=== PATIENT | female | born 1945 | race Caucasian/White ===

== ENCOUNTER → 2016-12-14 | Outpatient (CLI) | payer OTHER ==
--- NOTE | 2016-12-14 14:05 | MAMMOGRAPHY REPORT ---
BILATERAL DIGITAL SCREENING MAMMOGRAM WITH CAD: 12/14/2016 CLINICAL HISTORY: Routine screening examination. TECHNIQUE: Bilateral CC and MLO views were obtained. Current study was also evaluated with a Compute r Aided Detection (CAD) system. COMPARISON: Comparison is made to exams dated: 12/12/2015 mammogram, 12/10/2014 mammogram, 12/06/2013 m ammogram, 12/05/2012 mammogram, 12/03/2011 mammogram, and 12/01/2010 mammogram - [facility] enter. BREAST COMPOSITION: There are scattered areas of fibroglandular density in both breasts. FINDINGS: There are mild vascular calcifications bilaterally, and a benign coarse calcification in t he anterior left breast. There are also diffuse benign round and punctate microcalcifications mostly throughout the middle and anterior one third of each breast. No new suspicious mass, architectural distortion or cluster of microcalcifications is seen. IMPRESSION: ACR BI-RADS CATEGORY 1: NEGATIVE There is no mammographic evidence of malignancy. A 1 year screening mammogram is recommended. The pa tient will receive written notification of the results. Approximately 10% of breast cancers are not detected with mammography. A negative mammographic report should not delay biopsy if a clinically suggestive mass is present. Selam Patel M.D. ay/:12/14/2016 11:10:22 Lead Simulation Modeling Engineer: Donna VELEZ(Crow)(), [facility] letter sent: Normal 1/2 BI-RADS Code: ACR BI-RADS Category 1: Negative
== END | disposition home or self-care (01) ==
LOC: C.MAMM 10:24
PROVIDERS: ATTEND Family Medicine
DX: Z12.31 Encounter for screening mammogram for malignant neoplasm of breast (principal)

== ENCOUNTER → 2017-12-15 | Outpatient (CLI) | payer OTHER ==
--- NOTE | 2017-12-15 14:56 | MAMMOGRAPHY REPORT ---
BILATERAL DIGITAL SCREENING MAMMOGRAM TOMOSYNTHESIS WITH CAD: 12/15/2017 CLINICAL HISTORY: Routine screening. Patient has no complaints. TECHNIQUE: The study was acquired using full field digital technology and interpreted from soft copy. Breast tomosynthesis in addition to standard 2D mammography was performed. Current study was also ev aluated with a Computer Aided Detection (CAD) system. COMPARISON: Comparison is made to exams dated: 12/14/2016 mammogram, 12/12/2015 mammogram, 12/10/2014 m ammogram, 12/06/2013 mammogram, 12/05/2012 mammogram, and 12/03/2011 mammogram - [facility] enter. BREAST COMPOSITION: There are scattered areas of fibroglandular density in both breasts. FINDINGS: No suspicious masses, calcifications, or areas of architectural distortion are noted in either breast . There has been no significant interval change compared to prior exams. Scattered bilateral benign-a ppearing calcifications are not significantly changed. IMPRESSION: ACR BI-RADS CATEGORY 2: BENIGN There is no mammographic evidence of malignancy. A 1 year screening mammogram is recommended.( 019) The patient will receive written notification of the results. Some breast cancers are not detected with mammography. A negative mammographic report should not saurabh y biopsy if a clinically suggestive mass is present. Florinda Odell M.D. /:12/15/2017 14:10:20 Master Dyer: Michaela Dumont [facility] letter sent: Normal 1/2 BI-RADS Code: ACR BI-RADS Category 2: Benign
== END | disposition home or self-care (01) ==
LOC: C.MAMM 10:19
PROVIDERS: ATTEND Family Medicine
DX: Z12.31 Encounter for screening mammogram for malignant neoplasm of breast (principal)

== ENCOUNTER 2023-11-02 06:56 | Observation (INO) ==
--- OUTSIDE RECORDS SUMMARY | 2023-11-02 07:26 | External Medical Summary ---
Author Name Unknown Address Unknown Organization [id number]:[facility] [address] [place] [address] Laboratory Report Ordering Provider Test Date Status RIANYOJANA 10/27/2023 13:15:17 Final Warfarin Therapy
INR: 2 .0-3.0 conventional anticoagulation
INR: 2.5- 3.5 high intensity anticoagulation Observation Date Value Abnormality Reference (Units ) Status PT 10/27/2023 13:15:17 13.1 11.6-15.2 (seconds) Final INR 10/27/2023 13:15:17 1.0 0.8-1.2 Final Performing Location LAB[facility] [address] [place] [id number]
--- OUTSIDE RECORDS SUMMARY | 2023-11-02 07:26 | External Medical Summary ---
Author Name Unknown Address Unknown Organization [id number]:[facility] [place] [facility] [address] [place] [address] Laboratory Report Ordering Provider Test Date Status RIANYOJANA 10/27/2023 13:15:17 Final Observation Date Value Abnormality Reference (Units ) Status TSH 10/27/2023 13:15:17 55.30 Above high normal 0. 27-4.20 (uIU/mL) Final Performing Location LABORATORY C - [address] [place] [address]
--- OUTSIDE RECORDS SUMMARY | 2023-11-02 07:26 | External Medical Summary ---
Author Name Unknown Address Unknown Organization [id number]:[facility] [address] [place] [address] Laboratory Report Ordering Provider Test Date Status YOJANA MODI 10/27/2023 13:15:17 Final Observation Date Value Abnormality Reference (Units ) Status BUN 10/27/2023 13:15:17 22 Above high normal 6-20 (mg/dL) Final Creatinine 10/27/2023 13:15:17 1.4 Above high normal 0.5-1.0 (mg/dL) Final Glomerular filtration rate/1.73 sq M.predicted [Volume Rate/Area] in Serum, Plasma or Blood by Creatinine-based formula (CKD-EPI) 10/27/2023 13:15:17 38 Below low normal >=60 (mL/min) Final eGFR is calculated based on the CKD-EPI 2020 equation Sodium 10/27/2023 13:15:17 136 135-146 (m mol/L) Final Potassium 10/27/2023 13:15:17 4.0 3.5-5.1 (m mol/L) Final Cl 10/27/2023 13:15:17 97 Below low normal 98- 107 (mmol/L) Final CO2 10/27/2023 13:15:17 24 22-32 (mmo l/L) Final Anion gap 10/27/2023 13:15:17 15 7-15 (mmol /L) Final Glucose 10/27/2023 13:15:17 209 Above high normal 70 -120 (mg/dL) Final Albumin 10/27/2023 13:15:17 4.5 3.8-5.0 (g /dL) Final AST (Aspartate aminotransferase) 10/27/2023 13:15:17 43 Above high normal 10-35 (U/L) Final Alk Phos 10/27/2023 13:15:17 77 35-130 (U/ L) Final Bilirubin, Total 10/27/2023 13:15:17 0.4 <=1 .2 (mg/dL) Final Calcium 10/27/2023 13:15:17 10.0 8.4-10.2 ( mg/dL) Final Protein 10/27/2023 13:15:17 7.6 6.0-8.3 (g /dL) Final ALT (Alanine aminotransferase) 10/27/2023 13:15:17 25 10-35 (U/L) Eduardo bennett Performing Location LABORATORY [facility] [address] [facility] [address]
--- OUTSIDE RECORDS SUMMARY | 2023-11-02 07:26 | External Medical Summary | Summary of Care ---
Author Name Unknown Organization [facility] Address [address] [facility] [address] Phone [phone] Care Team Providers Care Assisted Living Manager Name Role Phone Mayelin Ritter MD Primary Care Provider [phone] Reason for Visit * Reason Comments Follow Up Encounter Details Date Type Department Care Team (Late st Contact Info) Description 09/14/2023 4:00 PM EDT Office Visit Cardiology, [facility] [address] [place] [address] Ricardo Deluna MD [address] [place] [address] HTN, goal below 140/90*; S/P angioplasty with stent; Old NM (myocardial infarction) Allergies No known active allergiesdocumented as of this encounter (statuses as of 09/14/2023) Medications Medication Sig Dispensed Refills Start Date End Date Status ASPIRIN EC LOW STRENGTH TBEC 81 MG OR take one tablet daily 34 5 4 Active nitroglycerin (NITROSTAT) 0.4 MG SUBLIndications: S/P angioplasty with stent 1 Tab under tongue every 5 MIN X 3 for CHEST PAIN 25 Tab 5 7 Active Additional Information Patient not taking.Reported on 09/14/2023 OneTouch Ultra In Vitro Strip (Glucose Blood)Indication s:Type 2 diabetes mellitus with hemoglobin A1c goal of less than 8.0% ([facility]) TEST BLOOD SUGAR THREE TIMES PER DAY DIRECTED - UNCONTROLLED DIABETES 300 Strip 3 3 Active metFORMIN HCl 850 MG Oral Tablet (Glucophage)Shayy cations:Type 2 diabetes mellitus with hemoglobin A1c goal of less than 8.0% (HCC) TAKE 1 TABLET BY MOUTH THREE TIMES A DAY WITH MEALS 300 Tablet 3 3 Active B-12 1000 MCG Oral TabletIndication s:Low serum vitamin B12 Take 1 tab by mouth daily. 0 3 Active Levothyroxine Sodium 88 MCG Oral Tablet (Levoxyl)Indicat ions:Hypothyroid ism, unspecified type Take 1 Tablet by mouth in the morning. (at least 30 min prior to breakfast or other meds). 90 Tablet 3 3 Active Pravastatin Sodium 80 MG Oral TabletIndication s:Dyslipidemia, goal LDL below 70 TAKE 1 TABLET BY MOUTH EVERY DAY 90 Tablet 3 4 Active Metoprolol Succinate ER 25 MG Oral Tablet Extended Release 24 Hour (toPROL XL)Indications:H TN, goal below 140/90 TAKE 1 TABLET BY MOUTH EVERY DAY IN THE MORNING 90 Tablet 3 4 Active amLODIPine Besylate 5 MG Oral Tablet (Norvasc)Indicat ions:HTN, goal below 140/90,Old NM (myocardial infarction) TAKE 1 TABLET BY MOUTH EVERY DAY 90 Tablet 3 4 Active Citalopram Hydrobromide 20 MG Oral Tablet (CeleXA) TAKE 1 TABLET BY MOUTH EVERY DAY 90 Tablet 1 4 Active Ezetimibe 10 MG Oral Tablet (Zetia)Indicatio ns:HTN, goal below 140/90,Old NM (myocardial infarction) TAKE 1 TABLET BY MOUTH EVERY DAY 90 Tablet 3 4 Active glipiZIDE 10 MG Oral Tablet (Glucotrol) TAKE 1 TABLET BY MOUTH TWICE A DAY 30 MINS BEFORE A MEAL 180 Tablet 1 4 Active Isosorbide Mononitrate ER 30 MG Oral Tablet Extended Release 24 Hour (Imdur)Indicatio ns:HTN, goal below 140/90 Take 2 Tablets by mouth in the morning. 180 Tablet 3 4 Active hydroCHLOROthiaz dimitry 25 MG Oral Tablet (Hydrodiuril) Take one 3 days per week 36 Tablet 11 4 Active Losartan Potassium 50 MG Oral Tablet (Cozaar) Take 1 Tablet by mouth in the morning. 90 Tablet 3 4 Active Tradjenta 5 MG Oral Tablet (linaGLIPtin) TAKE 1 TABLET BY MOUTH EVERY DAY 90 Tablet 2 2 09/14/19 24 Discontinued(Delbert hernandez preference/disc ontinuation) Losartan Potassium 50 MG Oral Tablet (Cozaar) TAKE 1 TABLET BY MOUTH TWICE A DAY 180 Tablet 2 4 09/14/19 24 Discontinued Isosorbide Mononitrate ER 30 MG Oral Tablet Extended Release 24 Hour (Imdur)Indicatio ns:HTN, goal below 140/90 TAKE 1 TABLET BY MOUTH EVERY DAY IN THE MORNING 90 Tablet 3 4 09/14/19 24 Discontinued documented as of this encounter (statuses as of 09/14/2023) Active Problems Problem Noted Date Diagnosed Date Chronic kidney disease, stage 3a 08/23/2023 Overview: Per CKD protocol Facet arthropathy, multilevel 09/28/2022 Atherosclerosis of n[place]ki co ronary artery of nik[place]ki heart with stable angina pectoris 02/17/2021 Age-related osteoporosis wit hout current pathological fracture 02/17/2021 Old NM (myocardial infarction) 01/03/2019 Chronic rhinitis 07/16/2015 HTN, goal below 140/90 07/17/2014 Type 2 diabetes mellitus wit h hemoglobin A1c goal of less than 8.0% 06/23/2013 Overview: ICD-10 update of inactive term DYSLIPIDEMIA, GOAL LDL BELOW 70 05/02/2009 Overview: Per Lipid Taxonomy. S/P angioplasty with stent 04/21/2005 Overview: TAXUS- RCA 02/17 GENERALIZED ANXIETY DIS 10/01/1999 Gastroesophageal reflux disease without esophagi tis 11/08/1998 ASCVD 11/08/1998 Hypothyroidism documented as of this encounter (statuses as of 09/14/2023) Resolved Problems Problem Noted Date Diagnosed Date Resolved Date Acute sinusitis 07/16/2015 12/09/2015 Viral URI with cough 07/16/2015 016 HTN, goal below 140/80 01/04/201207/17 Overview: Per HTN Protocol #27. HTN, GOAL BELOW 130/80 06/13/200901/06 Overview: Per HTN Taxonomy. Type 2 diabetes mellitus wit h hemoglobin A1c goal of less than 7.0% 03/14/2009 06/23/2013 Overview: Per Diabetes Taxonomy. ICD-10 update of inactive term Other nonspecific abnormal c ardiovascular system function study 03/29/2007 12/30/2016 Chronic coronary artery disease 03/28/2007 12/30/2016 Type 2 diabetes mellitus wit h hemoglobin A1c goal of less than 7.0% 06/21/2002 03/14/2009 Overview: Per Diabetes Taxonomy. ICD-10 update of inactive term Sequelae of myocardial infarction 04/29/2002 12/30/2016 Menopause 10/01/1999 12/30/2016 HTN, goal below 140/90 06/13 Overview: Per HTN Taxonomy. Mixed dyslipidemia Overview: Per Lipid Taxonomy. documented as of this encounter (statuses as of 09/14/2023) Immunizations Name Administration Dates Next Due COVID-19 mRNA, LNP-s, No Pre serve, 2-Dose Series (1DocWay) 03/12/2021,09/04/2020,08/14/2020 Pneumococcal Conjugate Vacc, 13 Valent (Prevnar) 04/03/2015 Pneumococcal Polysaccharide PPV23 (Pneumovax) 06/23/2010 Season Influenza, Quad, PF, Adjuvanted, 65+ Yrs, IM (FLUAD) 03/13/2020 Seasonal Influenza, PF, 6 M & above, IM , (FluLaval or Fluzone) 03/15/2018,03/01/2017 Seasonal Influenza, Quadriva lent Hd (Fluzone Hd) 02/23/2022,03/27/2021 Seasonal Influenza, Quadriva lent, No Preserve, IM 03/04/2016,03/11/2015 Seasonal Influenza, Split, I IV3, With Preserve, Inj 03/13/2013,03/07/2012,02/26/2011,1009/2009,02/21/2009,03/12/2008,03/23/20 07,02/23/2006 03/13/2014 Seasonal Influenza, Trivalen t, Adjuvanted, 65+ yrs 03/15/2019 TDAP (age 10 and older)(Boostrix) 11/07/2013 documented as of this encounter Social History Tobacco Use Types Packs/Day Years Used Date Smoking Tobacco: Former Cigarettes 0.3 20 0 05/26/1975 - 05/26/1995 Smokeless Tobacco: Never Tobacco Cessation:Counseling Given: Not Answered Comments:quit Alcohol Use Standard Drinks/Week Comments No 0 (1 standard drink = 0.6 oz pur e alcohol) PHQ-2 Answer Date Recorded PHQ Adult Total Score 0 08/28/2020 Hunger Vital Sign Answer Date Recorded Worried About Running Out of Food in the Last Ye ar Never true 01/03/2019 Ran Out of Food in the Last Year Never true 01/03/2019 Sex and Gender Information Value Date Recorded Sex Assigned at Female 03/30/2019 10:54 AM EST Gender Identity Female 03/30/2019 10:54 AM EST Sexual Orientation Straight 03/30/2019 10 :54 AM EST Job Start Date Occupation Industry Not on file Not on file Not on file documented as of this encounter Last Filed Vital Signs Vital Sign Reading Time Taken Comments Blood Pressure 158/66 09/14/2023 4:01 PM EDT Pulse 68 09/14/2023 4:01 PM EDT Temperature - - Respiratory Rate 20 09/14/2023 4:01 PM EDT Oxygen Saturation - - Inhaled Oxygen Concentration - - Weight 66.6 kg (146 lb 12.8 oz) 09/14/2023 4:01 PM EDT Height - - Body Mass Index 26 08/17/2023 5:30 PM EDT documented in this encounter Progress Notes * Ricardo Deluna MD - 09/14/2023 4:11 PM EDT September 14, 2023 Cardiology Follow Up Referring Provider: PCP: MAYELIN [address] [place] [address] Chief Complaint: Follow-up ischemic heart disease SUBJECTIVE: Leyla Catherine is a 77 year old year old female with ongoing cardiac issues 1. Atherosclerotic coronary disease status post anterior septal myocardial infarction in October of 1997. 2. Prior PTCA and stenting of the left anterior descending in 2000. 3. PTCA and stenting of the right coronary artery in 2003. 4. Hypertension. 5. Hyperlipidemia with limited statin intolerance, currently on pravastatin 80 mg per day. 6. Stable class 2 angina pectoris with atypical symptoms at baseline 7. Aortic sclerosis 8. Left bundle-branch block Patient presents today in routine followup. Notes not having felt as well over the last year's timein part in conjunction with loss of . But feels feels more breathless with physical exertion. No chest pains no tachy palpitations no dizziness. Blood pressure is trending lower. No fevers chills unexplained infections. No bleeding difficulties. Still chronic back pain A Complete Review of Systems is as stated above or negative. Patient Active Problem List Diagnosis Code Gastroesophageal reflux disease without esophagitis K21.9 ASCVD I25.10 GENERALIZED ANXIETY DIS F41.1 Hypothyroidism E03.9 S/P angioplasty with stent Z95.820 DYSLIPIDEMIA, GOAL LDL BELOW 70 E78.5 Type 2 diabetes mellitus with hemoglobin A1c goal of less than 8.0% ([facility]) E11.9 HTN, goal below 140/90 I10 Chronic rhinitis J31.0 Old NM (myocardial infarction) I25.2 Atherosclerosis of nikolski coronary artery of nikolski heart with stable angina pectoris ([facility]) I25.118 Age-related osteoporosis without current pathological fracture M81.0 Facet arthropathy, multilevel M47.819 Chronic kidney disease, stage 3a ([facility]) N18.31 Review of patient's allergies indicates: No Known Allergies Current Outpatient Medications Medication Sig Dispense Refill ASPIRIN EC LOW STRENGTH TBEC 81 MG OR take one tablet daily 34 5 metFORMIN HCl 850 MG Oral Tablet (Glucophage) TAKE 1 TABLET BY MOUTH THREE TIMES A DAY WITH MEALS 300 Tablet 3 B-12 1000 MCG Oral Tablet Take 1 tab by mouth daily. Levothyroxine Sodium 88 MCG Oral Tablet (Levoxyl) Take 1 Tablet by mouth in the morning. (at least 30 min prior to breakfast or other meds). 90 Tablet 3 Pravastatin Sodium 80 MG Oral Tablet TAKE 1 TABLET BY MOUTH EVERY DAY 90 Tablet 3 Metoprolol Succinate ER 25 MG Oral Tablet Extended Release 24 Hour (toPROL XL) TAKE 1 TABLET BY MOUTH EVERY DAY IN THE MORNING 90 Tablet 3 Losartan Potassium 50 MG Oral Tablet (Cozaar) TAKE 1 TABLET BY MOUTH TWICE A DAY 180 Tablet 2 amLODIPine Besylate 5 MG Oral Tablet (Norvasc) TAKE 1 TABLET BY MOUTH EVERY DAY 90 Tablet 3 Citalopram Hydrobromide 20 MG Oral Tablet (CeleXA) TAKE 1 TABLET BY MOUTH EVERY DAY 90 Tablet 1 Ezetimibe 10 MG Oral Tablet (Zetia) TAKE 1 TABLET BY MOUTH EVERY DAY 90 Tablet 3 Isosorbide Mononitrate ER 30 MG Oral Tablet Extended Release 24 Hour (Imdur) TAKE 1 TABLET BY MOUTHEVERY DAY IN THE MORNING 90 Tablet 3 glipiZIDE 10 MG Oral Tablet (Glucotrol) TAKE 1 TABLET BY MOUTH TWICE A DAY 30 MINS BEFORE A MEAL 180 Tablet 1 nitroglycerin (NITROSTAT) 0.4 MG SUBL 1 Tab under tongue every 5 MIN X 3 for CHEST PAIN (Patient not taking: Reported on 09/14/2023) 25 Tab 5 OneTouch Ultra In Vitro Strip (Glucose Blood) TEST BLOOD SUGAR THREE TIMES PER DAY DIRECTED - UNCONTROLLED DIABETES 300 Strip 3 No current facility-administered medications for this visit. OBJECTIVE/PHYSICAL EXAMINATION: BP 158/66 (BP Site: Left Arm, BP Position: Sitting, BP Cuff Size: Regular) | Pulse 68 | Resp 20 | Wt 66.6 kg (146 lb 12.8 oz) | BMI 26.00 kg/m | BSA 1.72 m General: no acute distress and stated age Head: normocephalic, no masses, lesions, tenderness or abnormalities Eyes: conjunctiva are pink and non-injected, sclera clear Throat: clear Nares: without discharge Neck: supple, no adenopathy, no bruits, normal jugular venous pulse, no hepatojugular reflux, bilateral carotid bruits are present right greater than left Chest: normal shape and normal respiratory effort Lungs: clear to auscultation and percussion Cardiac Exam: - regular rate & rhythm, harsh grade 2/6 systolic murmur no diastolic murmur, gallop or rub - normal S-1, normal S-2 Abdomen: abdomen soft, non-tender, no abnormal masses, no hepatosplenomegaly, no abdominal bruit, no femoral bruit Musculoskeletal: no gait disturbance, no joint inflammation, no deforming arthritis Extremities: Trivial edema, no cyanosis, pulses intact 2+/4 Neuro: grossly normal exam Data: EKG performed September 14, 2023 , and reviewed personally : Normal sinus rhythm at 60 beats per minute with left bundle branch block Lexiscan stress nuclear study January 28, 2022 Abnormal Lexiscan nuclear stress test. Stress testing is positive for scar without superimposed ischemia. Moderate sized infarct involving the anterior, anterior lateral and inferior septal ly consistent with LAD distribution. Mildly reduced LV systolic function with akinesis of the above segments, EF calculated to be 45%. No previous studies available for comparison. Echocardiogram January 28, 2022 Compared to last available study, there has been no interval change. Normal LV chamber size and wall thickness. Mildly reduced LV systolic function. Calculated LV ejection Fraction = 44% (bi-plane method of discs). There is hypokinesis to akinesis of the mid and apical anterior wall and anterior septum, with scarring of the anterior septum. Grade 1 diastolic dysfunction current Focal calcification of the left coronary cusp along with moderate aortic valve sclerosis. Lipid Panel Results: Results for orders placed or performed in visit on 04/07/16 LIPID PANEL Result Value Ref Range HOURS FASTING 12 hours Triglycerides 123 <200 mg/dL Cholesterol 167 <200 mg/dL HDL Cholesterol 46 >39 mg/dL Cholesterol-HDL Ratio 3.6 LDL Cholesterol 96 0 - 129 mg/dL Results for orders placed or performed in visit on 12/10/21 LIPID PANEL WITH DIRECT LDL IF TG IS HIGH Result Value Ref Range Triglycerides 127 <=174 mg/dL Cholesterol 141 <200 mg/dL HDL Cholesterol 47 (L) >49 mg/dL Non-HDL Cholesterol 94 <=159 mg/dL LDL Cholesterol 69 <=129 mg/dL ASSESSMENT: 77 year old year old female Longstanding ischemic heart disease withstable class 2 functional capacity and chronic exertional dyspnea. Most recently in the last year's time has had symptoms of increasing dyspnea labile blood pressures. No specific chest pain no dizziness or lightheadedness PLAN: Will optimize medical therapies and if symptoms persist consider coronary angiography Reduce losartan to 50 mg daily Increase isosorbide mononitrate to 60 mg daily Resume hydrochlorothiazide 25 mg 3 days per week DISPOSITION: Return 6 to 8 weeks Rciardo Deluna MD Cardiology, [address] [address] documented in this encounter Nursing Notes * Selam Vazquez CMA - 09/14/2023 3:55 PM EDT Examination Room: 14 Name: Leyla Catherine Date of : (1945). Reason for Visit: 1 yr f/u Interim Hospitalization(s): none Problems/Concerns: Occasional fluttering palpitations. Resolves with rest. Chest Pain/SOB: Chest heaviness with walking, sometimes at rest. Takes about an hr to go away. Worsening SOBOE, states occurs with any activity. [facility] Discussed: No [facility] is a way you can talk to your provider online through e-mail. Would you like to sign up? I can activate it for you? DECLINES Patient was instructed to not get up on the exam table until directed and assisted by their provider; patient is to remain seated in the chair/ wheelchair/ exam table for fall prevention and safety reasons. Patient is aware to have assistance to step down off exam table with personnel. Patient voiced full comprehension of instructions. documented in this encounter Plan of Treatment Upcoming Encounters Date Type Department Care Team (Late st Contact Info) Description 10/27/2023 11:00 AM EDT Office Visit Cardiology, [facility] [address] [facility] [place] [address] Ricardo Deluna MD [address] [facility] [place] [address] 03/16/2024 1:20 PM EDT Office Visit [facility] [address] [place] [facility] [place] [id number] Mayelin Ritter MD [address] [place] [address] Scheduled Orders Name Type Priority Associated Diagnoses Orde r Schedule EKG EKG Routine HTN, goal below 140/90 S/P angioplasty with stent Old NM (myocardial infarction) Ordered: 09/14/2023 Health Maintenance Due Date Last Done Comments Zoster Vaccines (1 of 2) 1994 CKD PHOS USE SMARTSET 34535 03/29/2008 03/29/2007, 1 Mammogram 01/07/2021 01/08/2020, 080 05/2017, 12/14/2016, Additional history exists *BISPHONATE OR OTHER ACCEPTABLE MEDICATION NEEDED FOR OSTEOPOROSIS (REFER TO SMARTSET #1146) 02/19/2021 Depression Screening 08/28/2021 08/28/2020 Diabetic Foot Exam 02/17/2022 02/17/2021, 0 10/04/2019, 08/31/2018, Additional history exists Diabetic Eye Exam 08/05/2022 08/05/2021, , 06/28/2017, Additional history exists CKD HGB USE SMARTSET 05540 12/10/202212/10, 12/10/2021, 04/27/2018, Additional history exists DXA Scan 12/16/2022 12/16/2020, 100 12/2012, 02/21/2013, Additional history exists COVID-19 Vaccine ( season) 2023 03/12/2021, 09/04/2020, 08/14/2020 DTaP,Tdap,and Td Vaccines (2 - Td or Tdap) 11/08/2023 11/07/2013, 10/24/2003 Influenza Vaccine (FLU shot) (Season Ended) 2024 02/23/2022, 03/27/2021, 03/13/2020, Additional history exists GFR 02/10/2024 08/10/2023, 03/18, 06/09/2022, Additional history exists HbA1c 02/10/2024 08/10/2023, 03/18, 06/09/2022, Additional history exists Albumin/Creatinine Ratio 03/22/2024 023, 08/05/2021, 08/20/2020, Additional history exists B-12 08/09/2024 08/10/2023, 03/18, 06/09/2022, Additional history exists TSH 08/09/2024 08/10/2023, 03/18, 06/09/2022, Additional history exists Pneumococcal Vaccine: 65+ Years Completed 04/03/2015, 06/23/2010, 10/24/2004 VITAMIN D LEVEL ONCE IN A LIFETIME-USE SMARTSET# [id number] Completed 06/09/2022 GARDASIL-HPV IMMUNIZATION SERIES Aged Out No longer eligible based on patient's age to complete this topic Hepatitis B Aged Out No longer eligi ble based on patient's age to complete this topic MENINGOCOCCAL (MENACTRA/MENVEO) Aged Out No longer eligible based on patient's age to complete this topic documented as of this encounter Medical Devices Implanted Type Area Second Language Tutor Device Identifier Shelf Expiration Date Model / Serial / Lot Mx60 24.0d Implanted:Qty: 1 on 11/15/2014 by Mau Angel MD at OR [facility] Eye [employer] 04/17/2017 [id number] / / [id number] Lens 23.5 Mx60 - [id number] - [id number] Implanted:Qty: 1 on 01/04/2017 by Terrence Mccormack DO at OR [facility] Right: Eye [employer] : SURGICAL 05/16/2019 [id number] / [id number] / [id number] documented as of this encounter Visit Diagnoses Diagnosis HTN, goal below 140/90- Primary Unspecified essential hypertension S/P angioplasty with stent Postsurgical percutaneous transluminal coronary angioplasty status Old NM (myocardial infarction) Old myocardial infarction documented in this encounter Advance Directives Documents on File Type Date Recorded Patient [employer] Expl anation Advance Directives and Living Will 10/06/2022 ADVANCE DIRECTIVE / LIVING WILL LIVING WILL Latest Code Status on File Code Status Date Activated Date Inactivated Comments Full Code 01/04/2017 6:33 AM 01/04/2017 12:43 PM This order reflects the patients wishes and were consensually agreed upon. Code Status History Code Status Date Activated Date Inactivated Comments Full Code 11/15/2014 6:39 AM 11/15/2014 12:27 PM This o rder reflects the patients wishes and were consensually agreed upon. Full Code 03/29/2007 5:19 PM 03/30/2007 4:48 PM Care Teams Assisted Living Manager Relationship Specialty Start Date End Date Mayelin Ritter MD [address] [place] [address] PCP - General 03/04/00 documented as of this encounter"
--- OUTSIDE RECORDS SUMMARY | 2023-11-02 07:26 | External Medical Summary ---
Author Name Unknown Address Unknown Organization [id number]:[facility] [place] [address] [place] [address] Laboratory Report Ordering Provider Test Date Status YOJANA MODI 10/27/2023 13:15:17 Final Observation Date Value Abnormality Reference (Units ) Status T4, Free 10/27/2023 13:15:17 <0.1 Below low normal 0.9 -1.7 (ng/dL) Final Performing Location LAB[facility]ATORY [facility] - [address] [place] [address]
--- OUTSIDE RECORDS SUMMARY | 2023-11-02 07:26 | External Medical Summary ---
Author Name Unknown Address Unknown Organization [id number][facility] [address] [place] [address] Laboratory Report Ordering Provider Test Date Status YOJANA MODI 10/27/2023 13:15:17 Final Observation Date Value Abnormality Reference (Units ) Status WBC, Total 10/27/2023 13:15:17 8.07 4.00-10.8 0 (K/uL) Final RBC 10/27/2023 13:15:17 4.78 3.85-5.15 (M/uL) Final Hemoglobin 10/27/2023 13:15:17 13.2 12.0-15.3 (g/dL) Final HCT 10/27/2023 13:15:17 39.9 36.0-45.2 (%) Final MCV 10/27/2023 13:15:17 83.5 81.5-97.5 (fL) Final MCH 10/27/2023 13:15:17 27.6 27.0-34.0 (pg) Final MCHC 10/27/2023 13:15:17 33.1 32.0-36.0 (g/dL) Final RDW 10/27/2023 13:15:17 14.6 11.5-15.5 (%) Final Platelets 10/27/2023 13:15:17 197 140-400 (K /uL) Final MPV 10/27/2023 13:15:17 10.8 6.6-11.1 ( fL) Final Per[facility] Location [facility] - [address] [place] [address]
--- OUTSIDE RECORDS SUMMARY | 2023-11-02 07:26 | External Medical Summary | Summary of Care ---
Author Name Unknown Organization [facility] Address [address] [facility] [address] Phone [phone] Care Team Providers Care Field Installation Technician Name Role Phone Viktor Mcdonald MD Primary Care Provider [phone] Reason for Visit * Reason Comments Outpatient Testing Encounter Details Date Type Department Care Team (Late st Contact Info) Description 10/27/2023 1:30 PM EDT Laboratory Laboratory, [facility] [address] [address] [facility] [address] [address] Old CO (myocardial infarction); BATRES (dyspnea on exertion) Allergies No known active allergiesdocumented as of this encounter (statuses as of 10/27/2023) Medications Medication Sig Dispensed Refills Start Date End Date Status ASPIRIN EC LOW STRENGTH TBEC 81 MG OR take one tablet daily 34 5 03/24/2004 Active nitroglycerin (NITROSTAT) 0.4 MG SUBLIndications:S/P angioplasty with stent 1 Tab under tongue every 5 MIN X 3 for CHEST PAIN 25 Tab 5 12/30/2016 Active Additional Information Patient not taking.Reported on 09/14/2023 OneTouch Ultra In Vitro Strip (Glucose Blood)Indications:T ype 2 diabetes mellitus with hemoglobin A1c goal of less than 8.0% ([facility]) TEST BLOOD SUGAR THREE TIMES PER DAY DIRECTED - UNCONTROLLED DIABETES 300 Strip 3 10/09/2022 Active metFORMIN HCl 850 MG Oral Tablet (Glucophage)Indicat ions:Type 2 diabetes mellitus with hemoglobin A1c goal of less than 8.0% ([facility]) TAKE 1 TABLET BY MOUTH THREE TIMES A DAY WITH MEALS 300 Tablet 3 03/06/2023 Active B-12 1000 MCG Oral TabletIndications:L ow serum vitamin B12 Take 1 tab by mouth daily. 04/13/2023 Active Levothyroxine Sodium 88 MCG Oral Tablet (Levoxyl)Indication s:Hypothyroidism, unspecified type Take 1 Tablet by mouth in the morning. (at least 30 min prior to breakfast or other meds). 90 Tablet 3 04/13/2023 Active Pravastatin Sodium 80 MG Oral TabletIndications:D yslipidemia, goal LDL below 70 TAKE 1 TABLET BY MOUTH EVERY DAY 90 Tablet 3 06/02/2023 Active Metoprolol Succinate ER 25 MG Oral Tablet Extended Release 24 Hour (toPROL XL)Indications:HTN, goal below 140/90 TAKE 1 TABLET BY MOUTH EVERY DAY IN THE MORNING 90 Tablet 3 06/09/2023 Active amLODIPine Besylate 5 MG Oral Tablet (Norvasc)Indication s:HTN, goal below 140/90,Old CO (myocardial infarction) TAKE 1 TABLET BY MOUTH EVERY DAY 90 Tablet 3 06/09/2023 Active Citalopram Hydrobromide 20 MG Oral Tablet (CeleXA) TAKE 1 TABLET BY MOUTH EVERY DAY 90 Tablet 1 07/01/2023 Active Ezetimibe 10 MG Oral Tablet (Zetia)Indications: HTN, goal below 140/90,Old CO (myocardial infarction) TAKE 1 TABLET BY MOUTH EVERY DAY 90 Tablet 3 06/30/2023 Active glipiZIDE 10 MG Oral Tablet (Glucotrol) TAKE 1 TABLET BY MOUTH TWICE A DAY 30 MINS BEFORE A MEAL 180 Tablet 1 08/26/2023 Active Isosorbide Mononitrate ER 30 MG Oral Tablet Extended Release 24 Hour (Imdur)Indications: HTN, goal below 140/90 Take 2 Tablets by mouth in the morning. 180 Tablet 3 09/14/2023 Active hydroCHLOROthiazide 25 MG Oral Tablet (Hydrodiuril) Take one 3 days per week 36 Tablet 09/14/2023 Active Losartan Potassium 50 MG Oral Tablet (Cozaar) Take 1 Tablet by mouth in the morning. 90 Tablet 3 09/14/2023 Active Hospital, Clinic, or Other Facility Administered Medication Ordered Dose Route Frequency Start Date End Date Status perflutren lipid microsphere inj SUSP 1.956 mgIndications:Old CO (myocardial infarction) 1.956 mg IV ONCE PRN 10/27/2023 10/27/2023 E nded documented as of this encounter (statuses as of 10/27/2023) Active Problems Problem Noted Date Diagnosed Date Chronic kidney disease, stage 3a 08/23/2023 Overview: Per CKD protocol Facet arthropathy, multilevel 09/28/2022 Atherosclerosis of [place] co ronary artery of [place] heart with stable angina pectoris 02/17/2021 Age-related osteoporosis wit hout current pathological fracture 02/17/2021 Old CO (myocardial infarction) 01/03/2019 Chronic rhinitis 07/16/2015 HTN, [...] as of this encounter (statuses as of 10/27/2023) Resolved Problems Problem Noted Date Diagnosed Date [...] 06/13 Overview: Per HTN Taxonomy. Mixed dyslipidemia 9 Overview: Per Lipid Taxonomy. documented as of this encounter (statuses as of 10/27/2023) Immunizations Name Administration Dates Next Due COVID-19 mRNA, LNP-s, No Pre serve, 2-Dose Series (Tube2Tone) 03/12/2021,09/04/2020,08/14/2020 Pneumococcal Conjugate Vacc, 13 Valent (Prevnar) 04/03/2015 Pneumococcal Polysaccharide PPV23 (Pneumovax) 06/23/2010 Season Influenza, Quad, PF, Adjuvanted, 65+ Yrs, IM (FLUAD) 03/13/2020 Seasonal Influenza, PF, 6 M & above, IM , (FluLaval or Fluzone) 03/15/2018,03/01/2017 Seasonal Influenza, Quadriva lent Hd (Fluzone Hd) 02/23/2022,03/27/2021 Seasonal Influenza, Quadriva lent, No Preserve, IM 03/04/2016,03/11/2015 Seasonal Influenza, Split, I IV3, With Preserve, Inj 03/13/2013,03/07/2012,02/26/2011,09/2009,02/21/2009,03/12/2008,03/23/20 07,02/23/2006 03/13/2014 Seasonal Influenza, Trivalen t, Adjuvanted, 65+ yrs 03/15/2019 TDAP (age 10 and older)(Boostrix) 11/07/2013 documented as of this encounter Social History Tobacco Use Types Packs/Day Years Used Date Smoking Tobacco: Former Cigarettes 0.3 20 0 05/26/1975 - 05/26/1995 Smokeless Tobacco: Never Comments:quit Alcohol Use Standard Drinks/Week Comments No [...] on file documented as of this encounter Plan of Treatment Upcoming Encounters Date Type Department Care Team (Late st Contact Info) Description 03/16/2024 1:20 PM EDT Office Visit Located Within [facility] [address] [facility] [place] [address] Viktor Mcdonald MD [address] [place] [facility] [place] [address] Health Maintenance Due Date Last Done Comments Zoster Vaccines (1 of 2) 1994 CKD PHOS USE SMARTSET 05634 03/29/2008 03/29/2007, 1 Mammogram 01/07/2021 01/08/2020, 0805/2017, 12/14/2016, Additional history exists *BISPHONATE OR OTHER ACCEPTABLE MEDICATION NEEDED FOR OSTEOPOROSIS (REFER TO SMARTSET #1146) 02/19/2021 Depression Screening 08/28/2021 08/28/2020 Diabetic Foot Exam 02/17/2022 02/17/2021, 0 10/04/2019, 08/31/2018, Additional history exists Diabetic Eye Exam 08/05/2022 08/05/2021, , 06/28/2017, Additional history exists DXA Scan 12/16/2022 12/16/2020, 1012/2012, 02/21/2013, Additional history exists COVID-19 Vaccine ( season) 2023 03/12/2021, 09/04/2020, 08/14/2020 DTaP,Tdap,and Td Vaccines (2 - Td or Tdap) 11/08/2023 11/07/2013, 10/24/2003 Influenza Vaccine (FLU shot) (Season Ended) 2024 02/23/2022, 03/27/2021, 03/13/2020, Additional history exists HbA1c 02/10/2024 08/10/2023, 03/18, 06/09/2022, Additional history exists Albumin/Creatinine Ratio 03/22/2024 023, 08/05/2021, 08/20/2020, Additional history exists GFR 04/27/2024 10/27/2023, 07/16, 04/06/2023, Additional history exists B-12 08/09/2024 08/10/2023, 03/18, 06/09/2022, Additional history exists TSH 08/09/2024 08/10/2023, 03/18, 06/09/2022, Additional history exists CKD HGB USE SMARTSET 32178 10/26/202410/26, 10/27/2023, 12/10/2021, Additional history exists Pneumococcal Vaccine: 65+ Years Completed 04/03/2015, 06/23/2010, 10/24/2004 VITAMIN D LEVEL ONCE IN A LIFETIME-USE SMARTSET# 89498 Completed 06/09/2022 GARDASIL-HPV IMMUNIZATION SERIES Aged Out No longer eligible based on patient's age to complete this topic Hepatitis B Aged Out No longer eligi ble based on patient's age to complete this topic MENINGOCOCCAL (MENACTRA/MENVEO) Aged Out No longer eligible based on patient's age to complete this topic documented as of this encounter Medical Devices Implanted Type Area Fur Farmer Device Identifier Shelf Expiration Date Model / Serial / Lot Mx60 24.0d Implanted:Qty: 1 on 11/15/2014 by Mau Angel MD at OR [facility] Eye [employer] 04/17/2017 [id number] / / [id number] Lens 23.5 Mx60 - [id number] - [id number] Implanted:Qty: 1 on 01/04/2017 by Terrence Mccormack DO at OR [facility] Right: Eye [employer] : SURGICAL 05/16/2019 [id number] / [id number] / [id number] documented as of this encounter Procedures Procedure Name Priority Date/Time Associated Diagnosis Comments DIFFERENTIAL, AUTOMATED Routine 10/27/2023 1:15 PM EDT Old CO (myocardial infarction) BATRES (dyspnea on exertion) COMPREHENSIVE METABOLIC PANEL Routine 10/27/2023 1:15 PM EDT Old CO (myocardial infarction) BATRES (dyspnea on exertion) CBC Routine 10/27/2023 1:15 PM EDT Old CO (myocardial infarction) BATRES (dyspnea on exertion) PT INR Routine 10/27/2023 1:15 PM EDT Old CO (myocardial infarction) BATRES (dyspnea on exertion) APTT Routine 10/27/2023 1:15 PM EDT Old CO (myocardial infarction) BATRES (dyspnea on exertion) CBC Routine 10/27/2023 1:15 PM EDT Old CO (myocardial infarction) BATRES (dyspnea on exertion) documented in this encounter Results * DIFFERENTIAL, AUTOMATED (10/27/2023 1:15 PM EDT) WBC 8.07 4.00 - 10.80 K/uL 10/27/2023 1:35 PM EDT [facility] Neutrophils % 69.0 40.0 - 75.0 % 10/27/2023 1:35 PM EDT [facility] Lymphocytes % 19.0 18.0 - 42.0 % 10/27/2023 1:35 PM EDT [facility] Monocytes % 8.4 1.0 - 11.0 % 10/27/2023 1:35 PM EDT [facility] Eosinophils % 2.6 0.0 - 6.0 % 10/27/2023 1:35 PM EDT [facility] Basophils % 1.0 0.0 - 2.0 % 10/27/2023 1:35 PM EDT [facility] Absolute Neutrophils 5.57 1.80 - 7.70 K/uL 10/27/2023 1:35 PM EDT [facility] Absolute Lymphocytes 1.53 1.00 - 4.80 K/ul 10/27/2023 1:35 PM EDT [facility] Absolute Monocytes 0.68 0.00 - 1.10 K/uL 10/27/2023 1:35 PM EDT [facility] Absolute Eosinophils 0.21 0.00 - 0.70 K/uL 10/27/2023 1:35 PM EDT [facility] Absolute Basophils 0.08 0.00 - 0.20 K/uL 10/27/2023 1:35 PM EDT [facility] 57[facility]10 Blood Venous blood specimen / Unknown Venipuncture / Unknown 10/27/2023 1:15 PM EDT 10/27/2023 1:15 PM EDT Ricardo Deluna MD LAB BLOOD ORDERABLES [facility] [place] [address] * CBC (10/27/2023 1:15 PM EDT) WBC 8.07 4.00 - 10.80 K/uL 10/27/2023 1:35 PM EDT [facility] RBC 4.78 3.85 - 5.15 M/uL 10/27/2023 1:35 PM EDT [facility] HGB 13.2 12.0 - 15.3 g/dL 10/27/2023 1:35 PM EDT [facility] 57[facility]10 HCT 39.9 36.0 - 45.2 % 10/27/2023 1:35 PM EDT [facility] MCV 83.5 81.5 - 97.5 fL 10/27/2023 1:35 PM EDT [facility] MCH 27.6 27.0 - 34.0 pg 10/27/2023 1:35 PM EDT [facility] MCHC 33.1 32.0 - 36.0 g/dL 10/27/2023 1:35 PM EDT [facility] RDW 14.6 11.5 - 15.5 % 10/27/2023 1:35 PM EDT [facility] PLT 197 140 - 400 K/uL 10/27/2023 1:35 PM EDT [facility] MPV 10.8 6.6 - 11.1 fL 10/27/2023 1:35 PM EDT [facility] Blood Venous blood specimen / Unknown Venipuncture / Unknown 10/27/2023 1:15 PM EDT 10/27/2023 1:15 PM EDT Ricardo Deluna MD LAB BLOOD ORDERABLES Performing Organization Address City/[facility]/ZIP Co de Phone Number [facility] [address] [place] [address] * APTT (10/27/2023 1:15 PM EDT) aPTT 36 21 - 38 seconds 10/27/2023 2:20 PM EDT [facility] Blood Venous blood specimen / Unknown Venipuncture / Unknown 10/27/2023 1:15 PM EDT 10/27/2023 1:15 PM EDT Narrative [facility]10 - 10/27/2023 2:20 PM EDT Anticoagulation may affect testing. Refer to [employer] Test Catalog for a list of effects. Ricardo Deluna MD LAB BLOOD ORDERABLES [facility] [address] * PT INR (10/27/2023 1:15 PM EDT) Prothrombin Time 13.1 11.6 - 15.2 seconds 10/27/2023 2:19 PM EDT [facility] 57-10 INR 1.0 0.8 - 1.2 10/27/2023 2:19 PM EDT [facility]10 Blood Venous blood specimen / Unknown Venipuncture / Unknown 10/27/2023 1:15 PM EDT 10/27/2023 1:15 PM EDT Narrative [facility]-10 - 10/27/2023 2:19 PM EDT Warfarin Therapy INR: 2.0-3.0 conventional anticoagulation INR: 2.5-3.5 high intensity anticoagulation Ricardo Deluna MD LAB BLOOD ORDERABLES [facility] [place] [address] * (ABNORMAL) COMPREHENSIVE METABOLIC PANEL (10/27/2023 1:15 PM EDT) BUN 22(H) 6 - 20 mg/dL 10/27/2023 2:21 PM EDT [facility] Creatinine 1.4(H) 0.5 - 1.0 mg/dL 10/27/2023 2:21 PM EDT [facility] Estimated Glomerular Filtration Rate 38(L) >=60 mL/min 10/27/2023 2:21 PM EDT [facility]10 Comment:eGFR is calculated b ased on the CKD-EPI 2020 equation Sodium 136 135 - 146 mmol/L 10/27/2023 2:21 PM EDT [facility] Potassium 4.0 3.5 - 5.1 mmol/L 10/27/2023 2:21 PM EDT [facility]10 Chloride 97(L) 98 - 107 mmol/L 10/27/2023 2:21 PM EDT [facility]10 CO2 24 22 - 32 mmol/L 10/27/2023 2:21 PM EDT [facility] 57-10 Anion Gap 15 7 - 15 mmol/L 10/27/2023 2:21 PM EDT [facility] Glucose 209(H) 70 - 120 mg/dL 10/27/2023 2:21 PM EDT [facility] 57[facility]10 Albumin 4.5 3.8 - 5.0 g/dL 10/27/2023 2:21 PM EDT [facility] 57[facility]10 AST 43(H) 10 - 35 U/L 10/27/2023 2:21 PM EDT [facility]10 Alkaline Phosphatase 77 35 - 130 U/L 10/27/2023 2:21 PM EDT [facility] Bilirubin, Total 0.4 <=1.2 mg/dL 10/27/2023 2:21 PM EDT [facility] Calcium 10.0 8.4 - 10.2 mg/dL 10/27/2023 2:21 PM EDT [facility] Protein 7.6 6.0 - 8.3 g/dL 10/27/2023 2:21 PM EDT [facility] 57[facility]10 ALT 25 10 - 35 U/L 10/27/2023 2:21 PM EDT [facility] 57[facility]10 Blood Venous blood specimen / Unknown Venipuncture / Unknown 10/27/2023 1:15 PM EDT 10/27/2023 1:15 PM EDT Ricardo Deluna MD LAB BLOOD ORDERABLES Performing Organization Address City/State/[facility] Co de Phone Number [facility] [address] [place] [address] documented in this encounter Visit Diagnoses Diagnosis Old CO (myocardial infarction) Old myocardial infarction BATRES (dyspnea on exertion) Other dyspnea and respiratory abnormality documented in this encounter Advance Directives Documents on File Type Date Recorded Patient Human Resources Support Specialist Expl anation Advance Directives and Living Will 10/06/2022 ADVANCE DIRECTIVE / LIVING WILL LIVING WILL * Full Code (Latest Code Status on File) Date Activated Date Inactivated Comments 01/04/2017 6:33 AM 01/04/2017 12:43 PM This order reflects the patients wishes and were consensually agreed upon. * Full Code Date Activated Date Inactivated Comments 11/15/2014 6:39 AM 11/15/2014 12:27 PM This order re flects the patients wishes and were consensually agreed upon. * Full Code Date Activated Date Inactivated Comments 03/29/2007 5:19 PM 03/30/2007 4:48 PM Care Teams Field Installation Technician Relationship Specialty Start Date End Date Viktor Mcdonald MD [address] [facility] [place] [id number] PCP - General 03/04/00 documented as of this encounter
--- OUTSIDE RECORDS SUMMARY | 2023-11-02 07:26 | External Medical Summary | Summary of Care ---
Author Name Unknown Organization [facility] Address [address] [place] [facility] [place] [address] Phone [phone] Care Team Providers Care Production Roustabout Name Role Phone Mayelin Ritter MD Primary Care Provider [phone] Reason for Referral * Precert (Within 10 days (routine)) - Authorized Specialty Diagnoses / Procedures Referred By Contac t Referred To Contact Cardiac Studies Diagnoses Old HI (myocardial infarction) Procedures ECHO, COMPLETE (2D), TRANS-THORACIC Ricardo Deluna MD [address] [place] [id number] Referral ID Status Reason Start Date Expiration Date V isits Requested Visits Authorized [id number] Authorized Precert 10/27/2023 999 999 Reason for Visit * Reason Comments Follow Up Encounter Details Date Type Department Care Team (Late st Contact Info) Description 10/27/2023 11:00 AM EDT Office Visit [facility], [facility] [address] [place] [id number] Ricardo Deluna MD [address] [place] [id number] Old HI (myocardial infarction)*; BATRES (dyspnea on exertion); Pre-op testing Allergies No known active allergiesdocumented as of this encounter (statuses as of 2023) Medications Medication Sig Dispensed Refills Start Date End Date Status ASPIRIN EC LOW STRENGTH TBEC 81 MG OR take one tablet daily 34 5 03/24/2004 Active nitroglycerin (NITROSTAT) 0.4 MG SUBLIndications:S/P angioplasty with stent 1 Tab under tongue every 5 MIN X 3 for CHEST PAIN 25 Tab 5 12/30/2016 Active Additional Information Patient not taking.Reported on 09/14/2023 [employer] Ultra In Vitro Strip (Glucose Blood)Indications:T ype 2 diabetes mellitus with hemoglobin A1c goal of less than 8.0% (HCC) TEST BLOOD SUGAR THREE TIMES PER DAY [...] Oral Tablet (Norvasc)Indication s:HTN, goal below 140/90,Old HI (myocardial infarction) TAKE 1 TABLET BY MOUTH EVERY DAY 90 Tablet 3 06/09/2023 Active Citalopram Hydrobromide 20 MG Oral Tablet (CeleXA) TAKE 1 TABLET BY MOUTH EVERY DAY 90 Tablet 1 07/01/2023 Active Ezetimibe 10 MG Oral Tablet (Zetia)Indications: HTN, goal below 140/90,Old HI (myocardial infarction) TAKE 1 TABLET BY MOUTH [...] 3 days per week 36 Tablet 11 09/14/2023 Active Losartan Potassium 50 MG Oral Tablet (Cozaar) Take 1 Tablet by mouth in the morning. 90 Tablet 3 09/14/2023 Active documented as of this encounter (statuses as of 2023) Active Problems Problem Noted Date Diagnosed Date Chronic kidney disease, stage 3a 08/23/2023 Overview: Per CKD protocol Facet arthropathy, multilevel 09/28/2022 Atherosclerosis of [place] co ronary artery of [place] heart with stable angina pectoris 02/17/2021 Age-related osteoporosis wit hout current pathological fracture 02/17/2021 Old HI (myocardial infarction) 01/03/2019 Chronic rhinitis 07/16/2015 HTN, [...] as of this encounter (statuses as of 2023) Resolved Problems Problem Noted Date Diagnosed Date [...] as of this encounter (statuses as of 2023) Immunizations Name Administration Dates Next Due COVID-19 mRNA, LNP-s, No Pre serve, 2-Dose Series (ZapHour) 03/12/2021,09/04/2020,08/14/2020 Pneumococcal Conjugate Vacc, 13 Valent (Prevnar) [...] Sign Reading Time Taken Comments Blood Pressure 116/56 10/27/2023 11:13 AM EDT Pulse 56 10/27/2023 11:13 AM EDT Temperature - - Respiratory Rate 16 10/27/2023 11:13 AM EDT Oxygen Saturation - - Inhaled Oxygen Concentration - - Weight 72.6 kg (160 lb) 10/27/2023 11:13 AM EDT Height - - Body Mass Index 28.34 08/17/2023 5:30 PM EDT documented in this encounter Progress Notes * Ricardo Deluna MD - 10/27/2023 11:22 AM EDT October 27, 2023 Cardiology Follow Up Referring Provider: PCP: MAYELIN RITTER [address] [place] [address] Chief Complaint: Follow-up ischemic heart [...] Left bundle-branch block Patient presents today in close clinical followup. Still with intermittent episodes of dyspnea and chest pressure despite change in medical therapies. No sustained episodes. No syncope or near syncope but occasional lightheadedness with standing and movement. Has restricted activity significantly. No fevers chills or unexplained infections. No bleeding difficulties. Taking medications as prescribed. A Complete Review of Systems is as stated above or negative. 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 COLONOSCOPY, DIAGNOSTIC (RECTUM) 09/28/2018 normal/COLONOSCOPY FLEXIBLE PROXIMAL DIAGNOSTIC performed by Jackie Broderick MD at ENDOSCOPY [facility] CORONARY ARTERY DILATION, BALLOON 02/17 PTCA/STENT [facility] REMOVE CATARACT, INSERT LENS PROSTH Right 01/04/2017 right EXTRACAPSULAR CATARACT REMOVAL WITH INTRAOCULAR LENS performed by DO Bruce Lara [facility] Family History Problem Relation Name Age of Onset Heart Disorder Mother 80 years old due to CAD Began in 40's Hypertension Father Neurological Disorder Father cva Heart Disorder Brother AAA due to AAA Heart Disorder Brother due to Cardiac arrthymia @ 44 years old Heart Disorder Sister cabgx4, valve replacement Social History Socioeconomic History Marital status: Spouse name: kate Number of children: 1 Years of education: Not on file Highest education level: Not on file Occupational History Occupation: unemployed Tobacco Use Smoking status: Former Current packs/day: 0.00 Average packs/day: 0.3 packs/day for 20.0 years (5.0 ttl pk-yrs) Types: Cigarettes Start date: 05/26/1975 Quit date: 05/26/1995 Years since quittin.4 Smokeless tobacco: Never Tobacco comments: quit Vaping Use Vaping status: Never Used Substance and Sexual Activity Alcohol use: No Drug use: No Sexual activity: Yes Other Topics Concern Not on file Social History Narrative Not on file Social Determinants of Health Financial Resource Strain: Not on file Food Insecurity: No Food Insecurity (01/03/2019) Hunger Vital Sign Worried About Running Out of Food in the Last Year: Never true Ran Out of Food in the Last Year: Never true Transportation Needs: Not on file Physical Activity: Not on file Stress: Not on file Social Connections: Not on file Intimate Partner Violence: Not on file Housing Stability: Not on file Review of patient's allergies indicates: No Known [...] DAY IN THE MORNING 90 Tablet 3 amLODIPine Besylate 5 MG Oral Tablet (Norvasc) TAKE 1 TABLET BY MOUTH EVERY DAY 90 Tablet 3 Citalopram Hydrobromide 20 MG Oral Tablet (CeleXA) TAKE 1 TABLET BY MOUTH EVERY DAY 90 Tablet 1 Ezetimibe 10 MG Oral Tablet (Zetia) TAKE 1 TABLET BY MOUTH EVERY DAY 90 Tablet 3 glipiZIDE 10 MG Oral Tablet (Glucotrol) TAKE 1 TABLET BY MOUTH TWICE A DAY 30 MINS BEFORE A MEAL 180 Tablet 1 Isosorbide Mononitrate ER 30 MG Oral Tablet Extended Release 24 Hour (Imdur) Take 2 Tablets by mouth in the morning. 180 Tablet 3 hydroCHLOROthiazide 25 MG Oral Tablet (Hydrodiuril) Take one 3 days per week 36 Tablet 11 Losartan Potassium 50 MG Oral Tablet (Cozaar) Take 1 Tablet by mouth in the morning. 90 Tablet 3 nitroglycerin (NITROSTAT) 0.4 MG SUBL 1 Tab under tongue every 5 MIN X 3 for CHEST PAIN (Patient not taking: Reported on 09/14/2023) 25 Tab 5 OneTouch Ultra In Vitro Strip (Glucose Blood) TEST BLOOD SUGAR THREE TIMES PER DAY DIRECTED - UNCONTROLLED DIABETES 300 Strip 3 No current facility-administered medications for this visit. OBJECTIVE/PHYSICAL EXAMINATION: BP 116/56 | Pulse 56 | Resp 16 | Wt 72.6 kg (160 lb) | BMI 28.34 kg/m | BSA 1.8 m General: Thin pale female no acute distress Head: normocephalic, no masses, lesions, tenderness or abnormalities Eyes: conjunctiva are pink and non-injected, sclera clear Throat: clear Nares: without discharge Neck: supple, no adenopathy, right carotid bruit, normal jugular venous pulse, no hepatojugular reflux, [...] cusp along with moderate aortic valve sclerosis. Results for orders placed or performed in visit on 12/10/21 LIPID PANEL WITH DIRECT LDL IF TG IS HIGH Result Value Ref Range Triglycerides 127 <=174 mg/dL Cholesterol 141 <200 mg/dL HDL Cholesterol 47 (L) >49 mg/dL Non-HDL Cholesterol 94 <=159 mg/dL LDL Cholesterol 69 <=129 mg/dL ASSESSMENT: 77 year old year old female Longstanding ischemic heart disease with prior class 2 functional capacity and chronic exertional dyspnea. Now with recent acceleration in symptoms of exertional dyspnea despite medical therapies PLAN: Lab work chest x-ray today Echocardiogram at this visit Scheduled coronary angiography November 02, 2023 [facility] pending review of testingas above DISPOSITION: Return 6 to 8 weeks Ricardo Deluna MD Cardiology, [facility] [address] [facility] [place] [address] documented in this encounter Nursing Notes * Ban Oconnor LPN - 10/27/2023 11:47 AM EDT [facility] CARDIAC CATHETERIZATION INSTRUCTIONS Please arrive at [facility] via the Main Entrance and check in at Outpatient Registration Desk at 0700 (time) on 11/02/2023(date), Ricardo Bates. MD Mikie will perform your cardiac catheterization. Nothing to eat or drink after 10:00PM the night before. No caffeine 24 hours prior to procedure, No tobacco products after midnight DO NOT take METFORMIN for 2 days before your catheterization. (Take last dose on 10/31/2023 at MORNING DOSE, then stop.) DO NOT take the following medications on the morning of your procedure: GLIPIZIDE, HYDROCHLOROTHIAZIDE No over the counter vitamins, Fish oil and/or Vit E the morning of your procedure OK to take the following medications with a sip of water at their usual times: ALL OTHER MEDS Be sure to take (4) 81mg low dose aspirin on the morning of your catheterization. If you take INSULIN or NON-INSULIN INJECTABLES: N/A If you take COUMADIN/BLOOD THINNERS: N/A DO NOT wear any jewelry the day of the procedure. Bring your medications with you in their original containers. It may be necessary for you to take them after your procedure. You will not be allowed to drive, please bring a tow car driver 18 or older to take you home. You will not be permitted to leave via taxi, public transportation/bus or Uber. You will be admitted to a recovery area for rest and observation after your catheterization is complete. Please bring a book or tablet to occupy your time. No televisions are available in the recovery area. Pre-Op Testing [x] LAB [x] RADIOLOGY/CHEST XRAY [x] EKG If you have questions regarding the procedure or questions in the days after the procedure, please do not hesitate to call the office at [phone]. * Ban Oconnor LPN - 10/27/2023 11:12 AM EDT Examination Room: Name: Leyla Catherine Date of : 1945 Reason for Visit: Follow up Problems/Concerns: Still having chest "heaviness" denies chest pain Interim Hosp(s): denies Chest Pain/SOB: C/o SOB - states about the same, not worsening MyChart Discussed: DECLINES Patient was instructed to not get up on the exam table until directed and assisted by their provider; patient is to remain seated in the chair/ wheelchair/ exam table for fall prevention and safety reasons. Patient is aware staff will assist stepping down off exam table with personnel. documented in this encounter Miscellaneous Notes * Result Encounter Note - Ricardo Deluna MD - 10/28/2023 8:48 AM EDT Laboratory studies demonstrate marked hypothyroidism which may reflect a cause for her symptoms. Is patient is still taking levothyroxine? If yes, increase to 100 mcg p.o. q.day documented in this encounter Plan of Treatment Upcoming Encounters Date Type Department Care Team (Late st Contact Info) Description 03/16/2024 1:20 PM EDT Office Visit [address] [place] [id number] Mayelin Ritter MD [address] [facility] [place] [id number] Scheduled Orders Name Type Priority Associated Diagnoses Orde r Schedule CORONARY ANGIOGRAPHY W/LEFT HEART CATH Card Cath Routine Old HI (myocardial infarction) BATRES (dyspnea on exertion) Ordered: 10/27/2023 Health Maintenance Due Date Last Done Comments Zoster Vaccines (1 of 2) 1994 CKD PHOS USE SMARTSET 14379 03/29/2008 03/29/2007, 1 Mammogram 01/07/2021 01/08/2020, 05/2017, 12/14/2016, Additional history exists *BISPHONATE OR OTHER ACCEPTABLE MEDICATION NEEDED FOR OSTEOPOROSIS (REFER TO SMARTSET #1146) 02/19/2021 Depression Screening 08/28/2021 08/28/2020 Diabetic Foot Exam 02/17/2022 02/17/2021, 0 10/04/2019, 08/31/2018, Additional history exists Diabetic Eye Exam 08/05/2022 08/05/2021, , 06/28/2017, Additional history exists DXA Scan 12/16/2022 12/16/2020, 12/2012, 02/21/2013, Additional history exists COVID-19 Vaccine [...] Additional history exists CKD HGB USE SMARTSET 99083 10/26/202410/26, 10/27/2023, 12/10/2021, Additional history exists TSH 10/26/2024 10/27/2023, 07/16, 04/06/2023, Additional history exists Pneumococcal Vaccine: 65+ Years Completed 04/03/2015, 06/23/2010, 10/24/2004 VITAMIN D LEVEL ONCE IN A LIFETIME-USE SMARTSET# [id number] Completed 06/09/2022 GARDASIL-HPV IMMUNIZATION SERIES Aged Out No longer eligible based on patient's age to complete this topic Hepatitis B Aged Out No longer eligi ble based on patient's age to complete this topic MENINGOCOCCAL (MENACTRA/MENVEO) Aged Out No longer eligible based on patient's age to complete this topic documented as of this encounter Medical Devices Implanted Type Area Computer Assistant Device Identifier Shelf Expiration Date Model / Serial / Lot Mx60 24.0d Implanted:Qty: 1 on 11/15/2014 by Mau Angel MD at OR [facility] Eye [employer] 04/17/2017 [id number] / / [id number] Lens 23.5 Mx60 - [id number] - [id number] Implanted:Qty: 1 on 01/04/2017 by Terrence Mccormack DO at OR [facility] Right: Eye [employer] : SURGICAL 05/16/2019 MX60-23.5 / [id number] / [id number] documented as of this encounter Procedures Procedure Name Priority Date/Time Associated Diagnosis Comments XR CHEST 2 VIEWS Routine 10/27/2023 1:43 PM EDT Old HI (myocardial infarction) BATRES (dyspnea on exertion) TSH WITH FREE T4 IF INDICATED Routine 10/27/2023 1:15 PM EDT Old HI (myocardial infarction) BATRES (dyspnea on exertion) T4, FREE Routine 10/27/2023 1:15 PM EDT Old HI (myocardial infarction) BATRES (dyspnea on exertion) documented in this encounter Results * XR CHEST 2 VIEWS (10/27/2023 1:43 PM EDT) Anatomical Region Laterality Modality Chest Computed Radiogr aphy 10/29/2023 5:55 PM EDT Impressions 10/29/2023 5:53 PM EDT IMPRESSION Interstitial opacities, which could represent chronic interstitial lung disease. Recommend CT thorax for better evaluation. Narrative 10/29/2023 5:53 PM EDT EXAM XR CHEST 2 VIEWS - 10/27/2023 1:43 pm HISTORY "Dyspnea, precath" TECHNIQUE Frontal and lateral views of the chest were obtained. COMPARISON 12/08/2021 FINDINGS There are interstitial opacities, stable. No focal consolidation, pleural fluid, or pneumothorax. Normal heart size. Procedure Note Gato Spain MD - 10/29/2023 EXAM XR CHEST 2 VIEWS - 10/27/2023 1:43 pm HISTORY "Dyspnea, precath" TECHNIQUE Frontal and lateral views of the chest were obtained. COMPARISON 12/08/2021 FINDINGS There are interstitial opacities, stable. No focal consolidation, pleuralfluid, or pneumothorax. Normal heart size. IMPRESSION IMPRESSION Interstitial opacities, which could represent chronic interstitial lungdisease. Recommend CT thorax for better evaluation. Ricardo Deluna MD RADIOLOGY (RAD GENER AL) * (ABNORMAL) T4, FREE (10/27/2023 1:15 PM EDT) T4, Free <0.1(L) 0.9 - 1.7 ng/dL 10/27/2023 8:12 PM EDT LABORATORY [facility] Blood Venous blood specimen / Unknown Venipuncture / Unknown 10/27/2023 1:15 PM EDT 10/27/2023 1:15 PM EDT Ricardo Deluna MD LAB BLOOD ORDERABLES LABORATORY [facility] [address] [place] [address] * APTT (10/27/2023 1:15 PM EDT) aPTT 36 21 - 38 seconds 10/27/2023 2:20 PM EDT LAB[facility]ATORY [place] [facility] Blood Venous blood specimen / Unknown Venipuncture / Unknown 10/27/2023 1:15 PM EDT 10/27/2023 1:15 PM EDT Narrative LABORATORY [place] [facility] - 10/27/2023 2:20 PM EDT Anticoagulation may affect testing. Refer to [employer] Test Catalog for a list of effects. Ricardo Deluna MD LAB BLOOD ORDERABLES Performing Organization Address [facility] Co de Phone Number [place] [address] [address] [place] [address] * PT INR (10/27/2023 1:15 PM EDT) Prothrombin Time 13.1 11.6 - 15.2 seconds 10/27/2023 2:19 PM EDT LAB[facility]ATORY [place] [facility] [facility] INR 1.0 0.8 - 1.2 10/27/2023 2:19 PM EDT LAB[facility]ORY [place] [facility] Blood Venous blood specimen / Unknown Venipuncture / Unknown 10/27/2023 1:15 PM EDT 10/27/2023 1:15 PM EDT [facility] LABORATORY [place] [facility] - 10/27/2023 2:19 PM EDT Warfarin Therapy INR: 2.0-3.0 conventional anticoagulation INR: 2.5-3.5 high intensity anticoagulation Ricardo Deluna MD LAB BLOOD ORDERABLES Performing Organization Address City/[facility]/ZIP Co de Phone Number [facility] [address] [place] [address] * (ABNORMAL) TSH WITH FREE T4 IF INDICATED (10/27/2023 1:15 PM EDT) TSH 55.30(H) 0.27 - 4.20 uIU/mL 10/27/2023 7:00 PM EDT LABORATORY [facility] Blood Venous blood specimen / Unknown Venipuncture / Unknown 10/27/2023 1:15 PM EDT 10/27/2023 1:15 PM EDT Ricardo Deluna MD LAB BLOOD ORDERABLES LABORATORY [facility] [address] [place] [address] * (ABNORMAL) COMPREHENSIVE METABOLIC PANEL (10/27/2023 1:15 PM EDT) BUN 22(H) 6 - 20 mg/dL 10/27/2023 2:21 PM EDT LAB[facility]ATORY [place] [facility] Creatinine 1.4(H) 0.5 - 1.0 mg/dL 10/27/2023 2:21 PM EDT [facility] [place] [facility] Estimated Glomerular Filtration Rate 38(L) >=60 mL/min 10/27/2023 2:21 PM EDT LAB[facility] [place] [facility] Comment:eGFR is calculated b ased on the CKD-EPI 2020 equation Sodium 136 135 - 146 mmol/L 10/27/2023 2:21 PM EDT LAB[facility] [place] [facility] Potassium 4.0 3.5 - 5.1 mmol/L 10/27/2023 2:21 PM EDT LAB[facility]ORY [place] [facility] Chloride 97(L) 98 - 107 mmol/L 10/27/2023 2:21 PM EDT [facility] [place] [facility] [facility] CO2 24 22 - 32 mmol/L 10/27/2023 2:21 PM EDT [facility] [place] [facility] Anion Gap 15 7 - 15 mmol/L 10/27/2023 2:21 PM EDT LAB[facility] [place] [facility] Glucose 209(H) 70 - 120 mg/dL 10/27/2023 2:21 PM EDT [facility] [place] [facility] Albumin 4.5 3.8 - 5.0 g/dL 10/27/2023 2:21 PM EDT LAB[facility] [place] [facility] AST 43(H) 10 - 35 U/L 10/27/2023 2:21 PM EDT [facility] [place] [facility] [facility] Alkaline Phosphatase 77 35 - 130 U/L 10/27/2023 2:21 PM EDT LAB[facility] [place] [facility] [facility] Bilirubin, Total 0.4 <=1.2 mg/dL 10/27/2023 2:21 PM EDT LAB[facility]ORY [place] [facility] Calcium 10.0 8.4 - 10.2 mg/dL 10/27/2023 2:21 PM EDT LAB[facility]ORY [place] [facility] [facility] Protein 7.6 6.0 - 8.3 g/dL 10/27/2023 2:21 PM EDT LAB[facility]ATORY [place] [facility] [facility] ALT 25 10 - 35 U/L 10/27/2023 2:21 PM EDT LAB[facility]ORY [place] [facility] Blood Venous blood specimen / Unknown Venipuncture / Unknown 10/27/2023 1:15 PM EDT 10/27/2023 1:15 PM EDT Ricardo Deluna MD LAB BLOOD ORDERABLES Performing Organization Address [facility]/ZIP Co de Phone Number LABORATORY [facility] [address] [place] [address] * EKG (10/27/2023 1:00 PM EDT) 10/27/2023 1:00 PM EDT Narrative Procedure Note Ricardo Deluna MD - 10/27/2023 1:00 PM EDT REASON FOR STUDY: PRE OP CONCLUSIONS: Sinus rhythm with occasional Premature ventricular complexes Possible Left atrial enlargement Left axis deviation Left bundle branch block Abnormal ECG When compared with ECG of 14-Sep-2023 16:09, Premature ventricular complexes are now Present Ventricular Rate: 61 Atrial Rate: 61 MI Interval: 168 QRS Duration: 156 QT/QTc: 496/499 ms P-R-T [place]: 64 : -57 : 100 degrees Ricardo Deluna MD EKG Performing Organization Address City/[facility]/ZIP Co de Phone Number [facility] * ECHO, COMPLETE (2D), TRANS-THORACIC (10/27/2023 12:38 PM EDT) LEFT VENTRICULAR EJECTION FRACTION 40 % [facility] 10/27/2023 11:5 4 AM EDT Ricardo Deluna MD ECHOCARDIOLOGY [facility] documented in this encounter Visit Diagnoses Diagnosis Old HI (myocardial infarction)- Primary Old myocardial infarction BATRES (dyspnea on exertion) Other dyspnea and respiratory abnormality Pre-op testing Preoperative examination, unspecified Old HI (myocardial infarction) Old myocardial infarction BATRES (dyspnea on exertion) Other dyspnea and respiratory abnormality Pre-op testing Preoperative examination, unspecified documented in this encounter Advance Directives Documents on File Type Date Recorded Patient Optical Manufacturing Technician Expl anation Advance Directives and Living Will [...] 5:19 PM 03/30/2007 4:48 PM Care Teams Production Roustabout Relationship Specialty Start Date End Date Mayelin Ritter MD [address] [place] [address] PCP - General 03/04/00 documented as of this encounter
--- OUTSIDE RECORDS SUMMARY | 2023-11-02 07:26 | External Medical Summary ---
Author Name Unknown Address Unknown Organization [id number] [address] [place] [address] Laboratory Report Ordering Provider Test Date Status YOJANA MODI 10/27/2023 13:15:17 Final Observation Date Value Abnormality Reference (Units ) Status SYNC LEUKOCYTES IN BLOOD BY AUTOMATED COUNT 10/27/2023 13:15:17 8.07 4.00-10.80 (K/uL) Final Segs 10/27/2023 13:15:17 69.0 40.0-75.0 (%) Final Lymphs % 10/27/2023 13:15:17 19.0 18.0-42.0 (%) Final Monos 10/27/2023 13:15:17 8.4 1.0-11.0 (%) Final Eosinophils 10/27/2023 13:15:17 2.6 0.0-6.0 (%) Final Basos 10/27/2023 13:15:17 1.0 0.0-2.0 (%) Final Absolute Segs 10/27/2023 13:15:17 5.57 1.80-7.70 (K/uL) Final Lymphs, absolute 10/27/2023 13:15:17 1.53 1.00-4.80 (K/ul) Final Monos, Abs 10/27/2023 13:15:17 0.68 0.00-1.10 (K/uL) Final Eos, Abs 10/27/2023 13:15:17 0.21 0.00-0.70 (K/uL) Final Basos, Abs 10/27/2023 13:15:17 0.08 0.00-0.20 (K/uL) Final Performing Location LABORATORY [facility] [address] - [address] [place] [address]
--- OUTSIDE RECORDS SUMMARY | 2023-11-02 07:26 | External Medical Summary ---
Author Name Unknown Address Unknown Organization [id number]:LABORATORY [place] [address] - [address] [place] [address] Laboratory Report Ordering Provider Test Date Status YOJANA MODI 10/27/2023 13:15:17 Final Anticoagulation may affect t esting. Refer to [facility] Test Catalog for a list of effects. Observation Date Value Abnormality Reference (Units ) Status aPTT panel - Platelet poor plasma 10/27/2023 13:15:17 36 21-38 (seconds) Final Performing Location LABORATORY [place] [address] - [address] [place] [address]
--- OUTSIDE RECORDS SUMMARY | 2023-11-02 07:27 | External Medical Summary ---
Author Name Unknown Address Unknown Organization K01:[facility] [place] [facility] [address] [facility] [address] [facility] [address] Laboratory Report Ordering Provider Test Date Status RIYA DICK 08/10/2023 09:03:19 Final Observation Date Value Abnormality Reference (Units ) Status HbA1C 08/10/2023 09:03:19 6.8 Above high normal 4. 0-5.6 (%) Final The use of HbA1c to monitor glycemic status is based on normal hemoglobin and HbA composition. This test should not be used in patients with abnormal hemoglobin that affects the half life of the red blood cell or the in vivo glycation rates. Glucose, estimated average 08/10/2023 09:03:19 148 Above high normal <126 (mg/dL) Eduardo al Performing Location [facility] [place] [facility] [address] [facility] [address] [facility] [id number]
--- OUTSIDE RECORDS SUMMARY | 2023-11-02 07:27 | External Medical Summary | Summary of Care ---
Author Name Unknown Organization [facility] Address [address] [place] [address] Phone [phone] Care Team Providers Care Campaign Director Name Role Phone Viktor Mcdonald MD Primary Care Provider [phone] Reason for Visit * Reason Comments eRx-Medication Refill Encounter Details Date Type Department Care Team (Late st Contact Info) Description 06/30/[address] [facility] [address] [place] [address] SeptemberGerson MD [address] [place] [address] Allergies No known active allergiesdocumented as of this encounter (statuses as of 07/01/2023) Medications Medication Sig Dispensed Refills Start Date End Date Status ASPIRIN EC LOW STRENGTH TBEC 81 MG OR take one tablet daily 34 5 4 Active nitroglycerin (NITROSTAT) 0.4 MG SUBLIndications:S /P angioplasty with stent 1 Tab under tongue every 5 MIN X 3 for CHEST PAIN 25 Tab 5 7 Active Additional Information Patient not taking.Reported on 09/22/2022 Tradjenta 5 MG Oral Tablet (linaGLIPtin) TAKE 1 TABLET BY MOUTH EVERY DAY 90 Tablet 2 2 Active OneTouch Ultra In Vitro Strip (Glucose Blood)Indications :Type 2 diabetes mellitus with hemoglobin A1c goal of less than 8.0% ([facility]) TEST BLOOD SUGAR THREE TIMES PER DAY DIRECTED - UNCONTROLLED DIABETES 300 Strip 3 3 Active metFORMIN HCl 850 MG Oral Tablet (Glucophage)Indic ations:Type 2 diabetes mellitus with hemoglobin A1c goal of less than 8.0% (HCC) TAKE 1 TABLET BY MOUTH THREE TIMES A DAY WITH MEALS 300 Tablet 3 3 Active glipiZIDE 10 MG Oral Tablet (Glucotrol) TAKE 1 TABLET BY MOUTH TWICE A DAY 30 MINS BEFORE A MEAL 180 Tablet 1 3 Active B-12 1000 MCG Oral TabletIndications :Low serum vitamin B12 Take 1 tab by mouth daily. 0 3 Active Levothyroxine Sodium 88 MCG Oral Tablet (Levoxyl)Indicati ons:Hypothyroidis m, unspecified type Take 1 Tablet by mouth in the morning. (at least 30 min prior to breakfast or other meds). 90 Tablet 3 3 Active Pravastatin Sodium 80 MG Oral TabletIndications :Dyslipidemia, goal LDL below 70 TAKE 1 TABLET BY MOUTH EVERY DAY 90 Tablet 3 4 Active Metoprolol Succinate ER 25 MG Oral Tablet Extended Release 24 Hour (toPROL XL)Indications:HT N, goal below 140/90 TAKE 1 TABLET BY MOUTH EVERY DAY IN THE MORNING 90 Tablet 3 4 Active Losartan Potassium 50 MG Oral Tablet (Cozaar) TAKE 1 TABLET BY MOUTH TWICE A DAY 180 Tablet 2 4 Active amLODIPine Besylate 5 MG Oral Tablet (Norvasc)Indicati ons:HTN, goal below 140/90,Old [place] (myocardial infarction) TAKE 1 TABLET BY MOUTH EVERY DAY 90 Tablet 3 4 Active Citalopram Hydrobromide 20 MG Oral Tablet (CeleXA) TAKE 1 TABLET BY MOUTH EVERY DAY 90 Tablet 1 4 Active Ezetimibe 10 MG Oral Tablet (Zetia)Indication s:HTN, goal below 140/90,Old [place] (myocardial infarction) TAKE 1 TABLET BY MOUTH EVERY DAY 90 Tablet 3 4 Active Isosorbide Mononitrate ER 30 MG Oral Tablet Extended Release 24 Hour (Imdur)Indication s:HTN, goal below 140/90 TAKE 1 TABLET BY MOUTH EVERY DAY IN THE MORNING 90 Tablet 3 4 Active Citalopram Hydrobromide 20 MG Oral Tablet (CeleXA) TAKE 1 TABLET BY MOUTH EVERY DAY 90 Tablet 1 3 07/01/19 24 Discontinued documented as of this encounter (statuses as of 07/01/2023) Active Problems Problem Noted Date Diagnosed Date Facet arthropathy, multilevel 09/28/2022 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 02/17/2021 Age-related osteoporosis wit hout current pathological fracture 02/17/2021 Old [place] (myocardial infarction) 01/03/2019 Chronic rhinitis 07/16/2015 HTN, [...] as of this encounter (statuses as of 07/01/2023) Resolved Problems Problem Noted Date Diagnosed Date [...] as of this encounter (statuses as of 07/01/2023) Immunizations Name Administration Dates Next Due COVID-19 mRNA, LNP-s, No Pre serve, 2-Dose Series (Pfizer) 03/12/2021,09/04/2020,08/14/2020 Pneumococcal Conjugate Vacc, 13 Valent (Prevnar) [...] Date Smoking Tobacco: Former Cigarettes 0.3 20 Q uit: 05/26/1995 Smokeless Tobacco: Never Comments:quit Alcohol Use [...] on file documented as of this encounter Miscellaneous Notes * Telephone Encounter - Quiana Mcwilliams [facility] - 07/01/2023 8:18 AM ESTSigned Prescriptions: Disp Refills Citalopram Hydrobromide 20 MG Oral Tablet *90 Tab*1 Sig: TAKE 1 TABLET BY MOUTH EVERY DAYAuthorizing Provider: GERSON MORALES User: QUIANA MCWILLIAMS---- documented in this encounter Plan of Treatment Upcoming Encounters Date Type Department Care Team (Late st Contact Info) Description 08/17/2023 5:40 PM EDT Office Visit [facility] [address] [place] [address] Viktor Mcdonald MD [address] [place] [address] Health Maintenance Due Date Last Done Comments Zoster Vaccines (1 of 2) 1994 Hepatitis B (1 of 3 - Risk 3-dose series) 2004 Mammogram 01/07/2021 01/08/2020, 08/0 05/2017, 12/14/2016, Additional history exists *BISPHONATE OR OTHER ACCEPTABLE MEDICATION NEEDED FOR OSTEOPOROSIS (REFER TO SMARTSET #1146) 02/19/2021 Depression Screening 08/28/2021 08/28/2020 Diabetic Foot Exam 02/17/2022 02/17/2021, 0 10/04/2019, 08/31/2018, Additional history exists Diabetic Eye Exam 08/05/2022 08/05/2021, , 06/28/2017, Additional history exists DXA Scan 12/16/2022 12/16/2020, 12/2012, 02/21/2013, Additional history exists COVID-19 Vaccine ( season) 2023 03/12/2021, 09/04/2020, 08/14/2020 Influenza Vaccine (FLU shot) (#1) 2023 02/23/2022, 03/27/2021, 03/13/2020, Additional history exists HbA1c 10/05/2023 04/06/2023, 05/18, 12/10/2021, Additional history exists DTaP,Tdap,and Td Vaccines (2 - Td or Tdap) 11/08/2023 11/07/2013, 10/24/2003 Albumin/Creatinine Ratio 03/22/2024 023, 08/05/2021, 08/20/2020, Additional history exists B-12 04/06/2024 04/06/2023, 05/18, 02/13/2021, Additional history exists GFR 04/06/2024 04/06/2023, 05/18, 12/10/2021, Additional history exists TSH 04/06/2024 04/06/2023, 05/18, 12/10/2021, Additional history exists Pneumococcal Vaccine: 65+ Years Completed 04/03/2015, 06/23/2010, 10/24/2004 VITAMIN D LEVEL ONCE IN A LIFETIME-USE SMARTSET# [id number] Completed 06/09/2022 GARDASIL-HPV IMMUNIZATION SERIES Aged Out No longer eligible based on patient's age to complete this topic MENINGOCOCCAL (MENACTRA/MENVEO) Aged Out No longer eligible based on patient's age to complete this topic documented as of this encounter Medical Devices Implanted Type Area Shader And Toner Device Identifier Shelf Expiration Date Model / Serial / Lot Mx60 24.0d Implanted:Qty: 1 on 11/15/2014 by Mau Angel MD at [facility] Eye [employer] 04/17/2017 [id number] / [id number] Lens 23.5 Mx60 - [id number] Implanted:Qty: 1 on 01/04/2017 by Terrence Mccormack DO at OR [facility] Right: Eye [employer] : SURGICAL 05/16/2019 MX60-23.5 / [id number] / [id number] documented as of this encounter Advance Directives Documents on File Type Date Recorded Patient Slope Tender Expl anation Advance Directives and Living Will [...] 5:19 PM 03/30/2007 4:48 PM Care Teams Campaign Director Relationship Specialty Start Date End Date Viktor Mcdonald MD [address] [place] [address] PCP - General 03/04/00 documented as of this encounter
--- OUTSIDE RECORDS SUMMARY | 2023-11-02 07:27 | External Medical Summary | Summary of Care ---
Author Name Unknown Organization [facility] Address [address] [place] [address] Phone [phone] Care Team Providers Care Career Professional Name Role Phone Viktor Mcdonald MD Primary Care Provider [phone] Reason for Visit * Reason Comments Status Check Return in 4 months Encounter Details Date Type Department Care Team (Late st Contact Info) Description 08/17/2023 5:40 PM EDT Office Visit [facility] [address] [place] [address] Viktor Mcdonald MD [address], [place] [phone] Type 2 diabetes mellitus with hemoglobin A1c goal of less than 8.0% (FORMERLY [facility])*; Risk and functional assessment; Acquired hypothyroidism; ASCVD; Thoracic spine pain; Right-sided low back pain with right-sided sciatica, unspecified chronicity; DYSLIPIDEMIA, GOAL LDL BELOW 70; HTN, goal below 140/90; Gastroesophageal reflux disease without esophagitis Allergies No known active allergiesdocumented as of this encounter (statuses as of 08/30/2023) Medications Medication Sig Dispensed Refills Start Date End Date Status ASPIRIN EC LOW STRENGTH TBEC 81 MG OR take one tablet daily 34 5 4 Active nitroglycerin (NITROSTAT) 0.4 MG SUBLIndications:S /P angioplasty with stent 1 Tab under tongue every 5 MIN X 3 for CHEST PAIN 25 Tab 5 7 Active Tradjenta 5 MG Oral Tablet (linaGLIPtin) [...] 3 3 Active B-12 1000 MCG Oral TabletIndications [...] Oral Tablet (Norvasc)Indicati ons:HTN, goal below 140/90,Old SC (myocardial infarction) TAKE 1 TABLET BY MOUTH EVERY DAY 90 Tablet 3 4 Active Citalopram Hydrobromide 20 MG Oral Tablet (CeleXA) TAKE 1 TABLET BY MOUTH EVERY DAY 90 Tablet 1 4 Active Ezetimibe 10 MG Oral Tablet (Zetia)Indication s:HTN, goal below 140/90,Old SC (myocardial infarction) TAKE 1 TABLET BY MOUTH EVERY DAY 90 Tablet 3 4 Active Isosorbide Mononitrate ER 30 MG Oral Tablet Extended Release 24 Hour (Imdur)Indication s:HTN, goal below 140/90 TAKE 1 TABLET BY MOUTH EVERY DAY IN THE MORNING 90 Tablet 3 4 Active glipiZIDE 10 MG Oral Tablet (Glucotrol) TAKE 1 TABLET BY MOUTH TWICE A DAY 30 MINS BEFORE A MEAL 180 Tablet 1 3 08/26/19 24 Discontinued documented as of this encounter (statuses as of 08/30/2023) Active Problems Problem Noted Date Diagnosed Date Chronic kidney disease, stage 3a 08/23/2023 Overview: Per CKD protocol Facet arthropathy, multilevel 09/28/2022 Atherosclerosis of [place] co ronary artery of [place] heart with stable angina pectoris 02/17/2021 Age-related osteoporosis wit hout current pathological fracture 02/17/2021 Old SC (myocardial infarction) 01/03/2019 Chronic rhinitis 07/16/2015 HTN, [...] as of this encounter (statuses as of 08/30/2023) Resolved Problems Problem Noted Date Diagnosed Date [...] as of this encounter (statuses as of 08/30/2023) Immunizations Name Administration Dates Next Due COVID-19 mRNA, LNP-s, No Pre serve, 2-Dose Series ([employer]) 03/12/2021,09/04/2020,08/14/2020 Pneumococcal Conjugate Vacc, 13 Valent (Prevnar) [...] Sign Reading Time Taken Comments Blood Pressure 128/62 08/17/2023 5:30 PM EDT Pulse 62 08/17/2023 5:30 PM EDT Temperature 36.2 C (97.1 F) 08/17/2023 5:30 PM ED T Respiratory Rate 18 08/17/2023 5:30 PM EDT Oxygen Saturation 96% 08/17/2023 5:30 PM EDT Inhaled Oxygen Concentration - - Weight 69.9 kg (154 lb) 08/17/2023 5:30 PM EDT Height 160 cm (5' 3") 08/17/2023 5:30 PM EDT Body Mass Index 27.28 08/17/2023 5:30 PM EDT documented in this encounter Patient Instructions * Patient Instructions* Sharri Mayo LPN - 08/17/2023 5:30 PM EDT Patient Instructions - Fall Prevention (This education is for all patients over 65 regardless of symptoms) Remember to take your current medications as prescribed. In order to prevent falls, you are encouraged to: Exercise Utilize assistive/adaptive devices Avoid multifocal lenses when walking Avoid hazards in home Maintain a regular toileting schedule Any questions please contact our office. Preventing Falls in the Home (This education is for all patients over 65 regardless of symptoms) As you get older, falls are more likely. Thats because your reaction time slows. Your muscles and joints may also get stiffer, making them less flexible. Illness, medications, and vision changes can also affect your balance. A fall could leave you unable to live on your own. To make your home safer, follow these tips: Floors Put nonskid pads under area rugs Remove throw rugs Replace worn floor coverings Tack carpets firmly to each step on carpeted stairs. Put nonskid strips on the edges of uncarpeted stairs Keep floors and stairs free of clutter and cords Arrange furniture so there are clear pathways Clean up any spills right away Bathrooms Install grab bars in the tub or shower Apply nonskid strips or put a nonskid rubber mat in the tub or shower Sit on a bath chair to bathe Use bathmats with nonskid backing Lighting Keep a flashlight in each room Put a nightlight along the pathway between the bedroom and the bathroom [employer] Patient Education Copyright 2008 - 2010 [employer] except where otherwise noted Preventing Falls: Exercises to Improve Balance, Flexibility, Strength, and Staying Power (This education is for all patients over 65 regardless of symptoms) Certain types of exercises may help make you less likely to fall. Try the ones below. Or do other exercises that your healthcare provider suggests. Depending on your health, you may need to start slowly. Dont let that stop you. Even small amounts of exercise can help you. Be sure to talk to yourhealthcare provider before starting any exercise program. Improve Balance Many types of exercise can help improve balance. Reji chi and yoga are good examples. Heres another one to try. You can do it anytime and almost anywhere. Stand next to a counter or solid support. Push yourself up onto your tiptoes. Hold for 5 seconds. If you start to lose your balance, hold on to the counter. Rest and repeat 5 times. Work up to holding for 20 to 30 seconds, if you can. Increase Flexibility Being more flexible makes it easier for you to move around safely. Try exercises like the seated hamstring stretch. Sit in a chair and put one foot on a stool. Straighten your leg and reach with both hands down either side of your leg. Reach as far down your leg as you can. Hold for about 20 seconds. Go back to the starting position. Then repeat 5 times. Switch legs. Build Strength Resistance exercises help build strength. You can do them without equipment. Or you can use weights, elastic bands, or special machines. One such exercise is called the biceps curl. You can hold a 1 pound weight or even a can of soup. Do this exercise at least 3 times a week. Strive for everyday. Sit up straight in a chair. Keep your elbow close to your body and your wrist straight. Bend your arm, moving your hand up to your shoulder. Then slowly lower your arm. Repeat 5 times. Switch to the other arm. Build Your Staying Power Aerobic exercises make your heart and lungs stronger so you can keep moving longer. Walking and swimming are two of the best types of exercises you can do. Using a stationary bike is great, too. Find an aerobic exercise that you enjoy. Start slowly and build up. Even 5 minutes is helpful. Aimfor a goal of 30 minutes, at least 3 times a week. You dont have to do 30 minutes in one session. Break it up and walk a little throughout the day. More Helpful Tips Start easy. Slowly work up to doing more. Talk with your healthcare provider about the best exercises for you. Call senior centers or health clubs about exercise programs. If needed, have a family member watch you walk every so often to check your stability. Exercise with a friend. Choose an activity you both enjoy. Try exercises that you can do anytime, anywhere. Here are two examples. Have someone with you when you first try these: Practice walking by placing one foot right in front of the other. Stand up and sit down 10 times. Repeat this throughout the day. [employer] Patient Education Copyright 2009 - 2010 [employer] except where otherwise noted. Preventing Falls: Moving Safely Using a Cane or Walker (This education is for all patients over 65 regardless of symptoms) Keep the cane away from your feet so you dont trip. A walking aid, such as a cane or walker, can help you stay more independent and avoid falls. Remember to keep your walking aid within easy reach when youre in a chair or in bed. And learn how to use it safely so you dont injure yourself. Using a Cane If you have a stronger side, hold the cane on that side. Get your balance. Move the cane and your weaker leg forward. Support your weight on both the cane and your weaker side. Step with your stronger leg. Start again from step 1. If youre using a folding walker, be sure you know how to lock it open. Check that its locked open before each use. Using a Walker Roll the walker (or lift it, if youre using one without wheels) forward about 12 inches. Step forward with your weaker leg first. Use the walker to help keep your balance. Bring your other foot forward to the center of the walker. Start again from step 1. Helpful Tips Check with your healthcare provider about the right walking aid to use. Ask about a walker with a seat attached. Check the tips of your cane or walker to make sure they have nonskid covers. Move slowly from room to room. Dont wilder. Sit down to get dressed. Use a jah pack or backpack to keep your hands free. Get help for jobs that mean climbing, even on a stepstool. [employer] Patient Education Copyright 2008 - 2010 [employer] except where otherwise noted. Urinary Incontinence Plan of Care Documentation: (This education is for all patients over 65 regardless of symptoms) Current medications reconciled. Patient encouraged to: Practice kegal exercises Provide education materials Use the restroom every 2 hours throughout the day Limit caffeine, alcohol, spicy foods and acidic foods Keep a bladder diary Limit fluid intake 3-4 hours before bed Lose weight Prevent constipation Take fluid pills at a time when you can get to the bathroom quickly Control sugar better if diabetic Limit fluid intake to 60 oz. per day Wear support stockings (TEDs)if you have edema Sharri Mayo LPN 08/17/2023 Kegel Exercises Kegel exercises dont require special clothing or equipment. Theyre easy to learn and simple to do. And if you do them right, no one can tell youre doing them, so they can be done almost anywhere. Your doctor, nurse, or physical therapist can answer any questions you have and help you get started. A Weak Pelvic Floor The pelvic floor muscles may weaken due to aging, and vaginal childbirth, injury, surgery, chronic cough, or lack of exercise. If the pelvic floor is weak, your bladder and other pelvic organs may sag out of place. The urethra may also open too easily and allow urine to leak out. Kegel exercises can help you strengthen your pelvic floor muscles so they can better support the pelvic organs and control urine flow. How Kegel Exercises Are Done Try each of the Kegel exercises described below. When youre doing them, try not to move your leg, buttock, or stomach muscles. While youre urinating, try to stop the flow of urine. Start and stop it as often as you can. Contract as if you were stopping your urine stream, but do it when youre not urinating. Tighten your rectum as if trying not to pass gas. Contract your anus, but dont move your buttocks. Helpful Hints Do your Kegels as often as you can. The more you do them, the faster youll feel the results. Pick an activity you do often as a reminder. For instance, do your Kegels every time you sit down. Tighten your pelvic floor before you sneeze, get up from a chair, cough, laugh, or lift. This protects your pelvic floor from injury and can help prevent urine leakage. Try to hold each Kegel for a slow count to five. You probably wont be able to hold them for thatlong at first, but keep practicing. It will get easier as your pelvic floor gets stronger. Eventually, special weights that you place in your vagina may be recommended to help make your Kegels even more effective. [employer] Patient Education Copyright 2008 - 2010 [employer] except where otherwise noted. Here are some helpful tips for your urinary incontinence: (This education is for all patients over 65 regardless of symptoms) Practice Kegel exercises Use the restroom every 2 hours throughout the day Limit caffeine, alcohol, spicy foods, and acidic foods Keep a bladder diary Limit fluid intake 3-4 hours before bed Lose weight Prevent constipation Take fluid pills at a time when can get to the bathroom quickly Control sugar better if diabetic Limit fluid intake to 60 oz. per day Any questions, please feel free to contact our office. documented in this encounter Progress Notes * Viktor Mcdonald MD - 08/17/2023 5:47 PM EDT Subjective: Leyla Catherine is a 77 year old female here today for Chief Complaint Patient presents with Status Check Return in 4 months Back pain - goes below the knee No numbness Some weakness both sides Past Medical History: Diagnosis Date ASCVD (arteriosclerotic cardiovascular disease) SC 98 anteroseptal DM type 2, goal A1C below 8.0 06/23/2013 HTN, goal below 140/90 Hypothyroidism Past Surgical History: Procedure Laterality Date BREAST LESION,OTHER,EXCISION left breast x 2. COLONOSCOPY, DIAGNOSTIC (RECTUM) 09/28/2018 normal/COLONOSCOPY FLEXIBLE PROXIMAL DIAGNOSTIC performed by Jackie Broderick MD at ENDOSCOPY [facility] CORONARY ARTERY DILATION, BALLOON 02/17 PTCA/STENT [facility] REMOVE CATARACT, INSERT LENS PROSTH Right 01/04/2017 right EXTRACAPSULAR CATARACT REMOVAL WITH INTRAOCULAR LENS performed by DO Bruce Lara [facility] Review of patient's allergies indicates: No Known Allergies Current Outpatient Medications Medication Sig Dispense Refill ASPIRIN EC LOW STRENGTH TBEC 81 MG OR take one tablet daily 34 5 nitroglycerin (NITROSTAT) 0.4 MG SUBL 1 Tab under tongue every 5 MIN X 3 for CHEST PAIN 25 Tab 5 Tradjenta 5 MG Oral Tablet (linaGLIPtin) TAKE 1 TABLET BY MOUTH EVERY DAY 90 Tablet 2 Tag'ByToAccelergy Ultra In Vitro Strip (Glucose Blood) TEST BLOOD SUGAR THREE TIMES PER DAY DIRECTED - UNCONTROLLED DIABETES 300 Strip 3 metFORMIN HCl 850 MG Oral Tablet (Glucophage) [...] MINS BEFORE A MEAL 180 Tablet 1 No current facility-administered medications for this visit. Objective: BP 128/62 | Pulse 62 | Temp 36.2 C (97.1 F) (Temporal Artery) | Resp 18 | Ht 1.6 m (5' 3") | Wt 69.9 kg (154 lb) | SpO2 96% | BMI 27.28 kg/m | BSA 1.76 m GEN: NAD HEENT: Benign NECK: Supple with no LAD, TM, JVD CHEST: CTA B CV: RRR ABD: Soft, NT/ND, No HSM, NABS EXT: No c,c,e Assessment and Plan: Type 2 diabetes mellitus with hemoglobin A1c goal of less than 8.0% (HCC) (Primary) Risk and functional assessment Acquired hypothyroidism ASCVD Thoracic spine pain - XR T SPINE AP AND LATERAL; Future; Expected date: 08/17/2023 Right-sided low back pain with right-sided sciatica, unspecified chronicity - XR L SPINE AP AND LATERAL; Future; Expected date: 08/17/2023 DYSLIPIDEMIA, GOAL LDL BELOW 70 HTN, goal below 140/90 Gastroesophageal reflux disease without esophagitis Follow Up: Return in about 6 months (around 02/16/2024) for recheck. | For: recheck 26 min with pt and chart review Viktor Mcdonald MD documented in this encounter Nursing Notes * Sharri Mayo LPN - 08/17/2023 5:30 PM EDT The patient has been properly identified by confirmation of name and date of . Chief Complaint Patient presents with Status Check Return in 4 months documented in this encounter Plan of Treatment Upcoming Encounters Date Type Department Care Team (Late st Contact Info) Description 09/14/2023 4:00 PM EDT Office Visit Cardiology, [facility] [address] [id number] Ricardo Deluna MD [address] [address] 03/16/2024 1:20 PM EDT Office Visit [address] [place] [address] Viktor Mcdonald MD [address] [id number] Health Maintenance Due Date Last Done Comments Zoster Vaccines (1 of 2) 1994 CKD PHOS USE SMARTSET 87652 03/29/2008 03/29/2007, 1 Mammogram 01/07/2021 01/08/2020, 05/2017, 12/14/2016, Additional history exists *BISPHONATE OR OTHER ACCEPTABLE MEDICATION NEEDED FOR OSTEOPOROSIS (REFER TO SMARTSET #1146) 02/19/2021 Depression Screening 08/28/2021 08/28/2020 Diabetic Foot Exam 02/17/2022 02/17/2021, 0 10/04/2019, 08/31/2018, Additional history exists Diabetic Eye Exam 08/05/2022 08/05/2021, , 06/28/2017, Additional history exists CKD HGB USE SMARTSET 97788 12/10/202212/10, 12/10/2021, 04/27/2018, Additional history exists DXA Scan 12/16/2022 12/16/2020, 12/2012, 02/21/2013, Additional history exists COVID-19 Vaccine ( - season) 2023 03/12/2021, 09/04/2020, 08/14/2020 DTaP,Tdap,and Td [...] D LEVEL ONCE IN A LIFETIME-USE SMARTSET# [id number] Completed 06/09/2022 GARDASIL-HPV IMMUNIZATION SERIES Aged Out No longer eligible based on patient's age to complete this topic Hepatitis B Aged Out No longer eligi ble based on patient's age to complete this topic MENINGOCOCCAL (MENACTRA/MENVEO) Aged Out No longer eligible based on patient's age to complete this topic documented as of this encounter Medical Devices Implanted Type Area Shoe Worker Device Identifier Shelf Expiration Date Model / Serial / Lot Mx60 24.0d Implanted:Qty: 1 on 11/15/2014 by Mau Angel MD at OR [facility] Eye [employer] 04/17/2017 [id number] / / [id number] Lens 23.5 Mx60 - [id number] - [id number] Implanted:Qty: 1 on 01/04/2017 by Terrence Mccormack DO at OR [facility] Right: Eye [employer] : SURGICAL 05/16/2019 MX60-23.5 / [id number] / [id number] documented as of this encounter Results * XR T SPINE AP AND LATERAL (08/19/2023 1:33 PM EDT) Anatomical Region Laterality Modality Vertebra, Spine, Tspine Computed Radiography 08/24/2023 10:3 3 AM EDT Impressions 08/24/2023 10:30 AM EDT IMPRESSION Degenerative findings as above. Narrative 08/24/2023 10:30 AM EDT EXAM XR T SPINE AP AND LATERAL; XR L SPINE AP AND LATERAL- 08/19/2023 1:33 pm HISTORY Provided clinical history: "thoracic spine pain; lumbar pain" TECHNIQUE Three views of the thoracic spine and three views of the lumbar spine were obtained. COMPARISON Lumbar spine radiographs dated February 18, 2021. FINDINGS Thoracic spine: Mild thoracic dextroscoliosis. No significant spondylolisthesis or vertebral body height loss. Multilevel intervertebral disc degeneration, moderate at T11-12. No acute fracture or aggressive bone lesion. Cardiomediastinal silhouette is normal in size and contour, with coronary artery stents versus calcifications noted. Visualized lungs are clear. Lumbar spine: Five lumbar-type vertebral bodies. Mild lumbar levoscoliosis. Grade 1 anterolisthesis of L4 on L5. There is also mild retrolisthesis of L2 on L3. Mild multilevel intervertebral disc degeneration. Multilevel facet osteoarthritis, greatest near the lumbosacral junction. No acute fracture or aggressive bone lesion. [id number] bilateral sacroiliac osteoarthritis. Atherosclerotic calcifications. Procedure Note Bigger, Deven Lowery MD - 08/24/2023 EXAM XR T SPINE AP AND LATERAL; XR L SPINE AP AND LATERAL- 08/19/2023 1:33 pm HISTORY Provided clinical history: "thoracic spine pain; lumbar pain" TECHNIQUE Three views of the thoracic spine and three views of the lumbar spine wereobtained. COMPARISON Lumbar spine radiographs dated February 18, 2021. FINDINGS Thoracic spine: Mild thoracic dextroscoliosis. No significant spondylolisthesis orvertebral body height loss. Multilevel intervertebral disc degeneration,moderate at T11-12. No acute fracture or aggressive bone lesion.Cardiomediastinal silhouette is normal in size and contour, with coronaryartery stents versus calcifications noted. Visualized lungs are clear. Lumbar spine: Five lumbar-type vertebral bodies. Mild lumbar levoscoliosis. Grade 1anterolisthesis of L4 on L5. There is also mild retrolisthesis of L2 onL3. Mild multilevel intervertebral disc degeneration. Multilevel facetosteoarthritis, greatest near the lumbosacral junction. No acute fractureor aggressive bone lesion. Rtqt-[id number] bilateral sacroiliacosteoarthritis. Atherosclerotic calcifications. IMPRESSION IMPRESSION Degenerative findings as above. Viktor Mcdonald MD RADIOLOGY (RAD GEN ERAL) * XR L SPINE AP AND LATERAL (08/19/2023 1:33 PM EDT) Anatomical Region Laterality Modality Vertebra, Lspine Computed Radiog kleber 08/24/2023 10:3 3 AM EDT Impressions 08/24/2023 10:30 AM EDT IMPRESSION Degenerative findings as above. Narrative 08/24/2023 10:30 AM EDT EXAM XR T SPINE AP AND LATERAL; XR L SPINE AP AND LATERAL- 08/19/2023 1:33 pm HISTORY Provided clinical history: "thoracic spine pain; lumbar pain" TECHNIQUE Three views of the thoracic spine and three views of the lumbar spine were obtained. COMPARISON Lumbar spine radiographs dated February 18, 2021. FINDINGS Thoracic spine: Mild thoracic dextroscoliosis. No significant spondylolisthesis or vertebral body height loss. Multilevel intervertebral disc degeneration, moderate at T11-12. No acute fracture or aggressive bone lesion. Cardiomediastinal silhouette is normal in size and contour, with coronary artery stents versus calcifications noted. Visualized lungs are clear. Lumbar spine: Five lumbar-type vertebral bodies. Mild lumbar levoscoliosis. Grade 1 anterolisthesis of L4 on L5. There is also mild retrolisthesis of L2 on L3. Mild multilevel intervertebral disc degeneration. Multilevel facet osteoarthritis, greatest near the lumbosacral junction. No acute fracture or aggressive bone lesion. Oxsw-[id number] bilateral sacroiliac osteoarthritis. Atherosclerotic calcifications. Procedure Note Bigger, Deven Lowery MD - 08/24/2023 EXAM XR T SPINE AP AND LATERAL; XR L SPINE AP AND LATERAL- 08/19/2023 1:33 pm HISTORY Provided clinical history: "thoracic spine pain; lumbar pain" TECHNIQUE Three views of the thoracic spine and three views of the lumbar spine wereobtained. COMPARISON Lumbar spine radiographs dated February 18, 2021. FINDINGS Thoracic spine: Mild thoracic dextroscoliosis. No significant spondylolisthesis orvertebral body height loss. Multilevel intervertebral disc degeneration,moderate at T11-12. No acute fracture or aggressive bone lesion.Cardiomediastinal silhouette is normal in size and contour, with coronaryartery stents versus calcifications noted. Visualized lungs are clear. Lumbar spine: Five lumbar-type vertebral bodies. Mild lumbar levoscoliosis. Grade 1anterolisthesis of L4 on L5. There is also mild retrolisthesis of L2 onL3. Mild multilevel intervertebral disc degeneration. Multilevel facetosteoarthritis, greatest near the lumbosacral junction. No acute fractureor aggressive bone lesion. Lchl-[id number]-rvywftsb bilateral sacroiliacosteoarthritis. Atherosclerotic calcifications. IMPRESSION IMPRESSION Degenerative findings as above. Viktor Mcdonald MD RADIOLOGY (RAD GEN ERAL) documented in this encounter Visit Diagnoses Diagnosis Type 2 diabetes mellitus with hemoglobin A1c goal of less than 8.0% ([facility]LY [facility])- Primary Risk and functional assessment Screening for unspecified condition Acquired hypothyroidism Unspecified hypothyroidism ASCVD Unspecified cardiovascular disease Thoracic spine pain Pain in thoracic spine Right-sided low back pain with right-sided sciatica, unspecified chronicity DYSLIPIDEMIA, GOAL LDL BELOW 70 Other and unspecified hyperlipidemia HTN, goal below 140/90 Unspecified essential hypertension Gastroesophageal reflux disease without esophagitis Esophageal reflux Right-sided low back pain with right-sided sciatica, unspecified chronicity Thoracic spine pain Pain in thoracic spine documented in this encounter Advance Directives Documents on File Type Date Recorded Patient Bilingual Sales Representative Expl anation Advance Directives and Living Will [...] 5:19 PM 03/30/2007 4:48 PM Care Teams Career Professional Relationship Specialty Start Date End Date Viktor Mcdonald MD [address] [place] [address] PCP - General 03/04/00 documented as of this encounter
--- OUTSIDE RECORDS SUMMARY | 2023-11-02 07:27 | External Medical Summary ---
Author Name Unknown Address Unknown Organization [id number]:[facility] [place] [address] [place] [address] Laboratory Report Ordering Provider Test Date Status RIYA DICK 08/10/2023 09:03:19 Final Observation Date Value Abnormality Reference (Units ) Status Vitamin B12 08/10/2023 09:03:19 [phone] (pg/mL) Final Performing Location [facility] [place] [address] [place] [address]
--- OUTSIDE RECORDS SUMMARY | 2023-11-02 07:27 | External Medical Summary ---
Author Name Unknown Address Unknown Organization [id number][place] [place] [facility] [place] [address] [facility] [facility] [address] [place] [address] Laboratory Report Ordering Provider Test Date Status REGGIE DICKISH 08/10/2023 09:03:19 Final Observation Date Value Abnormality Reference (Units ) Status BUN 08/10/2023 09:03:19 20 6-20 (mg/dL) Final Creatinine 08/10/2023 09:03:19 1.1 Above high normal 0.5-1.0 (mg/dL) Final Glomerular filtration rate/1.73 sq M.predicted [Volume Rate/Area] in Serum, Plasma or Blood by Creatinine-based formula (CKD-EPI) 08/10/2023 09:03:19 51 Below low normal >=60 (mL/min) Final eGFR is calculated based on the CKD-EPI 2020 equation Sodium 08/10/2023 09:03:19 136 135-146 (m mol/L) Final Potassium 08/10/2023 09:03:19 4.4 3.5-5.1 (m mol/L) Final Cl 08/10/2023 09:03:19 98 98-107 (mm ol/L) Final CO2 08/10/2023 09:03:19 27 22-32 (mmo l/L) Final Anion gap 08/10/2023 09:03:19 11 7-15 (mmol /L) Final Glucose 08/10/2023 09:03:19 146 Above high normal 70 -120 (mg/dL) Final Calcium 08/10/2023 09:03:19 9.3 8.4-10.2 ( mg/dL) Final Performing Location [facility] [place] [facility] [place] [address] [place] [address]
--- OUTSIDE RECORDS SUMMARY | 2023-11-02 07:27 | External Medical Summary | Summary of Care ---
Author Name Unknown Organization [facility] Address [address] [place] [address] Phone [phone] Care Team Providers Care Sample Room Supervisor Name Role Phone Viktor Mcdonald MD Primary Care Provider +1- [phone] Reason for Visit * Reason Comments Outpatient Testing Encounter Details Date Type Department Care Team (Late st Contact Info) Description 08/10/2023 9:00 AM EDT Laboratory Laboratory, [place] [address] [place] [address] [place], [facility] [address], [place] [id number] Low serum vitamin B12; Type 2 diabetes mellitus with hemoglobin A1c goal of less than 8.0% ([facility]); Hypothyroidism, unspecified type Allergies No known active allergiesdocumented as of this encounter (statuses as of 08/10/2023) Medications Medication Sig Dispensed Refills Start Date [...] BY MOUTH EVERY DAY 90 Tablet 2 05/30/2021 Active OneTouch Ultra In Vitro Strip (Glucose Blood)Indications:T [...] WITH MEALS 300 Tablet 3 03/06/2023 Active glipiZIDE 10 MG Oral Tablet (Glucotrol) TAKE 1 TABLET BY MOUTH TWICE A DAY 30 MINS BEFORE A MEAL 180 Tablet 1 03/13/2023 Active B-12 1000 MCG Oral TabletIndications:L ow serum vitamin B12 Take 1 tab by mouth daily. 0 04/13/2023 Active Levothyroxine Sodium 88 MCG Oral [...] THE MORNING 90 Tablet 3 06/09/2023 Active Losartan Potassium 50 MG Oral Tablet (Cozaar) TAKE 1 TABLET BY MOUTH TWICE A DAY 180 Tablet 2 06/10/2023 Active amLODIPine Besylate 5 MG Oral Tablet (Norvasc)Indication s:HTN, goal below 140/90,Old [place] (myocardial infarction) TAKE 1 TABLET BY MOUTH EVERY DAY 90 Tablet 3 06/09/2023 Active Citalopram Hydrobromide 20 MG Oral Tablet (CeleXA) TAKE 1 TABLET BY MOUTH EVERY DAY 90 Tablet 1 07/01/2023 Active Ezetimibe 10 MG Oral Tablet (Zetia)Indications: HTN, goal below 140/90,Old [place] (myocardial infarction) TAKE 1 TABLET BY MOUTH EVERY DAY 90 Tablet 3 06/30/2023 Active Isosorbide Mononitrate ER 30 MG Oral Tablet Extended Release 24 Hour (Imdur)Indications: HTN, goal below 140/90 TAKE 1 TABLET BY MOUTH EVERY DAY IN THE MORNING 90 Tablet 3 06/30/2023 Active documented as of this encounter (statuses as of 08/10/2023) Active Problems Problem Noted Date Diagnosed Date Facet arthropathy, multilevel 09/28/2022 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 02/17/2021 Age-related [...] as of this encounter (statuses as of 08/10/2023) Resolved Problems Problem Noted Date Diagnosed Date [...] as of this encounter (statuses as of 08/10/2023) Immunizations Name Administration Dates Next Due COVID-19 [...] Description 08/17/2023 5:40 PM EDT Office Visit [facility] [address] [place] [place] [id number] Viktor [facility]cdonald [facility] [address] [facility] [address] 09/14/2023 4:00 PM EDT Office Visit [facility], [facility] [address] [facility] [place] [address] Ricardo Deluna MD [address] [place] [address] Pending Results Name Type Priority Associated Diagnoses Date /Time VITAMIN B12 Lab Routine Low serum vitamin B12 08/10/2023 9:03 AM EDT HEMOGLOBIN A1C Lab Routine Type 2 diabetes mellitus with hemoglobin A1c goal of less than 8.0% ([facility]) 08/10/2023 9:03 AM EDT BASIC METABOLIC PANEL Lab Routine Type 2 diabetes mellitus with hemoglobin A1c goal of less than 8.0% ([facility]) 08/10/2023 9:03 AM EDT TSH WITH FREE T4 IF INDICATED Lab Routine Hypothyroidism, unspecified type 08/10/2023 9:03 AM EDT Health Maintenance Due Date Last Done Comments Zoster Vaccines (1 of 2) 1994 Mammogram 01/07/2021 01/08/2020, 08/0 05/2017, 12/14/2016, Additional [...] D LEVEL ONCE IN A LIFETIME-USE SMARTSET# 85517 Completed 06/09/2022 GARDASIL-HPV IMMUNIZATION SERIES Aged Out No longer eligible based on patient's age to complete this topic Hepatitis B Aged Out No longer eligi ble based on patient's age to complete this topic MENINGOCOCCAL (MENACTRA/MENVEO) Aged Out No longer eligible based on patient's age to complete this topic documented as of this encounter Medical Devices Implanted Type Area Professional Application Designer Device Identifier Shelf Expiration Date Model / Serial / Lot Mx60 24.0d Implanted:Qty: 1 on 11/15/2014 by Mau Angel MD at OR [facility] Eye [employer]OM[employer] 04/17/2017 [id number] / / [id number] Lens 23.5 Mx60 - [id number] - [id number] Implanted:Qty: 1 on 01/04/2017 by Terrence Mccormack DO at OR [facility] Right: Eye BA[employer]CH [employer] LOMB : SURGICAL 05/16/2019 MX60-23.5 / [id number] / [id number] documented as of this encounter Visit Diagnoses Diagnosis Low serum vitamin B12 Type 2 diabetes mellitus with hemoglobin A1c goal of less than 8.0% (HCC) Hypothyroidism, unspecified type documented in this encounter Advance Directives Documents on File Type Date Recorded Patient Mass Spectrometry Specialist Expl anation Advance Directives and Living [...] 5:19 PM 03/30/2007 4:48 PM Care Teams Sample Room Supervisor Relationship Specialty Start Date End Date Viktor Mcdonald MD [address] [place] [address] PCP - General 03/04/00 documented as of this encounter
--- OUTSIDE RECORDS SUMMARY | 2023-11-02 07:27 | External Medical Summary | Summary of Care ---
Author Name Unknown Organization [facility] Address [address] [facility] [place] [address] Phone [phone] Care Team Providers Care Electronic Coils Supervisor Name Role Phone Viktor Mcdonald MD Primary Care Provider +1- [phone] Reason for Visit * Reason Comments eRx-Medication Refill Encounter Details Date Type Department Care Team (Late st Contact Info) Description 06/30/2023 Refill Cardiology, [facility] [address] [place] [address] Ricardo Deluna MD [address] [place] [address] HTN, goal below 140/90; Old [place] (myocardial infarction) Allergies No known active allergiesdocumented as of this encounter (statuses as of 06/30/2023) Medications Medication Sig Dispensed Refills Start Date [...] hemoglobin A1c goal of less than 8.0% ([facility]) TEST BLOOD SUGAR THREE TIMES PER DAY DIRECTED - UNCONTROLLED DIABETES 300 Strip 3 3 Active Citalopram Hydrobromide 20 MG Oral Tablet (CeleXA) TAKE 1 TABLET BY MOUTH EVERY DAY 90 Tablet 1 3 Active metFORMIN HCl 850 MG Oral [...] Oral Tablet (Norvasc)Indicati ons:HTN, goal below 140/90,Old [place] (myocardial infarction) TAKE 1 TABLET BY MOUTH EVERY DAY 90 Tablet 3 4 Active Ezetimibe 10 MG Oral Tablet (Zetia)Indication s:HTN, goal below 140/90,Old [place] (myocardial infarction) TAKE 1 TABLET BY MOUTH EVERY DAY 90 Tablet 3 4 Active Ezetimibe 10 MG Oral Tablet (Zetia)Indication s:HTN, goal below 140/90,Old [place] (myocardial infarction) TAKE 1 TABLET BY MOUTH EVERY DAY 90 Tablet 3 3 06/30/19 24 Discontinued Isosorbide Mononitrate ER 30 MG Oral Tablet Extended Release 24 Hour (Imdur) Take 1 Tablet by mouth in the morning. 90 Tablet 3 3 06/30/19 24 Discontinued documented as of this encounter (statuses as of 06/30/2023) Active Problems Problem Noted Date Diagnosed Date Facet arthropathy, multilevel 09/28/2022 Atherosclerosis of [place] co ronary artery of [place] heart with stable angina pectoris 02/17/2021 Age-related [...] as of this encounter (statuses as of 06/30/2023) Resolved Problems Problem Noted Date Diagnosed Date [...] as of this encounter (statuses as of 06/30/2023) Immunizations Name Administration Dates Next Due COVID-19 [...] encounter Miscellaneous Notes * Telephone Encounter - Zena Alexander CRNP - 06/30/2023 12:19 PM EST Signed Prescriptions: Disp Refills Ezetimibe 10 MG Oral Tablet (Zetia) 90 Tab*3 Sig: TAKE 1 TABLET BY MOUTH EVERY DAY Authorizing Provider: ZENA ALEXANDER * Telephone Encounter - Yecenia Garcia COT - 06/30/2023 11:21 AM ESTPending Prescriptions: Disp Refills Ezetimibe 10 MG Oral Tablet [Pharmacy Med *90 Tab*3 Sig: TAKE 1 TABLET BY MOUTH EVERY DAY * Telephone Encounter - Yecenia Garcia COT - 06/30/2023 11:21 AM EST Did you pend patient's preferred pharmacy and medication before forwarding?yes Pharmacy: [id number] [address] [facility] Pending Prescriptions: Disp Refills Ezetimibe 10 MG Oral Tablet (Zetia) [Phar*90 Tab*3 Sig: TAKE 1 TABLET BY MOUTH EVERY DAY Last Visit: 09/22/2022 (in office), Visit date not found (telemedicine) Next Visit: Visit date not found If no future appointments scheduled, and last appointment is greater than a year ago, please schedule patient for a follow-up appointment Last date the medication was ordered: 08-06-2022 Is this request for a controlled substance?No Urine Drug Screen:No results found for this or any previous visit. Patient Phone Numbers Labs: Lab Results Component Value Date/Time CREAT 1.1 (H) 04/06/2023 08:29 AM CREAT 1.0 03/05/2020 09:12 AM POTASSIUM 4.3 04/06/2023 08:29 AM POTASSIUM 4.6 03/05/2020 09:12 AM TSH 0.20 (L) 04/06/2023 08:29 AM TSH 0.41 03/05/2020 09:12 AM LDLCALC 69 12/10/2021 08:50 AM LDLCALC 79 09/20/2019 08:41 AM LDLCALC 179. (HH) 03/31/1996 09:30 AM LDLDIRECT NOT APPLICABLE 09/20/2019 08:41 AM LDLDIRECT 82 07/06/2013 09:22 AM ALT 17 04/06/2023 08:29 AM ALT 33 03/05/2020 09:12 AM ALT 12 (L) 03/31/1996 09:30 AM HGBA1C 6.4 (H) 04/06/2023 08:29 AM HGBA1C 7.6 (H) 03/05/2020 09:12 AM documented in this encounter Plan of Treatment Upcoming Encounters Date Type Department Care Team (Late st Contact Info) Description 08/17/2023 5:40 PM EDT Office Visit [facility] [address] [facility] [place] [address] Viktor Mcdonald MD [address] [facility] [place] [address] Health Maintenance Due Date Last Done Comments Zoster Vaccines (1 of 2) 1994 Hepatitis B (1 of 3 - Risk 3-dose series) 2004 Mammogram 01/07/2021 01/08/2020, 0805/2017, 12/14/2016, Additional history [...] D LEVEL ONCE IN A LIFETIME-USE SMARTSET# 17859 Completed 06/09/2022 GARDASIL-HPV IMMUNIZATION SERIES Aged Out No longer eligible based on patient's age to complete this topic MENINGOCOCCAL (MENACTRA/MENVEO) Aged Out No longer eligible based on patient's age to complete this topic documented as of this encounter Medical Devices Implanted Type Area Mission Worker Device Identifier Shelf Expiration Date Model / Serial / Lot Mx60 24.0d Implanted:Qty: 1 on 11/15/2014 by Mau Angel MD at OR [facility] Eye [employer]OMB 04/17/2017 [id number] 31 / / [id number] Lens 23.5 Mx60 - [id number] - [id number] Implanted:Qty: 1 on 01/04/2017 by Terrence Mccormack DO at OR [facility] Right: Eye BA[employer]CH [employer] LOMB : SURGICAL 05/16/2019 MX60-23.5 / [id number] / [id number] documented as of this encounter Visit Diagnoses Diagnosis HTN, goal below 140/90 Unspecified essential hypertension Old [place] (myocardial infarction) Old myocardial infarction documented in this encounter Advance Directives Documents on File Type Date Recorded Patient Interventional Tech Expl anation Advance Directives and Living Will [...] 5:19 PM 03/30/2007 4:48 PM Care Teams Electronic Coils Supervisor Relationship Specialty Start Date End Date Viktor Mcdonald MD [address] [place] [address] PCP - General 03/04/00 documented as of this encounter
--- OUTSIDE RECORDS SUMMARY | 2023-11-02 07:27 | External Medical Summary | Summary of Care ---
Author Name Unknown Organization [facility] Address [address] [place] [address] Phone [phone] Care Team Providers Care Membership Administrator Name Role Phone Mayelin Ritter MD Primary Care Provider +1- [phone] Reason for Visit * Reason Comments eRx-Medication Refill Encounter Details Date Type Department Care Team (Late st Contact Info) Description 08/25/2023 Refill [facility] [address] [place] [address] Mayelin Ritter MD [address] [place] [address] Allergies No known active allergiesdocumented as of this encounter (statuses as of 08/26/2023) Medications Medication Sig Dispensed Refills Start Date [...] hemoglobin A1c goal of less than 8.0% ([facility]) TEST BLOOD SUGAR THREE TIMES [...] Oral Tablet (Norvasc)Indicati ons:HTN, goal below 140/90,Old [place] (myocardial infarction) TAKE 1 TABLET BY MOUTH EVERY DAY 90 Tablet 3 4 Active Citalopram Hydrobromide 20 MG Oral Tablet (CeleXA) TAKE 1 TABLET BY MOUTH EVERY DAY 90 Tablet 1 4 Active Ezetimibe 10 MG Oral Tablet (Zetia)Indication s:HTN, goal below 140/90,Old [place] (myocardial infarction) [...] A MEAL 180 Tablet 1 4 Active glipiZIDE 10 MG Oral Tablet (Glucotrol) TAKE 1 TABLET BY MOUTH TWICE A DAY 30 MINS BEFORE A MEAL 180 Tablet 1 3 08/26/19 24 Discontinued documented as of this encounter (statuses as of 08/26/2023) Active Problems Problem Noted Date Diagnosed Date Chronic kidney disease, stage 3a 08/23/2023 Overview: Per CKD protocol Facet arthropathy, multilevel 09/28/2022 Atherosclerosis of [place] co ronary artery of [place] heart with stable angina pectoris 02/17/2021 Age-related [...] as of this encounter (statuses as of 08/26/2023) Resolved Problems Problem Noted Date Diagnosed Date [...] as of this encounter (statuses as of 08/26/2023) Immunizations Name Administration Dates Next Due COVID-19 [...] encounter Miscellaneous Notes * Telephone Encounter - Du Brown RPh - 08/26/2023 1:18 PM EDTSigned Prescriptions: Disp Refills glipiZIDE 10 MG Oral Tablet (Glucotrol) 180 Ta*1 Sig: TAKE 1 TABLET BY MOUTH TWICE A DAY 30 MINS BEFORE A MEALAuthorizing Provider: MAYELIN RITTER User: DU BROWN documented in this encounter Plan of Treatment Upcoming Encounters Date Type Department Care Team (Late st Contact Info) Description 09/14/2023 4:00 PM EDT Office Visit Cardiology, [facility] [address] [place] [address] Ricardo Deluna MD [address] [facility] [place] [address] 03/16/2024 1:20 PM EDT Office Visit [facility] [address] [place] [facility] [place] [id number] Mayelin Ritter MD [address] [place] [facility] [place] [address] Health Maintenance Due Date Last Done Comments Zoster Vaccines (1 of 2) 1994 Mammogram 01/07/2021 01/08/2020, 0805/2017, 12/14/2016, Additional history [...] 08/09/2024 08/10/2023, 03/18, 06/09/2022, Additional history exists GFR 08/09/2024 08/10/2023, 03/18, 06/09/2022, Additional history exists TSH 08/09/2024 08/10/2023, 03/18, 06/09/2022, Additional history exists Pneumococcal Vaccine: 65+ Years Completed 04/03/2015, 06/23/2010, 10/24/2004 VITAMIN D LEVEL ONCE IN A LIFETIME-USE SMARTSET# 42047 Completed 06/09/2022 GARDASIL-HPV IMMUNIZATION SERIES Aged Out No longer eligible based on patient's age to complete this topic Hepatitis B Aged Out No longer eligi ble based on patient's age to complete this topic MENINGOCOCCAL (MENACTRA/MENVEO) Aged Out No longer eligible based on patient's age to complete this topic documented as of this encounter Medical Devices Implanted Type Area Reproduction Technician Device Identifier Shelf Expiration Date Model / Serial / Lot Mx60 24.0d Implanted:Qty: 1 on 11/15/2014 by Mau Angel MD at OR [facility] Eye [employer] LOMB 04/17/2017 [id number] 31 / / [id number] Lens 23.5 Mx60 - [id number] - [id number] Implanted:Qty: 1 on 01/04/2017 by Terrence Mccormack DO at OR [facility] Right: Eye [employer] LOMB : SURGICAL 05/16/2019 MX60-23.5 / [id number] / [id number] documented as of this encounter Advance Directives Documents on File Type Date Recorded Patient Cnc Mill Set Up Operator Expl anation Advance Directives and Living Will [...] 5:19 PM 03/30/2007 4:48 PM Care Teams Membership Administrator Relationship Specialty Start Date End Date Mayelin Ritter MD [address] [place] [address] PCP - General 03/04/00 documented as of this encounter
--- OUTSIDE RECORDS SUMMARY | 2023-11-02 07:28 | External Medical Summary | Summary of Care ---
Author Name Unknown Organization [facility] Address [address] [facility] [address] Phone [phone] Care Team Providers Care Gastroenterologist Name Role Phone Viktor Mcdonald MD Primary Care Provider +1- [phone] Reason for Visit * Reason Comments eRx-Medication Refill Encounter Details Date Type Department Care Team (Late st Contact Info) Description 06/09/2023 Refill Cardiology, [facility] [address] [place] [address] Ricardo Deluna MD [address] [employer] [place] [address] HTN, goal below 140/90; Old [place] (myocardial infarction) Allergies No known active allergiesdocumented as of this encounter (statuses as of 06/09/2023) Medications Medication Sig Dispensed Refills Start Date [...] EVERY DAY 90 Tablet 2 2 Active Ezetimibe 10 MG Oral Tablet (Zetia)Indication s:HTN, goal below 140/90,Old [place] (myocardial infarction) TAKE 1 TABLET BY MOUTH EVERY DAY 90 Tablet 3 3 Active Isosorbide Mononitrate ER 30 MG Oral Tablet Extended Release 24 Hour (Imdur) Take 1 Tablet by mouth in the morning. 90 Tablet 3 3 Active Losartan Potassium 50 MG Oral Tablet (Cozaar) TAKE 1 TABLET BY MOUTH TWICE A DAY 180 Tablet 2 3 Active OneTouch Ultra In Vitro Strip (Glucose [...] EVERY DAY 90 Tablet 3 4 Active amLODIPine Besylate 5 MG Oral Tablet (Norvasc)Indicati ons:HTN, goal below 140/90,Old [place] (myocardial infarction) TAKE 1 TABLET BY MOUTH EVERY DAY 90 Tablet 3 4 Active amLODIPine Besylate 5 MG Oral Tablet (Norvasc)Indicati ons:HTN, goal below 140/90,Old [place] (myocardial infarction) TAKE 1 TABLET BY MOUTH EVERY DAY 90 Tablet 3 3 06/09/19 24 Discontinued documented as of this encounter (statuses as of 06/09/2023) Active Problems Problem Noted Date Diagnosed Date Facet arthropathy, multilevel 09/28/2022 Atherosclerosis of [place] co ronary artery of [place] heart with stable angina pectoris 02/17/2021 Age-related osteoporosis wit hout current pathological fracture 02/17/2021 Old [place] (myocardial infarction) 01/03/2019 Chronic rhinitis 07/16/2015 HTN, [...] as of this encounter (statuses as of 06/09/2023) Resolved Problems Problem Noted Date Diagnosed Date [...] as of this encounter (statuses as of 06/09/2023) Immunizations Name Administration Dates Next Due COVID-19 [...] Telephone Encounter - Zena Alexander CRNP - 06/09/2023 3:09 PM EST Signed Prescriptions: Disp Refills amLODIPine Besylate 5 MG Oral Tablet (Norv*90 Tab*3 Sig: TAKE 1 TABLET BY MOUTH EVERY DAY Authorizing Provider: ZENA ALEXANDER * Telephone Encounter - Yecenia Garcia COT - 06/09/2023 3:05 PM ESTPending Prescriptions: Disp Refills amLODIPine Besylate 5 MG Oral Tablet [Phar*90 Tab*3 Sig: TAKE 1 TABLET BY MOUTH EVERY DAY * Telephone Encounter - Yecenia Garcia COT - 06/09/2023 3:05 PM EST Did you pend patient's preferred pharmacy and medication before forwarding?yes Pharmacy: [id number] [address] [place] [address] Pending Prescriptions: Disp Refills amLODIPine Besylate 5 MG Oral Tablet (Nor*90 Tab*3 Sig: TAKE 1 TABLET BY MOUTH [...] Description 08/17/2023 5:40 PM EDT Office Visit [facility] [address] [place] [facility] [place] [address] Viktor Mcdonald MD [address] [place] [facility] [place] [address] Health Maintenance Due Date Last Done [...] D LEVEL ONCE IN A LIFETIME-USE SMARTSET# 09080 Completed 06/09/2022 GARDASIL-HPV IMMUNIZATION SERIES Aged Out No longer eligible based on patient's age to complete this topic MENINGOCOCCAL (MENACTRA/MENVEO) Aged Out No longer eligible based on patient's age to complete this topic documented as of this encounter Medical Devices Implanted Type Area Detasseler Device Identifier Shelf Expiration Date Model / Serial / Lot Mx60 24.0d Implanted:Qty: 1 on 11/15/2014 by Mau Angel MD at OR [facility] Eye [employer]CH [employer] LOMB 04/17/2017 [id number] 31 / / [id number] Lens 23.5 Mx60 - [id number] - [id number] Implanted:Qty: 1 on 01/04/2017 by Terrence Mccormack DO at OR [facility] Right: Eye [employer]CH [employer] LOMB : SURGICAL 05/16/2019 MX60-23.5 / [id number] / [id number] documented as of this encounter Visit Diagnoses Diagnosis HTN, goal below 140/90 Unspecified essential hypertension Old [place] (myocardial infarction) Old myocardial infarction documented in this encounter Advance Directives Documents on File Type Date Recorded Patient Corporate Development Intern Expl anation Advance Directives and Living Will [...] 5:19 PM 03/30/2007 4:48 PM Care Teams Gastroenterologist Relationship Specialty Start Date End Date Viktor Mcdonald MD [address] [place] [address] PCP - General 03/04/00 documented as of this encounter
--- OUTSIDE RECORDS SUMMARY | 2023-11-02 07:28 | External Medical Summary | Summary of Care ---
Author Name Unknown Organization [facility] Address [address] [facility] [address] Phone [phone] Care Team Providers Care Purchasing Administrator Name Role Phone Viktor Mcdonald MD Primary Care Provider +1- [phone] Reason for Visit * Reason Comments eRx-Medication Refill Encounter Details Date Type Department Care Team (Late st Contact Info) Description 06/30/2023 Refill Cardiology, [facility] [address] [place] [address] Zena Alexander CRNP [address] [place] [address] HTN, goal below 140/90* Allergies No known active allergiesdocumented as of [...] A1c goal of less than 8.0% ([facility]) TEST BLOOD SUGAR THREE TIMES PER [...] Oral Tablet (Norvasc)Indicati ons:HTN, goal below 140/90,Old [place] (myocardial infarction) TAKE 1 TABLET BY MOUTH EVERY DAY 90 Tablet 3 4 Active Isosorbide Mononitrate ER 30 MG Oral Tablet Extended Release 24 Hour (Imdur)Indication s:HTN, goal below 140/90 TAKE 1 TABLET BY MOUTH EVERY DAY IN THE MORNING 90 Tablet 3 4 Active Isosorbide Mononitrate ER 30 MG Oral Tablet Extended Release 24 Hour (Imdur) Take 1 Tablet by mouth in the morning. 90 Tablet 3 3 06/30/19 24 Discontinued documented as of this encounter (statuses as of 06/30/2023) Active Problems Problem Noted Date Diagnosed Date Facet arthropathy, multilevel 09/28/2022 Atherosclerosis of [place] co ronary artery of [place] heart with stable angina pectoris 02/17/2021 Age-related osteoporosis wit hout current pathological fracture 02/17/2021 Old [place] (myocardial infarction) 01/03/2019 Chronic rhinitis 07/16/2015 HTN, [...] Encounter - Zena Alexander CRNP - 06/30/2023 12:20 PM EST Signed Prescriptions: Disp Refills Isosorbide Mononitrate ER 30 MG Oral Table*90 Tab*3 Sig: TAKE 1 TABLET BY MOUTH EVERY DAY IN THE MORNING Authorizing Provider: ZENA ALEXANDER * Telephone Encounter - Yecenia Garcia COT - 06/30/2023 11:22 AM ESTPending Prescriptions: Disp Refills Isosorbide Mononitrate ER 30 MG Oral Table*90 Tab*3 Sig: TAKE 1 TABLET BY MOUTH EVERY DAY IN THE MORNING * Telephone Encounter - Yecenia Garcia COT - 06/30/2023 11:21 AM EST Did you pend patient's preferred pharmacy and medication before forwarding?yes Pharmacy: [id number] [address] [place] [address] Pending Prescriptions: Disp Refills Isosorbide Mononitrate ER 30 MG Oral Tabl*90 Tab*3 Sig: TAKE 1 TABLET BY MOUTH EVERY DAY IN THE MORNING Last Visit: 09/22/2022 (in office), Visit date not found (telemedicine) Next Visit: Visit date not found If no future appointments scheduled, and last appointment is greater than a year ago, please schedule patient for a follow-up appointment Last date the medication was ordered: 09-04-2022 Is this request for a controlled substance?No [...] Description 08/17/2023 5:40 PM EDT Office Visit [facility] [address] [place] [facility] [place] [address] Viktor Mcdonald MD [address] [facility] [address] Health Maintenance Due Date Last Done Comments Zoster Vaccines (1 of 2) 1994 Hepatitis B (1 of 3 - Risk 3-dose series) 2004 Mammogram 01/07/2021 01/08/2020, 08/05/2017, 12/14/2016, Additional history exists *BISPHONATE OR OTHER [...] D LEVEL ONCE IN A LIFETIME-USE SMARTSET# [id number] Completed 06/09/2022 GARDASIL-HPV IMMUNIZATION SERIES Aged Out No longer eligible based on patient's age to complete this topic MENINGOCOCCAL (MENACTRA/MENVEO) Aged Out No longer eligible based on patient's age to complete this topic documented as of this encounter Medical Devices Implanted Type Area Video Library Assistant Device Identifier Shelf Expiration Date Model / Serial / Lot Mx60 24.0d Implanted:Qty: 1 on 11/15/2014 by Mau Angel MD at OR [facility] Eye [employer]OM[employer] 04/17/2017 [id number] / / [id number] Lens 23.5 Mx60 - [id number] - [id number] Implanted:Qty: 1 on 01/04/2017 by Terrence Mccormack DO at OR [facility] Right: Eye BA[employer]CH [employer] LOMB : SURGICAL 05/16/2019 MX60-23.5 / [id number] / [id number] documented as of this encounter Visit Diagnoses Diagnosis HTN, goal below 140/90- Primary Unspecified essential hypertension documented in this encounter Advance Directives Documents on File Type Date Recorded Patient Barrel Brander Expl anation Advance Directives and Living Will [...] 5:19 PM 03/30/2007 4:48 PM Care Teams Purchasing Administrator Relationship Specialty Start Date End Date Viktor Mcdonald MD [address] [place] [address] PCP - General 03/04/00 documented as of this encounter
--- OUTSIDE RECORDS SUMMARY | 2023-11-02 07:28 | External Medical Summary | Summary of Care ---
Author Name Unknown Organization [facility] Address [address] [place] [address] Phone [phone] Care Team Providers Care Electric Truck Driver Name Role Phone Mayelin Ritter MD Primary Care Provider +1- [phone] Reason for Visit * Reason Comments eRx-Medication Refill Encounter Details Date Type Department Care Team (Late st Contact Info) Description 06/09/2023 Refill [facility] [address] [place] [address] Mayelin Ritter MD [address] [place] [address] Allergies No known active allergiesdocumented as of this encounter (statuses as of 06/10/2023) Medications Medication Sig Dispensed Refills Start Date [...] Oral Tablet (Zetia)Indication s:HTN, goal below 140/90,Old [place] (myocardial infarction) TAKE 1 TABLET BY MOUTH EVERY DAY 90 Tablet 3 3 Active Isosorbide Mononitrate ER 30 MG Oral Tablet Extended Release 24 Hour (Imdur) Take 1 Tablet by mouth in the morning. 90 Tablet 3 3 Active OneTouch Ultra In Vitro Strip [...] Oral Tablet (Norvasc)Indicati ons:HTN, goal below 140/90,Old [place] (myocardial infarction) TAKE 1 TABLET BY MOUTH EVERY DAY 90 Tablet 3 4 Active Losartan Potassium 50 MG Oral Tablet (Cozaar) TAKE 1 TABLET BY MOUTH TWICE A DAY 180 Tablet 2 3 06/10/19 24 Discontinued documented as of this encounter (statuses as of 06/10/2023) Active Problems Problem Noted Date Diagnosed Date Facet arthropathy, multilevel 09/28/2022 Atherosclerosis of [place] co ronary artery of [place] heart with stable angina pectoris 02/17/2021 Age-related osteoporosis wit hout current pathological fracture 02/17/2021 Old [place] (myocardial infarction) 01/03/2019 Chronic rhinitis 07/16/2015 HTN, [...] as of this encounter (statuses as of 06/10/2023) Resolved Problems Problem Noted Date Diagnosed Date [...] as of this encounter (statuses as of 06/10/2023) Immunizations Name Administration Dates Next Due COVID-19 [...] encounter Miscellaneous Notes * Telephone Encounter - Miko Whitt [facility] - 06/10/2023 10:34 AM ESTSigned Prescriptions: Disp Refills Losartan Potassium 50 MG Oral Tablet (Coza*180 Ta*2 Sig: TAKE 1 TABLET BY MOUTH TWICE A DAYAuthorizing Provider: MAYELIN RITTER User: MIKO WHITT- documented in this encounter Plan of Treatment Upcoming Encounters Date Type Department Care Team (Late st Contact Info) Description 08/17/2023 5:40 PM EDT Office Visit [facility] [address] [place] [address] Mayelin Ritter MD [address] [place] [address] Health Maintenance Due Date Last [...] D LEVEL ONCE IN A LIFETIME-USE SMARTSET# [id number] Completed 06/09/2022 GARDASIL-HPV IMMUNIZATION SERIES Aged Out No longer eligible based on patient's age to complete this topic MENINGOCOCCAL (MENACTRA/MENVEO) Aged Out No longer eligible based on patient's age to complete this topic documented as of this encounter Medical Devices Implanted Type Area Dry Cell Tester Device Identifier Shelf Expiration Date Model / Serial / Lot Mx60 24.0d Implanted:Qty: 1 on 11/15/2014 by Mau Angel MD at OR [facility] Eye [employer]CH [employer] LOMB 04/17/2017 [id number] / [id number] Lens 23.5 Mx60 - [id number] - [id number] Implanted:Qty: 1 on 01/04/2017 by Terrence Mccormack DO at OR [facility] Right: Eye BA[employer]CH [employer] LOMB : SURGICAL 05/16/2019 MX60-23.5 / [id number] / [id number] documented as of this encounter Advance Directives Documents on File Type Date Recorded Patient Formula Bottler Expl anation Advance Directives and Living Will [...] 5:19 PM 03/30/2007 4:48 PM Care Teams Electric Truck Driver Relationship Specialty Start Date End Date Mayelin Ritter MD [address] [place] [address] PCP - General 03/04/00 documented as of this encounter
--- OUTSIDE RECORDS SUMMARY | 2023-11-02 07:28 | External Medical Summary | Summary of Care ---
Author Name Unknown Organization [facility] Address [address] [place] [address] Phone [phone] Care Team Providers Care Musical Performer Name Role Phone Viktor Mcdonald MD Primary Care Provider +1- [phone] Encounter Details Date Type Department Care Team (Late st Contact Info) Description 04/27/2023 Telephone [facility] [address] [place] [facility] [place] [address] Viktor Mcdonald MD [address] [place] [address] Allergies No known active allergiesdocumented as of this encounter (statuses as of 06/04/2023) Medications Medication Sig Dispensed Refills Start Date [...] EVERY DAY 90 Tablet 2 05/30/2021 Active amLODIPine Besylate 5 MG Oral Tablet (Norvasc)Indication s:HTN, goal below 140/90,Old [place] (myocardial infarction) TAKE 1 TABLET BY MOUTH EVERY DAY 90 Tablet 3 08/06/2022 Active Ezetimibe 10 MG Oral Tablet (Zetia)Indications: HTN, goal below 140/90,Old [place] (myocardial infarction) TAKE 1 TABLET BY MOUTH EVERY DAY 90 Tablet 3 08/06/2022 Active Metoprolol Succinate ER 25 MG Oral Tablet Extended Release 24 Hour (toPROL XL) Take 1 Tablet by mouth in the morning. 90 Tablet 3 08/12/2022 Active Isosorbide Mononitrate ER 30 MG Oral Tablet Extended Release 24 Hour (Imdur) Take 1 Tablet by mouth in the morning. 90 Tablet 3 09/04/2022 Active Losartan Potassium 50 MG Oral Tablet (Cozaar) TAKE 1 TABLET BY MOUTH TWICE A DAY 180 Tablet 2 09/08/2022 Active OneTouch Ultra In Vitro Strip (Glucose Blood)Indications:T ype 2 diabetes mellitus with hemoglobin A1c goal of less than 8.0% (HCC) TEST BLOOD SUGAR THREE TIMES PER DAY DIRECTED - UNCONTROLLED DIABETES 300 Strip 3 10/09/2022 Active Citalopram Hydrobromide 20 MG Oral Tablet (CeleXA) TAKE 1 TABLET BY MOUTH EVERY DAY 90 Tablet 1 02/24/2023 Active metFORMIN HCl 850 MG Oral Tablet [...] other meds). 90 Tablet 3 04/13/2023 Active documented as of this encounter (statuses as of 06/04/2023) Active Problems Problem Noted Date Diagnosed Date Facet arthropathy, multilevel 09/28/2022 Atherosclerosis of [place] co ronary artery of [place] heart with stable angina pectoris 02/17/2021 Age-related osteoporosis wit hout current pathological fracture 02/17/2021 Old [place] (myocardial infarction) 01/03/2019 Chronic rhinitis 07/16/2015 HTN, [...] as of this encounter (statuses as of 06/04/2023) Resolved Problems Problem Noted Date Diagnosed Date [...] as of this encounter (statuses as of 06/04/2023) Immunizations Name Administration Dates Next Due COVID-19 mRNA, LNP-s, No Pre serve, 2-Dose Series (Quantum4D) 03/12/2021,09/04/2020,08/14/2020 Pneumococcal Conjugate Vacc, 13 Valent (Prevnar) [...] encounter Miscellaneous Notes * Telephone Encounter - Lilly Reeder LPN - 04/29/2023 8:57 AM EST Patient was contacted and verbalized understanding. * Telephone Encounter - Viktor Mcdonald MD - 04/28/2023 9:25 PM EST BP looks great - no changes from me * Telephone Encounter - Laura Daley LPN - 04/27/2023 10:30 AM EST PT STOPPED IN FOR A BP CHECK SUGGESTED BY THE PROVIDER. Blood pressure 120/64 Please advise documented in this encounter Plan of Treatment Upcoming Encounters Date Type Department Care Team (Late st Contact Info) Description 08/17/2023 5:40 PM EDT Office Visit [facility] [address] [place] [address] Viktor Mcdonald MD [address] [place] [address] Health Maintenance Due Date Last Done Comments Zoster Vaccines (1 of 2) 1994 Hepatitis B (1 of 3 - Risk 3-dose series) 2004 Mammogram 01/07/2021 01/08/2020, 05/2017, 12/14/2016, Additional history [...] D LEVEL ONCE IN A LIFETIME-USE SMARTSET# [id number] Completed 06/09/2022 GARDASIL-HPV IMMUNIZATION SERIES Aged Out No longer eligible based on patient's age to complete this topic MENINGOCOCCAL (MENACTRA/MENVEO) Aged Out No longer eligible based on patient's age to complete this topic documented as of this encounter Medical Devices Implanted Type Area Retail Business Manager Device Identifier Shelf Expiration Date Model / Serial / Lot Mx60 24.0d Implanted:Qty: 1 on 11/15/2014 by Mau Angel MD at OR [facility] Eye BA[employer]CH [employer] LOMB 04/17/2017 [id number] / / [id number] Lens 23.5 Mx60 - [id number] - [id number] Implanted:Qty: 1 on 01/04/2017 by Terrence Mccormack DO at OR [facility] Right: Eye [employer]CH [employer] LOMB : SURGICAL 05/16/2019 MX60-23.5 / [id number] / [id number] documented as of this encounter Advance Directives Documents on File Type Date Recorded Patient Test Data Developer Expl anation Advance Directives and Living Will [...] 5:19 PM 03/30/2007 4:48 PM Care Teams Musical Performer Relationship Specialty Start Date End Date Viktor Mcdonald MD [address] [place] [address] PCP - General 03/04/00 documented as of this encounter
--- OUTSIDE RECORDS SUMMARY | 2023-11-02 07:28 | External Medical Summary | Summary of Care ---
Author Name Unknown Organization [facility] Address [address] [place] [facility] [place] [address] Phone [phone] Care Team Providers Care Form Setter Supervisor Name Role Phone Viktor Mcdonald MD Primary Care Provider +1- [phone] Reason for Visit * Reason Comments eRx-Medication Refill Encounter Details Date Type Department Care Team (Late st Contact Info) Description 06/02/2023 Refill Cardiology, [facility] [address] [place] [address] Ricardo Deluna MD [address] [place] [address] Dyslipidemia, goal LDL below 70 Allergies No known active allergiesdocumented as of this encounter (statuses as of 06/02/2023) Medications Medication Sig Dispensed Refills Start Date [...] EVERY DAY 90 Tablet 2 2 Active amLODIPine Besylate 5 MG Oral Tablet (Norvasc)Indicati ons:HTN, goal below 140/90,Old [place] (myocardial infarction) TAKE 1 TABLET BY MOUTH EVERY DAY 90 Tablet 3 3 Active Ezetimibe 10 MG Oral Tablet (Zetia)Indication s:HTN, goal below 140/90,Old [place] (myocardial infarction) TAKE 1 TABLET BY MOUTH EVERY DAY 90 Tablet 3 3 Active Metoprolol Succinate ER 25 MG Oral Tablet Extended Release 24 Hour (toPROL XL) Take 1 Tablet by mouth in the morning. 90 Tablet 3 3 Active Isosorbide Mononitrate [...] EVERY DAY 90 Tablet 3 4 Active Pravastatin Sodium 80 MG Oral TabletIndications :Dyslipidemia, goal LDL below 70 TAKE 1 TABLET BY MOUTH EVERY DAY 90 Tablet 3 3 06/02/19 24 Discontinued documented as of this encounter (statuses as of 06/02/2023) Active Problems Problem Noted Date Diagnosed Date Facet arthropathy, multilevel 09/28/2022 Atherosclerosis of [place] co ronary artery of [place] heart with stable angina pectoris 02/17/2021 Age-related osteoporosis wit hout current pathological fracture 02/17/2021 Old [place] (myocardial infarction) 01/03/2019 Chronic rhinitis 07/16/2015 HTN, [...] as of this encounter (statuses as of 06/02/2023) Resolved Problems Problem Noted Date Diagnosed Date [...] as of this encounter (statuses as of 06/02/2023) Immunizations Name Administration Dates Next Due COVID-19 [...] Telephone Encounter - Zena Alexander CRNP - 06/02/2023 10:31 AM EST Signed Prescriptions: Disp Refills Pravastatin Sodium 80 MG Oral Tablet 90 Tab*3 Sig: TAKE 1 TABLET BY MOUTH EVERY DAY Authorizing Provider: ZENA ALEXANDER * Telephone Encounter - Erich Muse RN - 06/02/2023 9:16 AM ESTPending Prescriptions: Disp Refills Pravastatin Sodium 80 MG Oral Tablet [Phar*90 Tab*3 Sig: TAKE 1 TABLET BY MOUTH EVERY DAY * Telephone Encounter - Erich Muse RN - 06/02/2023 9:16 AM EST Pending Prescriptions: Disp Refills Pravastatin Sodium 80 MG Oral Tablet [Pha*90 Tab*3 Sig: TAKE 1 TABLET BY MOUTH EVERY DAY Last Visit: 09/22/2022 (in office), Visit date not found (telemedicine) Next Visit: 07/08/2023 Last medication order date: 06/04/2022 Have you choosen a preferred pharm?? yes Patient Active Problem List Diagnosis Code Gastroesophageal reflux disease without esophagitis K21.9 ASCVD I25.10 GENERALIZED ANXIETY DIS F41.1 Hypothyroidism E03.9 S/P angioplasty with stent Z95.820 DYSLIPIDEMIA, GOAL LDL BELOW 70 E78.5 Type 2 diabetes mellitus with hemoglobin A1c goal of less than 8.0% ([facility]) E11.9 HTN, goal below 140/90 I10 Chronic rhinitis J31.0 Old [place] (myocardial infarction) I25.2 Atherosclerosis of [place] coronary artery of [place] heart with stable angina pectoris ([facility]) I25.118 Age-related osteoporosis without current pathological fracture M81.0 Facet arthropathy, multilevel M47.819 Labs: Lab Results Component Value Date/Time CREATININE - [facility] 1.1 (H) 04/06/2023 08:29 AM CREATININE - [facility] 1.0 03/05/2020 09:12 AM CREATININE, RANDOM URINE - [facility] 51 03/22/2023 11:07 AM CREATININE, RANDOM URINE - [facility] 96 12/27/2018 09:29 AM Lab Results Component Value Date/Time POTASSIUM - [facility] 4.3 04/06/2023 08:29 AM POTASSIUM - [facility] 4.6 03/05/2020 09:12 AM Lab Results Component Value Date/Time TSH - [facility] 0.20 (L) 04/06/2023 08:29 AM TSH - [facility] 0.41 03/05/2020 09:12 AM Lab Results Component Value Date/Time LDL (CALCULATED) 179. (HH) 03/31/1996 09:30 AM LDL CHOLESTEROL (CALCULATED) - [facility] 69 12/10/2021 08:50 AM LDL CHOLESTEROL (CALCULATED) - [facility] 62 02/13/2021 08:32 AM LDL CHOLESTEROL (CALCULATED) - [facility] 79 09/20/2019 08:41 AM LDL CHOLESTEROL (CALCULATED) - [facility] UNINTERPRETABLE RESULT 12/27/2018 09:21 AM LDL CHOLESTEROL (DIRECT MEASURE) - [facility] NOT APPLICABLE 09/20/2019 08:41 AM LDL CHOLESTEROL (DIRECT MEASURE) - [facility] 123 12/27/2018 09:21 AM LDL CHOLESTEROL (DIRECT MEASURE) - [facility] 82 07/06/2013 09:22 AM LDL CHOLESTEROL (DIRECT MEASURE) - [facility] 82 04/26/2013 09:10 AM Lab Results Component Value Date/Time ALT 12 (L) 03/31/1996 09:30 AM ALT - [facility] 17 04/06/2023 08:29 AM ALT - [facility] 33 03/05/2020 09:12 AM Hemoglobin AIC Results: Lab Results Component Value Date/Time HEMOGLOBIN A1C - [facility] 6.4 (H) 04/06/2023 08:29 AM HEMOGLOBIN A1C - [facility] 7.2 (H) 06/09/2022 09:10 AM HEMOGLOBIN A1C - [facility] 7.9 (H) 12/10/2021 08:50 AM HEMOGLOBIN A1C - [facility] 7.6 (H) 03/05/2020 09:12 AM HEMOGLOBIN A1C - [facility] 7.7 (H) 09/20/2019 08:41 AM HEMOGLOBIN A1C - [facility] 7.8 (H) 05/08/2019 09:12 AM documented in this encounter Plan of Treatment Upcoming Encounters Date Type Department Care Team (Late st Contact Info) Description 07/08/2023 3:00 PM EST Office [facility] [address] [facility] [place] [address] Ricardo Deluna MD [address] [place] [address] 08/17/2023 5:40 PM EDT Office Visit [facility] [address] [place] [address] Viktor Mcdonald MD [address] [place] [address] Health Maintenance Due Date Last Done Comments [...] D LEVEL ONCE IN A LIFETIME-USE SMARTSET# [id number] Completed 06/09/2022 GARDASIL-HPV IMMUNIZATION SERIES Aged Out No longer eligible based on patient's age to complete this topic MENINGOCOCCAL (MENACTRA/MENVEO) Aged Out No longer eligible based on patient's age to complete this topic documented as of this encounter Medical Devices Implanted Type Area Check Out Cashier Device Identifier Shelf Expiration Date Model / Serial / Lot Mx60 24.0d Implanted:Qty: 1 on 11/15/2014 by Mau Angel MD at [facility] Eye [employer]OMB 04/17/2017 [id number] / / [id number] Lens 23.5 Mx60 - [id number] - [id number] Implanted:Qty: 1 on 01/04/2017 by Terrence Mccormack DO at [facility] Right: Eye [employer]CH [employer] LOMB : SURGICAL 05/16/2019 MX60-23.5 / [id number] / [id number] documented as of this encounter Visit Diagnoses Diagnosis Dyslipidemia, goal LDL below 70 Other and unspecified hyperlipidemia documented in this encounter Advance Directives Documents on File Type Date Recorded Patient Monogram Machine Operator Expl anation Advance Directives and Living [...] 5:19 PM 03/30/2007 4:48 PM Care Teams Form Setter Supervisor Relationship Specialty Start Date End Date Viktor Mcdonald MD [address] [facility] [place] [address] PCP - General 03/04/00 documented as of this encounter
--- OUTSIDE RECORDS SUMMARY | 2023-11-02 07:28 | External Medical Summary | Summary of Care ---
Author Name Unknown Organization [facility] Address [address] [address] Phone [phone] Care Team Providers Care Chemical Mixer Name Role Phone Viktor Mcdonald MD Primary Care Provider [phone] Reason for Visit * Reason Comments eRx-Medication Refill Encounter Details Date Type Department Care Team (Late st Contact Info) Description 06/09/2023 Refill Cardiology, [facility] [address] [place] [id number] LeonidZena lr CRNP [address] [place] [id number] HTN, goal below 140/90* Allergies No known [...] Oral Tablet (Zetia)Indication s:HTN, goal below 140/90,Old MN (myocardial infarction) TAKE 1 TABLET BY MOUTH [...] Oral Tablet (Norvasc)Indicati ons:HTN, goal below 140/90,Old MN (myocardial infarction) TAKE 1 TABLET BY MOUTH EVERY DAY 90 Tablet 3 3 06/09/19 24 Discontinued Metoprolol Succinate ER 25 MG Oral Tablet Extended Release 24 Hour (toPROL XL) Take 1 Tablet by mouth in the morning. 90 Tablet 3 3 06/09/19 24 Discontinued documented as of this encounter (statuses as of 06/09/2023) Active Problems Problem Noted Date Diagnosed Date Facet arthropathy, multilevel 09/28/2022 Atherosclerosis of [place] co ronary artery of [place] heart with stable angina pectoris 02/17/2021 Age-related osteoporosis wit hout current pathological fracture 02/17/2021 Old MN (myocardial infarction) 01/03/2019 Chronic rhinitis 07/16/2015 HTN, [...] 3:09 PM EST Signed Prescriptions: Disp Refills Metoprolol Succinate ER 25 MG Oral Tablet *90 Tab*3 Sig: TAKE 1 TABLET BY MOUTH EVERY DAY IN THE MORNING Authorizing Provider: ZENA ALEXANDER * Telephone Encounter - Yecenia Garcia COT - 06/09/2023 3:04 PM ESTPending Prescriptions: Disp Refills Metoprolol Succinate ER 25 MG Oral Tablet *90 Tab*3 Sig: TAKE 1 TABLET BY MOUTH EVERY DAY IN THE MORNING * Telephone Encounter - Yecenia Garcia COT - 06/09/2023 3:04 PM EST Did you pend patient's preferred pharmacy and medication before forwarding?yes Pharmacy: [id number] [address] Pending Prescriptions: Disp Refills Metoprolol Succinate ER 25 MG Oral Tablet*90 Tab*3 Sig: TAKE 1 TABLET BY MOUTH EVERY DAY IN THE MORNING Last Visit: 09/22/2022 (in office), Visit date not found (telemedicine) Next Visit: Visit date not found If no future appointments scheduled, and last appointment is greater than a year ago, please schedule patient for a follow-up appointment Last date the medication was ordered: 08-12-2022 Is this request for a controlled substance?No [...] Description 08/17/2023 5:40 PM EDT Office Visit [facility] [address] [place] [address] Viktor Mcdonald MD [address] [facility] [place] [phone] Health Maintenance Due Date Last Done Comments [...] D LEVEL ONCE IN A LIFETIME-USE SMARTSET# [id number] Completed 06/09/2022 GARDASIL-HPV IMMUNIZATION SERIES Aged Out No longer eligible based on patient's age to complete this topic MENINGOCOCCAL (MENACTRA/MENVEO) Aged Out No longer eligible based on patient's age to complete this topic documented as of this encounter Medical Devices Implanted Type Area Engineer Technical Staff Device Identifier Shelf Expiration Date Model / Serial / Lot Mx60 24.0d Implanted:Qty: 1 on 11/15/2014 by Mau Angel MD at OR [facility] Eye [employer] 04/17/2017 [id number] / / [id number] Lens 23.5 Mx60 - [id number] - [id number] Implanted:Qty: 1 on 01/04/2017 by Terrence Mccormack DO at OR [facility] Right: Eye [employer] : SURGICAL 05/16/2019 MX60-23.5 / [id number] / [id number] documented as of this encounter Visit Diagnoses Diagnosis HTN, goal below 140/90- Primary Unspecified essential hypertension documented in this encounter Advance Directives Documents on File Type Date Recorded Patient Crewman Armoured Personnel Carrier M113 Expl anation Advance Directives and Living Will [...] 5:19 PM 03/30/2007 4:48 PM Care Teams Chemical Mixer Relationship Specialty Start Date End Date Viktor Mcdonald MD [address] [place] [address] PCP - General 03/04/00 documented as of this encounter
--- NOTE | 2023-11-02 08:16 | Pre Anesthesia Assessment ---
Date of Service November 02, 2023 Pre Sedation Assessment Vital Signs Pulse Resp BP Pulse Ox O2 Del Method 11/02/23 07:13 56 L 14 141/86 H 96 Room Air Cardiovascular RRR, no murmur, no edema Respiratory normal respiratory effort, lungs clear to auscultation Pre-Sedation Airway Assessment Smoking Status: Former smoker Hx Sleep Apnea: No Short, Thick Neck: No Thyromental Distance: > or= 3.5 Finger Breadths Oral Cavity: + Dentures Mallampati Class: II ASA: ASA2 NPO Status Date of Last Intake of Fluids: 11/02/23 Time of Last Intake of Fluids: 06:15 Last Oral Intake of Fluids Comment: sips with meds Date of Last Intake of Solid Food: 11/01/23 Time of Last Intake of Solid Foods: 20:30 Procedure Planning Contraindications for Sedation: none Current Medications Reviewed: Yes Notes The planned sedation has been discussed with the patient. Informed Consent was obtained. I have identified the patient, determined the appropriateness of sedation and have assessed the patient immediately prior to the procedure. All medicine(s) and interventions are by my order.
--- NOTE | 2023-11-02 08:16 | History & Physical Bridge Note ---
Date of Service November 02, 2023 History & Physical Bridge Note I have examined the patient, reviewed the History & Physical and in the interval since the performance of the History & Physical I have noted the following changes of clinical significance: no changes noted
--- NOTE | 2023-11-02 09:27 | Cardiac Catheterization ---
Cardiac Cath Procedure Brief Procedure Date November 02, 2023 Pre-Procedure Diagnosis Pre-Procedure Diagnosis: Angina AUC Score AUC Score: 7 Post-Procedure Diagnosis Post-Procedure Diagnosis: Severe CAD Procedure(s) Performed Procedure(s) Performed: Coronary Angiography and Left Heart Cath Bag Press Operator Ricardo Deluna MD Beaming Machine Operator(s) Lakisha Gallardo Estimated Blood Loss Estimated Blood Loss: <15cc Medication(s) Medication(s): Fentanyl (12.5 mcg IV), Heparin (5000 units IV), Lidocaine 1% (Local infiltration access site), Nicardipine (300mcg and 250 mcg intra-arterial after arterial sheath insertion) and Versed (1 mg IV) Preliminary Findings Impression: Right dominant coronary anatomy Diffuse coronary artery disease with 90% proximal left anterior descending stenosis Patent mid LAD and mid right coronary artery stents Right coronary artery with 50% ostial stenosis Tortuous right innominate artery Procedure: Left heart catheterization, coronary angiography via right radial access Catheters: 6 Vietnamese long radial glide sheath, 5 Vietnamese [place], 5 Vietnamese 3 DRC, [place] and JR 5 unsuccessful right coronary access Procedural notes: High takeoff right coronary artery with tortuosity right innominate Coronary angiography: Right dominant anatomy Left main: Short with mild calcification no obstruction Left anterior descending: Type III in distribution with diffuse disease. It gives rise to a trivial first diagonal branch and then a very large septal branch before continuing giving rise to 2 distal small diagonal branches in its midportion. The left anterior descending has a 90% stenosis in its proximal portion prior to a large septal branch. Area of prior stenting in mid vessel is patent with smooth 40% narrowing proximally. Mid and distal left anterior descending have serial stenoses of 7080 and 90%. Left circumflex: Large caliber but nondominant vessel. It gives rise to a trivial first marginal branch, large obtuse marginal branch and 2 large posterolateral branches along the AV groove. Most distal vessel is bifurcating and extends to the apex. Left circumflex has diffuse moderate irregularities all vessels of 30 to 40% no high-grade obstruction. Right coronary artery: High anterior takeoff. Gives rise to 3 small right ventricular branches a modest caliber posterior sending artery and bifurcating terminal posterior ventricular branch. Area of previous stent in the mid vessel has 40% in-stent stenoses but no high- grade obstruction. Ostial right coronary artery is a 50% origin stenosis but not critical obstruction. Posterior descending artery is thin and diffusely diseased. LV angiography: Not performed. LVEDP 10 Recommendations Recommendations: PCI without planned CABG Specimens Specimens: None Fluids (cc crystalloids) Fluids (cc crystalloids): 100 Anesthesia Start time: 08 35, stop time: 0910 Procedural Complication(s) None Disposition PCI same setting
--- NOTE | 2023-11-02 09:41 | Cardiac Catheterization ---
Cardiac Cath Procedure Full Procedure Date November 02, 2023 Pre-Procedure Diagnosis Pre-Procedure Diagnosis: Angina AUC Score AUC Score: 7 Post-Procedure Diagnosis Post-Procedure Diagnosis: Severe CAD Procedure(s) Performed Procedure(s) Performed: Coronary Angiography and Left Heart Cath Movement Education Specialist Ricardo Deluna MD Sausage Grinder(s) Lakisha Gallardo Estimated Blood Loss Estimated Blood Loss: <15cc Medication(s) Medication(s): Fentanyl (12.5 mcg IV), Heparin (5000 units IV), Lidocaine 1% (Local infiltration access site), Nicardipine (300mcg and 250 mcg intra-arterial after arterial sheath insertion) and Versed (1 mg IV) Summary of Findings Impression: Right dominant coronary anatomy Diffuse coronary artery disease with 90% proximal left anterior descending stenosis Patent mid LAD and mid right coronary artery stents Right coronary artery with 50% ostial stenosis Tortuous right innominate artery Procedure: Left heart catheterization, coronary angiography via right radial access Catheters: 6 Maltese long radial glide sheath, 5 Maltese [place], 5 Maltese 3 DRC, [place] and JR 5 unsuccessful right coronary access Procedural notes: High takeoff right coronary artery with tortuosity right innominate Coronary angiography: Right dominant anatomy Left main: Short with mild calcification no obstruction Left anterior descending: Type III in distribution with diffuse disease. It gives rise to a trivial first diagonal branch and then a very large septal branch before continuing giving rise to 2 distal small diagonal branches in its midportion. The left anterior descending has a 90% stenosis in its proximal portion prior to a large septal branch. Area of prior stenting in mid vessel is patent with smooth 40% narrowing proximally. Mid and distal left anterior descending has difffuse disease with serial stenoses of 70, 80 and 90%. Left circumflex: Large caliber but nondominant vessel. It gives rise to a trivial first marginal branch, large obtuse marginal branch and 2 large posterolateral branches along the AV groove. Most distal vessel is bifurcating and extends to the apex. Left circumflex has diffuse moderate irregularities all vessels of 30 to 40% no high-grade obstruction. Right coronary artery: High anterior takeoff. Gives rise to 3 small right ventricular branches a modest caliber posterior sending artery and bifurcating terminal posterior ventricular branch. Area of previous stent in the mid vessel has 40% in-stent stenoses but no high- grade obstruction. Ostial right coronary artery is a 50% origin stenosis but not critical obstruction. Posterior descending artery is thin and diffusely diseased. LV angiography: Not performed. LVEDP 10 Hemodynamics Rest Ao:: 120/54/116 Final Ao: 151/59/112 LV: 144/2/10 Recommendations Recommendations: PCI without planned CABG Specimens Specimens: None Radiation Exposure (mGy) 1229 Contrast (mls) 100 Fluids (cc crystalloids) Fluids (cc crystalloids): 100 Anesthesia Start time: 08 35, stop time: 0910 Procedural Complication(s) None Disposition PCI same setting I attest to the content of the Intraoperative Record and any orders documented therein. Any exceptions are noted below. ACC Data: Delivery Mgr Cardiac Status Clinical evaluation leading to the procedure\ 78-year-old female with known coronary disease with prior apical infarct, two- vessel coronary stenting in remote past with increasing anginal symptoms exertional shortness of breath and acute dyspnea CAD Presenation: Stable angina Anginal Classification: CCS III Heart Failure: No Cardiogenic Shock within 24 Hours: No Cardiac Arrest within 24 Hours: No Imaging Studies Past 6 Months: Yes Stress Studies Past 6 Months: No Standard Exercise Test: No Stress Echocardiogram: No Stress Testing w/SPECT MPI: No Cardiac CTA: No Coronary Anatomy Dominant: Right Left Main (% Stenosis): Normal LAD (% Stenosis): Proximal (90), Mid (Patent stent with 40% proximal in-stent stenosis) and Distal (70, 80, 90) D1 (% Stenosis): Normal D2 (% Stenosis): Normal D3 (% Stenosis): Normal Circumflex (% Stenosis): Proximal (30, 40) OM1 (% Stenosis): Mid (Moderate irregular) OM2 (% Stenosis): Normal OM3 (% Stenosis): Normal L PL1 (% Stenosis): Normal L PL2 (% Stenosis): Normal RCA (% Stenosis): Ostial (50) and Mid (Patent stent with 40% in-stent stenosis) R PDA (% Stenosis): Mid (Thin and diffusely diseased) R PL1 (% Stenosis): Normal Left Ventricular Angiography EF (%): N/A Diagnostic Physicians Name: Ricardo Deluna MD Status: Elective Closure Device Percutaneous Entry Location: Radial Recommendations: PCI without planned CABG
[2023-11-02] MEDS: LIDOCAINE 1% LOCAL 20 ML VIAL ONE (09:57)
[2023-11-02] MEDS: HEPARIN (PORCINE) 1000 UNIT/ML 10 ML (CATH LAB USE ONLY) ONE (09:58)
[2023-11-02] MEDS: MIDAZOLAM HCL 1 MG/ML 2ML VIAL ONE (09:58)
[2023-11-02] MEDS: fentaNYL citrate PF 100 MCG/2 ML VIAL ONE (09:58)
[2023-11-02] MEDS: IODIXANOL (VISIPAQUE) 320 MG/ML 100ML IV ONE (09:59)
[2023-11-02] MEDS: niCARdipine HCL INJ 2.5 MG/ML 10 ML AMP ONE (09:59)
[2023-11-02] MEDS: NITROGLYCERIN/D5W 100MCG/ML 20ML SYR ONE (10:00)
[2023-11-02] MEDS: CLOPIDOGREL BISULFATE 300 MG TAB ONE (10:00)
[2023-11-02] MEDS: OPTIRAY 350 ONE (10:00)
--- NOTE | 2023-11-02 10:13 | Post Anesthesia Assessment ---
Date of Service November 02, 2023 Post Sedation Assessment Vital Signs Pulse Resp BP Pulse Ox O2 Del Method 11/02/23 10:01 55 L 14 156/72 H 98 Room Air 11/02/23 07:13 56 L 14 141/86 H 96 Room Air Recovery Score Activity: Moves 4 extremities Respiration: Deep Breath/Cough Circulation: +/-20% PreAnes Value Consciousness: Fully Awake Oxygen Saturation: > 92% On Room Air Post Anesthesia Score: 8 Discharge Sedation Level of Care: Fast Track Phase II Post Sedation Plan On clinical assessment, the patient appears to have tolerated the sedation without complications. Patient is recovering as anticipated. Patient will continue to be monitored by nursing and may be discharged when sedation discharge criteria are met per below protocol. Upon Completions of procedure up to 15 minutes continue every 5 minute vital signs and the P.A.R. score; then discharge to a Phase I or Fast Track to Phase II per the following guidelines: * Discharge Patient to appropriate Phase II area if PAR is 8 or greater or return to pre- procedure baseline. The post - procedure orders will be as directed. * If PAR score is less than 8 or not return to pre-procedure baseline then patient will follow Phase I monitoring till PAR is reached for Phase II. The Phase I may be done in procedure room or may call to secure a Phase I area. * If naloxone or flumazenil are used for reversal, hold in Phase I for continued monitoring from when last reversal dose was given for a minimum of 60 minutes or longer pending the nurse and/or physician discretion of patient condition before discharge to Phase II. Please call the Sedation Physician to re-evaluate and complete post-note for discharge to Phase II area. Do NOT discharge from procedure sedation or Phase 1 until post- sedation evaluation note is complete by procedure /sedation MD Sedation Discharge Instructions to be given to the patient at discharge to home.
[2023-11-02] MEDS ORDERED: ONDANSETRON INJ 2 MG/ML 2 ML VIAL IV PRN (10:18)
[2023-11-02] MEDS ORDERED: NITROGLYCERIN SL 0.4 MG/TAB TAB SL PRN (10:18)
--- NOTE | 2023-11-02 10:32 | Cardiac Catheterization ---
ACC Data: Tacker Elastic Band Cardiac Status Clinical evaluation leading to the procedure CAD Presenation: Positive Stress Test and Unstable angina Anginal Classification: CCS III Diagnostic Physicians Name: Tayo Barry MD Closure Device Recommendations: PCI without planned CABG Cardiac Cath Procedure Full Procedure Date November 02, 2023 Pre-Procedure Diagnosis Pre-Procedure Diagnosis: Angina AUC Score AUC Score: 7 Post-Procedure Diagnosis Post-Procedure Diagnosis: Severe CAD Procedure(s) Performed Procedure(s) Performed: Coronary Angiography and Drug Eluting Stent Automotive Painter Helper Tayo Barry MD Umbrella Finisher(s) [place] Estimated Blood Loss Estimated Blood Loss: <15cc Medication(s) Medication(s): Clopidogrel, Fentanyl (12.5 mcg IV), Heparin (5000 units IV), Nicardipine (300mcg and 250 mcg intra-arterial after arterial sheath insertion), Nitroglycerin and Versed (1 mg IV) Summary of Findings Indication: Accelerating angina, abnormal stress test, history of multivessel CAD Access: 6 Fr right radial artery Catheters: EBU 3.5 guide Findings: For full details of patient's coronary angiography please see cath report dictated by Dr. Deluna. Briefly, patient found to have 90+% proximal LAD stenosis. Decision to proceed with PCI. -- PCI -- Antithrombotic therapy: Heparin, clopidogrel Procedure: Left main cannulated with EBU 3.5 guide Pre-procedure flow TANYA 3 [place]iting Can Worker 50 wire passed across lesion into distal vessel Proximal LAD lesion predilated with 2.0 compliant balloon Dilated lesion stented with 2.5 x 22 mm Wally drug-eluting stent Stent post-dilated with 2.75 noncompliant balloon IC vasodilators administered for spasm Post procedure TANYA 3 flow, stent well expanded with minimal residual stenosis and no apparent cardiac complications. Arterial Closure: TR band Summary: 1. Successful PCI of proximal to mid LAD with single drug-eluting stent (2.5 x 22 mm [place]: Postdilated with 2.75 NC) overlapping proximal aspect of prior stent. Recommendations: To PCU for continued monitoring Loaded with clopidogrel 600 mg in Tacker Elastic Band Continue dual-antiplatelet therapy for at least 6 months, consider extended P2 Y12 in the setting of multivessel disease, overlapping stents Continue statin, and ASCVD risk factor modification Consult cardiac Rehab Hemodynamics Rest Ao:: 149/60/20 Final Ao: 113/55/97 LV: -- Recommendations Recommendations: PCI without planned CABG Specimens Specimens: None Radiation Exposure (mGy) 2122 Contrast (mls) 150 Fluids (cc crystalloids) Fluids (cc crystalloids): 100 Anesthesia Start time: 08 35, stop time: 0910 Procedural Complication(s) None Disposition PCU I attest to the content of the Intraoperative Record and any orders documented therein. Any exceptions are noted below. MN[facility] Card Cath Procedure Codes Moderate Sedation Procedure 1: Sedation/Anesthesia: 18643 Mod Sedation by the same physician; Ea Additi onal15 Minutes Stenting Procedure 1: Cardiovascular Stent Procedures: 00149 Perc transcatheter placement of intracoronary stent(s), with ang PG Care Time/CCT Total # of Minutes Spent Total Time Spent with Patient: Total time spent is greater than 50% in coordination of care (as documented) at patient's floor/unit and/or counseling patient:
[2023-11-02] MEDS ORDERED: CARBOHYDRATES FOR HYPOGLYCEMIA PO PRN (11:45)
[2023-11-02] MEDS ORDERED: DEXTROSE 50% 50 ML SYRINGE IV PRN (11:45)
[2023-11-02] MEDS ORDERED: GLUCOSE 40% GEL 15 GM TUBE PO PRN (11:45)
[2023-11-02] MEDS ORDERED: GLUCAGON FOR INJ 1 MG VIAL SQ PRN (11:45)
[2023-11-02] MEDS ORDERED: GLUCOSE 10 TAB/TUBE PO PRN (11:45)
--- NOTE | 2023-11-02 11:49 | History & Physical Report ---
Date of Service November 02, 2023 Assessment & Plan (1) CAD (coronary artery disease): Plan s/p [place] cath ho cad Pt was evaluated for multivessel CAD, progressive dyspnea and abnormal stress test. Underwent cath, 1 new CARMEN overlapping with old stent. Patient hemodynamically stable postprocedure. Discussed with oil inspector, resumed DAPT and other cardiac medications. Plan to observe her overnight. Continue telemetry monitoring, EKG with chest pain. Other chronic medical conditions: HLD, HTN, T2DM----- continue with/resume home meds as and when able. Sliding scale insulin while in the hospital. DVT prophylaxis: Heparin subcu Full code History of Present Illness Chief Complaint: s/p cath Primary Care Provider: Viktor Mcdonald MD 78-year-old lady with PMH of CAD, T2DM, HTN, HLD who was evaluated for multives kaylin CAD, progressive dyspnea and abnormal stress test as an outpatient and who underwent cardiac cath today with 1 new CARMEN stent overlapping with old stent as she had 95% proximal LAD blockage. Procedure was uncomplicated. Discussed with oil inspector, patient's medications has been resumed. Medical cardiology will be consulted. Patient denies any chest pain, reports feeling better. Patient denies any fever/palpitation/sore throat/cough/belly pain/acute changes in bowel, bladder, appetite habits. Patient reports passive smoking, quit 37 years ago, denies alcohol and recreatio nal drug use. Full code Allergies Allergy/AdvReac Type Severity Reaction Status Date / Time No Known Allergies Allergy Mild Verified 11/19/05 10:08 Home Medications Medication Instructions Recorded Confirmed Type B12 1,000 mcg PO DAILY 11/02/23 11/02/23 History Celexa 20 mg PO DAILY 11/02/23 11/02/23 History Imdur 60 mg PO DAILY 11/02/23 11/02/23 History Nitrostat 0.4 mg sublingual PRN Chest Pain 11/02/23 History Norvasc 5 mg PO DAILY 11/02/23 11/02/23 History Zetia 10 mg PO DAILY 11/02/23 11/02/23 History aspirin 81 mg PO DAILY 11/02/23 11/02/23 History glipizide 10 mg PO BID 11/02/23 11/02/23 History hydrochlorothiazide 25 mg PO 3XWK 11/02/23 11/02/23 History levothyroxine 88 mcg PO DAILY 11/02/23 11/02/23 History losartan 50 mg PO DAILY 11/02/23 11/02/23 History metformin 850 mg PO TID 11/02/23 11/02/23 History metoprolol succinate 25 mg PO DAILY 11/02/23 11/02/23 History pravastatin 80 mg PO DAILY 11/02/23 11/02/23 History Past Med/Surg History Problem List (Updated 11/02/23 @ 11:54 by Carmen Quintanilla MD) CAD (coronary artery disease) Social History Smoking Status: Former smoker Hx Alcohol Use: No Hx Substance Use: No Preferred Language: Turkmen Communication Ability: Effective Purification Director Required: No Beliefs That Will Affect Care: None Current Living Situation: Family Other Information That Helps Us Care for You: No Feels Safe at Home: Yes Safety Concerns: Feels Safe At This Time Assistive Devices: None Review of Systems Review of Systems: Negative otherwise mentioned in HPI. Physical Exam Physical Exam: GENERAL: Alert and oriented x3. NAD, on RA. HEENT: No pallor, no icterus. Pupils equal, round and reactive to light. Oral mucosa moist. NECK: No JVD, no neck masses. HEART: S1 and S2 heard. Regular rate and rhythm. No murmur, no gallop. RESPIRATORY SYSTEM: Normal AP diameter. No accessory muscle use. No wheezing, no crackles. ABDOMEN: Soft, bowel sounds present, nontender, no distention. CENTRAL NERVOUS SYSTEM: No facial droop. Speech is clear. Obeys simple commands. Moves extremities. EXTREMITIES: No edema, no erythema seen. Rt radial band noted. Results & Data Results & Data Vital Signs (Past 12 Hours) Vital Signs Pulse Resp BP Pulse Ox O2 Del Method 11/02/23 11:31 55 L 14 138/60 97 Room Air 11/02/23 11:16 56 L 14 140/77 98 Room Air 11/02/23 11:01 54 L 14 130/79 95 Room Air 11/02/23 10:46 54 L 14 102/74 95 Room Air 11/02/23 10:31 55 L 14 116/72 97 Room Air 11/02/23 10:16 56 L 14 130/63 98 Room Air 11/02/23 10:01 55 L 14 156/72 H 98 Room Air 11/02/23 07:13 56 L 14 141/86 H 96 Room Air Code Status & VTE Plan VTE Prophylaxis Plan VTE Prophylaxis will be ordered: Yes
[2023-11-02 14:34] LABS: Hematocrit (blood only) 35.4 % (37.0-47.0); Hemoglobin 11.9 g/dl (12.0-16.0); Mean Corpuscular Hemoglobin 27.7 pg (25.0-34.0); Mean Corpuscular Hgb Conc 33.6 g/dL (32.0-36.0); Mean Corpuscular Volume 82.3 fL (80.0-100.0); Mean Platelet Volume 10.8 fL (9.4-12.4); Platelet Count 167 K/uL (130-400); RDW Coefficient of Variation 14.8 % (11.5-14.5); RDW Standard Deviation 44.2 fL (36.4-46.3); White Blood Count 7.11 K/ul (4.8-10.8)
[2023-11-02] MEDS: SODIUM CHLORIDE 0.9% 1,000 ML IV SCH (14:40)
[2023-11-02 14:50] LABS: Albumin Globulin Ratio 1.3 (0.9-2); BUN Creatinine Ratio 18.1 (10-20); Bilirubin,Total 0.7 mg/dl (0.2-1.0); Creatinine Clr Calc Pharmacy 30.1 ml/min; Est GFR (African American) 39.9 ml/min; Est GFR (Non-African American) 34.5 ml/min; Globulin 3.2 gm/dl (2.5-4.0); Magnesium 1.8 mg/dl (1.7-2.4); Phosphorus 3.4 mg/dl (2.5-4.9); Potassium 4.1 mmol/L (3.5-5.1); Total Protein 7.2 gm/dl (6.0-8.3)
--- NOTE | 2023-11-02 15:14 | Communication Note ---
Date of Service: November 02, 2023 Patient reexamined postcardiac intervention. Tolerated procedure well. No further chest pains or discomfort Plan as outlined addition of clopidogrel to medical regimen continue prehospital medications including thyroid replacement Office contacted to arrange outpatient follow-up Cardiac rehab referral
[2023-11-02] MEDS: INSULIN ASPART PER UNIT CHARGE SC SCH (17:23)
[2023-11-03 08:07] LABS: Hematocrit (blood only) 38.1 % (37.0-47.0); Hemoglobin 12.5 g/dl (12.0-16.0); Mean Corpuscular Hemoglobin 26.9 pg (25.0-34.0); Mean Corpuscular Hgb Conc 32.8 g/dL (32.0-36.0); Mean Corpuscular Volume 81.9 fL (80.0-100.0); Mean Platelet Volume 10.6 fL (9.4-12.4); Platelet Count 140 K/uL (130-400); RDW Coefficient of Variation 14.8 % (11.5-14.5); RDW Standard Deviation 43.8 fL (36.4-46.3); Red Blood Count 4.65 M/uL (4.20-5.40); White Blood Count 5.64 K/ul (4.8-10.8)
[2023-11-03 08:12] LABS: Estimated Average Glucose 166 mg/dl; Hemoglobin A1C 7.4 % (4.5-5.6)
[2023-11-03] MEDS: EZETIMIBE 10 MG TAB PO SCH (08:16)
[2023-11-03] MEDS: LOSARTAN POTASSIUM 50 MG TAB PO SCH (08:16)
[2023-11-03] MEDS: PRAVASTATIN SOD 40 MG TAB PO SCH (08:16)
[2023-11-03] MEDS: METOPROLOL SUCC 25MG EXT REL TAB PO SCH (08:17)
[2023-11-03] MEDS: CLOPIDOGREL BISULFATE 75 MG TAB PO SCH (08:17)
[2023-11-03] MEDS: ISOSORBIDE MONO EXTENDED REL 60 MG TABCR PO SCH (08:17)
[2023-11-03] MEDS: ASPIRIN 81 MG ECTAB PO SCH (08:17)
[2023-11-03] MEDS: amLODIPine BESYLATE 5 MG TAB PO SCH (08:17)
[2023-11-03 08:38] LABS: Calcium 9.2 mg/dl (8.6-10.3); Creatinine Clr Calc Pharmacy 33.9 ml/min; Est GFR (Non-African American) 39.7 ml/min; Phosphorus 3.5 mg/dl (2.5-4.9)
--- NOTE | 2023-11-03 10:39 | Discharge Summary ---
Discharge Summary Date of Service November 03, 2023 Principal Dx & Hospital Course #1 = Principal Diagnosis (1) CAD (coronary artery disease): Plan Ms. Catherine is a 78 year old woman with PMH of CAD, T2DM, HTN, HLD who was noted to have progressive dyspnea and abnormal stress test. Patient underwent cardiac catheterization on 11/01. Cath revealed mulitvessel CAD and 1 CARMEN placed in prox/mid LAD overlapping previously placed stent. Patient was asymptomatic after procedure. Denies palpitations, chest pain or other acute concerns. Cardiology recommended continuing home regimen with the addition of plavix for DAPT for 6 months. #Multivessel CAD s/p CARMEN to midLAD #Ishcemic Cardiomyopathy #LBBB s/p successful PCI to prox/mid LAD s/p CARMEN overlapping the proximal aspect of prior stent. Patient remained hemodynamically stable postprocedure. Continue DAPT: Plavix, ASA Continue metoprolol XL Other chronic medical conditions: HLD, HTN, T2DM----- continue with/resume home meds upon discharge Notes For Next Care Provider Medication Changes From Visit Plavix 75 mg daily Admission HPI Per Admitting Provider 78-year-old lady with PMH of CAD, T2DM, HTN, HLD who was evaluated for multivessel CAD, progressive dyspnea and abnormal stress test as an outpatient and who underwent cardiac cath today with 1 new CARMEN stent overlapping with old stent as she had 95% proximal LAD blockage. Procedure was uncomplicated. Discu ssed with chief clinical dietitian, patient's medications has been resumed. Medical cardiology will be consulted. Patient denies any chest pain, reports feeling better. Patient denies any fever/palpitation/sore throat/cough/belly pain/acute changes in bowel, bladder, appetite habits. Patient reports passive smoking, quit 37 years ago, denies alcohol and recreational drug use. Full code Admission Exam Per Admitting Provider GENERAL: Alert and oriented x3. NAD, on RA. HEENT: No pallor, no icterus. Pupils equal, round and reactive to light. Oral mucosa moist. NECK: No JVD, no neck masses. HEART: S1 and S2 heard. Regular rate and rhythm. No murmur, no gallop. RESPIRATORY SYSTEM: Normal AP diameter. No accessory muscle use. No wheezing, no crackles. ABDOMEN: Soft, bowel sounds present, nontender, no distention. CENTRAL NERVOUS SYSTEM: No facial droop. Speech is clear. Obeys simple commands. Moves extremities. EXTREMITIES: No edema, no erythema seen. Rt radial band noted. Discharge Exam Constitutional WD/WN, vitals as above Respiratory normal respiratory effort, lungs clear to auscultation Cardiovascular RRR, no murmur, no edema Neurologic PERRL, EOMI, accommodation nl, no face palsy, no dysarthria Updated Medication List Medication Instructions Recorded Confirmed Type B12 1,000 mcg PO DAILY 11/02/23 11/02/23 History Celexa 20 mg PO DAILY 11/02/23 11/02/23 History Imdur 60 mg PO DAILY 11/02/23 11/02/23 History Nitrostat 0.4 mg sublingual PRN Chest Pain 11/02/23 History Norvasc 5 mg PO DAILY 11/02/23 11/02/23 History Zetia 10 mg PO DAILY 11/02/23 11/02/23 History aspirin 81 mg PO DAILY 11/02/23 11/02/23 History glipizide 10 mg PO BID 11/02/23 11/02/23 History hydrochlorothiazide 25 mg PO 3XWK 11/02/23 11/02/23 History levothyroxine 88 mcg PO DAILY 11/02/23 11/02/23 History losartan 50 mg PO DAILY 11/02/23 11/02/23 History metformin 850 mg PO TID 11/02/23 11/02/23 History metoprolol succinate 25 mg PO DAILY 11/02/23 11/02/23 History pravastatin 80 mg PO DAILY 11/02/23 11/02/23 History clopidogrel 75 mg tablet 75 mg PO QAM #30 tabs 11/03/23 Rx Hospital Stay Data Consultations 11/02/23 20:14 Consult Cardiology Routine Procedures Performed Operation Date: 11/02/23 08:00 Actual Procedures p Cineradiography w/Routine Exam - Ricardo Deluna MD p Cath, Left with Cors and Vent - Ricardo Deluna MD s Drug Eluting Stent SGl Vessel - Tayo Barry MD Diagnostic Imagining Performed 11/02/23 07:10 CL Cath Imgs for PACS use only Routine Pending Results Patient Have Any Pending Studies at Discharge: No Discharge Instructions Given to Patient (Per Discharging Provider) Pt was evaluated for multivessel CAD, progressive dyspnea and abnormal stress test. Underwent cath, 1 new CARMEN overlapping with old stent. Patient reexamined postcardiac intervention. Tolerated procedure well. No further chest pains or discomfort You were admitted for further evaluation of abnormal stress test. You underwent catheterization on 11/01, where it was noted that you have many vessels with with coronary artery disease. You had a stent placed in the vessel where it was notable narrowed. You will need to continue dual-antiplatelet therapy for at least 6 months: Aspirin 81mg daily and Plavix (clopidogrel) 75mg daily Please continue all your home medications as previously prescribed. Total Time Total Time Spent Total Time Spent (In Minutes): 35
--- NOTE | 2023-11-03 11:50 | Cardiology Progress Note ---
Date of Service November 03, 2023 Assessment & Plan (1) Status post insertion of drug-eluting stent into left anterior descending (LAD) artery: (2) Ischemic cardiomyopathy: (3) Dyslipidemia, goal LDL below 70: (4) LBBB (left bundle branch block): Plan 78-year-old female status post successful PCI of the proximal to mid LAD with a 2.5 x 22 Wally CARMEN overlapping the proximal aspect of prior stent. Discussed importance of continuing dual antiplatelet therapy for minimum of 6 m onths post stent implantation, however, extended treatment may be considered in setting multivessel disease and overlapping stent implantation. Continue other cardiovascular medications as previously ordered. Postcardiac catheterization activity restrictions listed below. Cardiology follow-up as scheduled. ACTIVITY RECOMMENDATIONS: It is common to feel weak and fatigue for a few days. * Do not drive or operate any motorized equipment for the next three days. * Limit stair usage (2 or 3 trips a day only) for the next three days. * Do not lift anything heavier than 10 pounds for the next three days. * Do not engage in vigorous exercise or any sports for the next five days. * You may shower the day after your procedure, but do not immerse the area for three days. Cleanse the site gently with soap and water. SPECIAL CARE INSTRUCTIONS: * You may replace the pressure dressing or band-aid the morning after the procedure. * After your procedure, it is normal to have a small bruise or small lump at the site. Examine your site daily for any change in the bruise or lump, redness, swelling, drainage or numbness. Notify your doctor if any change. BLEEDING: * If there is a small amount of bleeding at the site, lie down and apply firm pressure with a clean cloth for ten minutes. When the bleeding stops, lie quietly keeping the procedure limb straight for six hours. Notify your doctor as soon as possible. * If the bleeding does not stop after ten minutes or if there is a large amount of bleeding or spurting, call 911 immediately. Continue to lie down and hold firm pressure until help arrives. SKIN IRRITATION: * You may experience some redness and/or swelling in the area where radiation was administered. If any skin irritation occurs, please contact your family physician. Admission and Anticipated Discharge Date Admission Date: November 02, 2023 Subjective Patient seen examined the bedside. Feeling well this morning. Denies chest discomfort or heaviness. Notes mild right wrist discomfort and ecchymosis. No hematoma. Review of Systems Review of Systems: All systems reviewed & are unremarkable except as noted in Subjective Physical Exam Constitutional: well developed and well nourished; no acute distress Respiratory: + respiratory distress; no labored breat morgan and no retractions Auscultation: no crackles, no rales, no rhonchi and no wheezes Cardiovascular: Rate/Rhythm: regular rate and regular rhythm Heart Sounds: normal S1, normal S2 and + murmur (1/6 XIMENA) Vessels: radial pulses present; no JVD and no carotid bruit Extremities: no edema Gastrointestinal (Abdomen): Inspection/Auscultation: abdomen normal to inspection and normal bowel sounds; abdomen not distended Percussion/Palpation: abdomen soft; abdomen nontender, no guarding and abdomen not rigid Neurologic: CN's II-XI intact bilaterally and moves all extremities; no focal motor deficits Results & Data Vital Signs (Past 12 Hours) Vital Signs Temp Pulse Pulse Resp BP Pulse Ox O2 Del Method 11/03/23 11:02 36.7 C 63 17 131/66 97 11/03/23 10:22 36.7 C 63 17 131/66 97 Room Air 11/03/23 08:00 Room Air 11/03/23 07:49 36.8 C 65 18 126/73 98 Room Air 11/03/23 07:27 58 L 11/03/23 03:23 36.6 C 55 L 18 129/70 97 Room Air Laboratory Results Cardiac Enzymes 11/02/23 Range/Units 14:16 AST 31 (13-39) U/L CBC 11/02/23 11/03/23 Range/Units 14:16 07:50 WBC 7.11 5.64 (4.8-10.8) K/ul RBC 4.30 4.65 (4.20-5.40) M/uL Hgb 11.9 L 12.5 (12.0-16.0) g/dl Hct 35.4 L 38.1 (37.0-47.0) % Plt Count 167 140 (130-400) K/uL Comprehensive Metabolic Panel 11/02/23 11/03/23 Range/Units 14:16 07:50 Sodium 135 L 138 (136-145) mmol/L Potassium 4.1 4.0 (3.5-5.1) mmol/L Chloride 104 104 (98-107) mmol/L Carbon Dioxide 23 24 (21-32) mmol/L BUN 26 H 23 (6-23) mg/dl Creatinine 1.44 H 1.28 H (0.6-1.2) mg/dl Glucose 168 H 187 H (70-99(Fasting)) mg/dl Calcium 9.0 9.2 (8.6-10.3) mg/dl AST 31 (13-39) U/L ALT 18 (7-52) U/L Alkaline Phosphatase 52 (34-104) U/L Total Protein 7.2 (6.0-8.3) gm/dl Albumin 4.0 (3.4-5.0) gm/dl Intake and Output 11/02/23 11/03/23 11/03/23 22:59 06:59 14:59 Intake Total 700 / 900 200 / 900 0 / 0 Balance 700 / 900 200 / 900 0 / 0 Intake: IV 500 / 500 0 / 0 Sodium Chloride 0.9% 1,000 ml @ 500 / 500 0 / 0 100 mls/hr IV .Q10H [facility] Rx#: [id number] Oral 200 / 400 200 / 400 Other: # Unmeasured Voids 1 Weight 71.9 kg Patient Weight 11/04/23 06:59 Weight 71.9 kg
--- OUTSIDE RECORDS SUMMARY | 2023-11-03 13:26 | External Medical Summary | Summary of Care ---
Author Name Unknown Organization [facility] Address [address] [place] [place] [address] Phone [phone] Care Team Providers Care Gas Generator Operator Name Role Phone Viktor Mcdonald MD Primary Care Provider [phone]- [phone] Reason for Visit * Reason Onset Date Comments Advice 11/02/2023 Encounter Details Date Type Department Care Team (Late st Contact Info) Description 11/02/2023 Telephone Cardiology, [facility] [address] [place] [phone] Ricardo Deluna MD [address] [place] [id number] Advice Allergies No known active allergiesdocumented as of this encounter (statuses as of 11/02/2023) Medications Medication Sig Dispensed Refills Start Date [...] A1c goal of less than 8.0% ([facility]) TEST BLOOD SUGAR THREE TIMES PER DAY [...] Oral Tablet (Norvasc)Indication s:HTN, goal below 140/90,Old [place] (myocardial infarction) TAKE 1 TABLET BY MOUTH EVERY DAY 90 Tablet 3 06/09/2023 Active Citalopram Hydrobromide 20 MG Oral Tablet (CeleXA) TAKE 1 TABLET BY MOUTH EVERY DAY 90 Tablet 1 07/01/2023 Active Ezetimibe 10 MG Oral Tablet (Zetia)Indications: HTN, goal below 140/90,Old [place] (myocardial infarction) TAKE 1 TABLET BY MOUTH [...] as of this encounter (statuses as of 11/02/2023) Active Problems Problem Noted Date Diagnosed Date Chronic kidney disease, stage 3a 08/23/2023 Overview: Per CKD protocol Facet arthropathy, multilevel 09/28/2022 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 Patent prior stents to the mid left anterior descending and mid right coronary artery New high-grade lesion proximal LAD underwent drug-eluting stent with good result. Clopidogrel 75 mg p.o. daily added to read Needs cardiology follow-up 3 to 4 weeks documented in this encounter Plan of Treatment Upcoming Encounters Date Type Department Care Team (Late st Contact Info) Description 03/16/2024 1:20 PM EDT Office Visit [facility] [address] [place] [phone] Viktor Mcdonald MD [address] [place] [address] Health Maintenance Due Date Last Done Comments Zoster Vaccines (1 of 2) 1994 CKD PHOS USE SMARTSET 35308 03/29/2008 03/29/2007, 1 Mammogram 01/07/2021 01/08/2020, 0805/2017, [...] Additional history exists CKD HGB USE SMARTSET 63129 10/26/202410/26, 10/27/2023, 12/10/2021, Additional history exists TSH 10/26/2024 10/27/2023, 07/16, 04/06/2023, Additional history exists Pneumococcal Vaccine: 65+ Years Completed 04/03/2015, 06/23/2010, 10/24/2004 VITAMIN D LEVEL ONCE IN A LIFETIME-USE SMARTSET# 71380 Completed 06/09/2022 GARDASIL-HPV IMMUNIZATION SERIES Aged Out No longer eligible based on patient's age to complete this topic Hepatitis B Aged Out No longer eligi ble based on patient's age to complete this topic MENINGOCOCCAL (MENACTRA/MENVEO) Aged Out No longer eligible based on patient's age to complete this topic documented as of this encounter Medical Devices Implanted Type Area Assistant Program Manager Device Identifier Shelf Expiration Date Model / Serial / Lot Mx60 24.0d Implanted:Qty: 1 on 11/15/2014 by Mau Angel MD at OR [facility] Eye [employer]OM[employer] 04/17/2017 [id number] / [id number] Lens 23.5 Mx60 - [id number] - [id number] Implanted:Qty: 1 on 01/04/2017 by Terrence Mccormack DO at OR [facility] Right: Eye [employer]OM[employer] : SURGICAL 05/16/2019 MX60-23.5 / [id number] / [id number] documented as of this encounter Advance Directives Documents on File Type Date Recorded Patient Commander Internal Affairs Expl anation Advance Directives and Living Will [...] 5:19 PM 03/30/2007 4:48 PM Care Teams Gas Generator Operator Relationship Specialty Start Date End Date Viktor Mcdonald MD [address] [place] [address] PCP - General 03/04/00 documented as of this encounter
--- OUTSIDE RECORDS SUMMARY | 2023-11-03 21:09 | External Medical Summary | Summary of Care ---
Author Name Unknown Organization [facility] Address [address] [place] [facility] [place] [place] [address] Phone [phone] Care Team Providers Care Rail Bonder Name Role Phone Viktor Mcdonald MD Primary Care Provider [phone]- [phone] Encounter Details Date Type Department Care Team (Late st Contact Info) Description 11/02/2023 Result Scan Unspecified Department Ricardo Deluna MD [address] [place] [address] <No scans attached> Allergies No known active allergiesdocumented as of this encounter (statuses as of 11/03/2023) Medications Medication Sig Dispensed Refills Start Date [...] goal of less than 8.0% ([facility]) TEST BLOOD SUGAR THREE TIMES [...] Oral Tablet (Norvasc)Indication s:HTN, goal below 140/90,Old [place] (myocardial infarction) TAKE 1 TABLET BY MOUTH EVERY DAY 90 Tablet 3 06/09/2023 Active Citalopram Hydrobromide 20 MG Oral Tablet (CeleXA) TAKE 1 TABLET BY MOUTH EVERY DAY 90 Tablet 1 07/01/2023 Active Ezetimibe 10 MG Oral Tablet (Zetia)Indications: HTN, goal below 140/90,Old [place] (myocardial infarction) TAKE [...] as of this encounter (statuses as of 11/03/2023) Active Problems Problem Noted Date Diagnosed Date Chronic kidney disease, stage 3a 08/23/2023 Overview: Per CKD protocol Facet arthropathy, multilevel 09/28/2022 Atherosclerosis of [place] ronary artery of [place] heart with stable angina pectoris 02/17/2021 Age-related [...] as of this encounter (statuses as of 11/03/2023) Resolved Problems Problem Noted Date Diagnosed Date [...] as of this encounter (statuses as of 11/03/2023) Immunizations Name Administration Dates Next Due COVID-19 [...] Description 03/16/2024 1:20 PM EDT Office Visit [facility] [address] [place] [phone] [facility]cdonald [facility] [address] [facility] [id number] Health Maintenance Due Date Last Done Comments Zoster Vaccines (1 of 2) 1994 CKD PHOS USE SMARTSET 49092 03/29/2008 03/29/2007, 1 Mammogram 01/07/2021 01/08/2020, 0805/2017, [...] Additional history exists CKD HGB USE SMARTSET 04065 10/26/202410/26, 10/27/2023, 12/10/2021, Additional history exists TSH 10/26/2024 10/27/2023, 07/16, 04/06/2023, Additional history exists Pneumococcal Vaccine: 65+ Years Completed 04/03/2015, 06/23/2010, 10/24/2004 VITAMIN D LEVEL ONCE IN A LIFETIME-USE SMARTSET# [id number] Completed 06/09/2022 GARDASIL-HPV IMMUNIZATION SERIES Aged Out No longer eligible based on patient's age to complete this topic Hepatitis B Aged Out No longer eligi ble based on patient's age to complete this topic MENINGOCOCCAL (MENACTRA/MENVEO) Aged Out No longer eligible based on patient's age to complete this topic documented as of this encounter Medical Devices Implanted Type Area Licensed Surveyor Device Identifier Shelf Expiration Date Model / Serial / Lot Mx60 24.0d Implanted:Qty: 1 on 11/15/2014 by Mau Angel MD at OR [facility] Eye [employer] 04/17/2017 [id number] / / [id number] Lens 23.5 Mx60 - [id number] - [id number] Implanted:Qty: 1 on 01/04/2017 by Terrence Mccormack DO at OR [facility] Right: Eye [employer] : SURGICAL 05/16/2019 MX60-23.5 / [id number] / [id number] documented as of this encounter Procedures Procedure Name Priority Date/Time Associated Diagnosis Comments OUTSIDE LAB RESULTS 11/02/2023 documented in this encounter Results * OUTSIDE LAB RESULTS (11/02/2023) 11/02/2023 Ricardo Deluna MD LABORATORY documented in this encounter Advance Directives Documents on File Type Date Recorded Patient Ceramics Engineer Expl anation Advance Directives and Living Will [...] 5:19 PM 03/30/2007 4:48 PM Care Teams Rail Bonder Relationship Specialty Start Date End Date Viktor Mcdonald MD [address] [place] [address] PCP - General 03/04/00 documented as of this encounter
--- NOTE | 2023-11-05 16:34 | Electrocardiogram Report ---
Test Reason : Blood Pressure : / mmHG Vent. Rate : 055 BPM Atrial Rate : 055 BPM P-R Int : 174 ms QRS Dur : 160 ms QT Int : 510 ms P-R-T Axes : 050 -55 105 degrees QTc Int : 487 ms Sinus bradycardia Left axis deviation Left bundle branch block Abnormal ECG When compared with ECG of 21-SEP-1999 14:39, Vent. rate has decreased BY 36 BPM Left bundle branch block is now Present Minimal criteria for Septal infarct are no longer Present Confirmed by Mau Gamez ([id number]) on 11/05/2023 4:33:51 PM Referred By: Ricardo Deluna Confirmed By:Mau Gamez
== END 2023-11-03 12:57 | disposition home or self-care (01) ==
LOC: 2S 06:56 → CC 06:56